=== PATIENT | male | born 1965 | race Caucasian/White ===

== ENCOUNTER 2023-11-10 13:16 | Outpatient (AMB) | payer OTHER, SELFPAY ==
[2023-11-10 13:19] VITALS: BP 160/92; PULSE 76; TEMP 36.3; O2SAT 95; BMI 31.3
--- NOTE | 2023-11-10 13:19 | MHC.OFFWIV ---
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 Pt has h/o Asthma, but currently not on any medications. Pt has a PCP at [facility] Social History Patient Tobacco Use Status: Never used Tobacco Review of Systems Const All systems reviewed & are unremarkable except as noted in HPI and below Physical Exam Vital Signs: Last Vital Signs Temp 97.3 F 11/10/23 13:19 Pulse 76 11/10/23 13:19 BP 160/92 H 11/10/23 13:19 Pulse Ox 95 11/10/23 13:19 Oxygen Delivery Method Room Air 11/10/23 13:19 BMI result Body Mass Index 31.3 Const General: comfortable and no acute distress Nutritional Appearance: overweight Orientation/consciousness: patient oriented x3 HEENT Head: Yes normocephalic Ears: external ears normal and TM's normal bilaterally General nose exam: Abnormal mucous membranes and turbinates present boggy and erythematous Face and sinus: Yes sinuses nontender Mouth: moist mucous membranes Throat: Yes posterior oropharynx normal Resp Effort & Inspection: normal respiratory effort, able to speak in complete sentences and Actively coughing Auscultation: no crackles, no rales, rhonchi lower bilaterally and wheezes scattered wheezes Cardio Rate: regular rate Rhythm: regular rhythm Neuro General: patient oriented x3, gait normal and moves all extremities Psych Speech and movement: Normal speech and movement present Office Procedures Nebulizer Treatment Nebulizer Treatment [id number] RX initial, or Nebulizer Subsequent Treatment Office Meds ipratropium 0.5 mg-albuterol 3 mg (2.5 mg base)/3 mL nebulization soln Performing Provider: Penny Bowie NP Performing Location: [facility] [place] Administered by: Penny Bowie NP on 11/10/23 16:46 Dose Route Admin Location Dispensed Lot Number Expiration Date NDC Scaffolding Helper 3 mL inhalation 3 mL [id number] [facility] Assessment & Plan Assessment & Plan (1) Asthma with acute exacerbation in adult: Code(s): J45.901 - Unspecified asthma with (acute) exacerbation Qualifiers: Asthma persistence: persistent Asthma severity: moderate Qualified Code(s): J45.41 - Moderate persistent asthma with (acute) exacerbation Plan: - Xray of chest ordered - Take medications as prescribed - Rest. - F/U with PCP. Orders: Orders XR chest 2V Today J45.41 - Moderate persistent asthma with (acute) exacerbation CT chest wo con - High Res Today J45.41 - Moderate persistent asthma with (acute) exacerbation AMB Nebulizer Treatment Today J45.41 - Moderate persistent asthma with (acute) exacerbation Medications: New fluticasone propion-salmeterol 115-21 mcg/actuation (Advair HFA) 2 puffs inhalation BID 12 grams 1RF Asthma J45.41 - Moderate persistent asthma with (acute) exacerbation prednisone 50 mg PO DAILY 5 days 5 tabs 0RF J45.41 - Moderate persistent asthma with (acute) exacerbation doxycycline hyclate 100 mg PO BID 10 days 20 caps 0RF J45.41 - Moderate persistent asthma with (acute) exacerbation azithromycin 500 mg PO DAILY 3 days 3 tabs 0RF J45.41 - Moderate persistent asthma with (acute) exacerbation albuterol sulfate 90 mcg/actuation 2 puffs inhalation Q4-6H PRN 8.5 grams 0RF shortness of breath or wheezing J45.41 - Moderate persistent asthma with (acute) exacerbation Coding Level of Care Code New Pt Level 4 (30702) Diagnoses Moderate persistent asthma with acute exacerbation in adult J45.41 Asthma persistence: persistent Asthma severity: moderate CPT Codes Nebulizer Treatment - Nebulizer Treatment, initial or subsequent: [id number]/MDI RX initial, or Nebulizer Subsequent Treatment ([id number]) Time Spent (min) 20
== END 2023-11-10 14:55 | disposition home or self-care (01) ==
PROVIDERS: PCP Internal Medicine; Visit Provider Nurse Practitioner Family
DX: J45.41 Moderate persistent asthma with (acute) exacerbation (principal)
CPT/HCPCS: 94640; 99204; J7620

== ENCOUNTER 2023-11-10 13:44 | Outpatient (REF) | payer OTHER, SELFPAY ==
--- NOTE | ~2023-11-10 | XR_ITS ---
EXAMINATION: XR CHEST CLINICAL INFORMATION: Persistent asthma with acute exacerbation COMPARISON: None available. TECHNIQUE: 2 views of the chest were obtained. FINDINGS: Abnormal. There is diffuse patchy alveolar opacity noted throughout the lungs chronicity uncertain. Although underlying fibrotic change could've such an appearance that cannot exclude a superimposed acute inflammatory process. High-resolution chest CT would be advised. No pleural effusions. Heart and pulmonary vessels are normal. There is mild spondylitic change in the spine. XR/XR chest 2V IMPRESSION: Diffuse alveolar airspace disease.
== END 2023-11-10 13:45 | disposition home or self-care (01) ==
LOC: HO.HMGCX 13:44
PROVIDERS: PCP Internal Medicine; Visit Provider Nurse Practitioner Family
DX: J45.41 Moderate persistent asthma with (acute) exacerbation (principal)
CPT/HCPCS: 71046

== ENCOUNTER 2023-12-02 15:20 | Outpatient (REF) | payer OTHER, SELFPAY ==
--- NOTE | ~2023-12-02 | CT_ITS ---
EXAMINATION: CT CHEST WITHOUT CONTRAST CLINICAL INFORMATION: Moderate persistent asthma with exacerbation COMPARISON: Chest radiograph 11/10/2023 TECHNIQUE: Multidetector volumetric CT imaging of the chest was obtained after without intravenous contrast. Axial MIP volume rendering provided. Sagittal and coronal reformatted images were obtained. This CT examination was performed using dose optimization techniques as appropriate, variously including the following: *Automated exposure control *Adjustment of mA and/or kV according to patient size (this includes techniques or standardized protocols for targeted exams where dose is matched to indication/reason for exam; i.e. extremities or head) *Use of iterative reconstruction technique DLP: 316 mGy-cm FINDINGS: LUNGS: Innumerable pulmonary masses/nodules are seen scattered throughout the lungs ranging in size from a a few millimeters up to approximately 2 cm (for example 7:117, left lower lobe). Marked bronchial wall thickening is present. MEDIASTINUM: The mediastinum is normal. VASCULAR: Unremarkable. No coronary calcium is seen. PLEURA: There is no pleural effusion. No pleural mass or thickening. AXILLA: No lymphadenopathy. UPPER ABDOMEN: There is cholelithiasis with small layering gallstones without evidence of cholecystitis. OSSEOUS STRUCTURES: Unremarkable. CT/CT chest wo con - High Res IMPRESSION: Innumerable pulmonary masses/nodules. Differential diagnosis would include metastatic disease, septic emboli, granulomatous disease, sarcoidosis, silicosis among others. Pulmonary consultation is recommended. PET/CT or tissue sampling may be indicated. Fleischner guidelines were followed.
== END 2023-12-02 15:21 | disposition home or self-care (01) ==
LOC: HO.CT 15:20
PROVIDERS: PCP Internal Medicine; Visit Provider Nurse Practitioner Family
DX: J45.41 Moderate persistent asthma with (acute) exacerbation (principal)
CPT/HCPCS: 71250

== ENCOUNTER 2023-12-15 08:21 | Outpatient (AMB) | payer OTHER, SELFPAY ==
[2023-12-15 08:39] VITALS: BP 150/100; PULSE 81; TEMP 36.4; O2SAT 96; BMI 29.2
--- NOTE | 2023-12-15 08:39 | AM.OFFWIN_ITS ---
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 Patient states he has had a persistent cough with mild shortness of breath and intermittent chest pain. Patient states he has been prescribed antibiotic therapy as well as prednisone but his cough persists. The patient's states that he has had a 30 lb weight loss since September 06, 2023. Patient denies having any history of IVDU, fevers, chills, hemoptysis or orthopnea. Patient had CT imaging on December 01 which revealed multiple pulmonary masses and nodules and the differential diagnosis includes both metastatic disease and/or septic emboli. Patient denies any recent travel however plans to travel to [place] in two weeks to visit his son. [facility] Medical History (Updated 12/15/23 @ 17:26 by Lesa Alaniz MD) Pulmonary nodules/lesions, multiple Asthma Social History Patient Tobacco Use Status: Never used Tobacco Review of Systems Const Denies chills, Denies fever(s) and Reports weight loss (30lbs since August 2023) Eyes Reports no additional complaints ENT Reports no additional complaints Card Reports no additional complaints, Reports chest pain (intermittent) and Reports dyspnea Resp Reports cough, Denies hemoptysis and Reports dyspnea GI Reports no additional complaints Reports no additional complaints Musc Reports no additional complaints Physical Exam Vital Signs: Last Vital Signs Temp 97.6 F 12/15/23 08:39 Pulse 81 12/15/23 08:39 BP 150/100 H 12/15/23 08:39 Pulse Ox 96 12/15/23 08:39 Oxygen Delivery Method Room Air 12/15/23 08:39 BMI result Body Mass Index 29.2 Patient is afebrile and hypertensive. Const General: cooperative, healthy appearing, comfortable, no acute distress, well developed, alert and awake Nutritional Appearance: average body habitus Orientation/consciousness: patient oriented x3 Limitations: no limitations Resp Effort & Inspection: normal respiratory effort, able to speak in complete sentences, normal respiratory pattern, no audible wheezes, Actively coughing Quality: actively coughing and no respiratory distress Auscultation: rales on the left at the base and wheezes expiratory wheezes Cardio Rate: regular rate Rhythm: regular rhythm Neuro General: patient oriented x3 Psych Appearance: grossly normal Mental Status: mental status grossly normal Insight: Good insight present (Psych) Judgement: Good judgement present (Psych) Results Reviewed Results Reviewed: Reviewed CT imaging from December 01 with patient. Assessment & Plan Assessment & Plan (1) Pulmonary nodules/lesions, multiple: Comment: CT imaging is reviewed. Given the possibility of septic emboli versus metastatic disease, patient is transferred to the emergency department for CTA evaluation and laboratories. Code(s): R91.8 - Other nonspecific abnormal finding of lung field Plan: Patient will go directly to the emergency department for further evaluation and care. fitter placer Joseph notified 9:29am. Coding Level of Care Code Est Pt Level 3 (36102) Diagnoses Pulmonary nodules/lesions, multiple R91.8 Time Spent (min) 25
== END 2023-12-15 09:42 | disposition home or self-care (01) ==
PROVIDERS: PCP Internal Medicine; Visit Provider Physician Assistant
DX: R91.8 Other nonspecific abnormal finding of lung field (principal)
CPT/HCPCS: 99213

== ENCOUNTER 2023-12-15 09:48 | Emergency (ER) | payer OTHER, SELFPAY ==
--- NOTE | ~2023-12-15 | CT_ITS ---
EXAMINATION: CTA CHEST CT ABDOMEN AND PELVIS WITH CONTRAST CLINICAL INFORMATION: Lung mass. Metastatic disease COMPARISON: CT of chest December 02, 2023 TECHNIQUE: A noncontrast localizer was performed, followed by the administration of 85 mL Omnipaque [address] of the chest was then performed. Coronal and sagittal reformatted and 3-D technique MIP images of the chest were completed at the CT scanner and reviewed on the PACS workstation. No adverse effects were reported. Images were then performed through the abdomen and pelvis. Coronal and sagittal reformatted images performed at CT scanner by technologist. [This CT examination was performed using dose optimization techniques as appropriate, variously including the following: *Automated exposure control *Adjustment of mA and/or kV according to patient size (this includes techniques or standardized protocols for targeted exams where dose is matched to indication/reason for exam; i.e. extremities or head) *Use of iterative reconstruction technique] DLP: 892 mGy-cm. FINDINGS: CTA CHEST Vascular: The main pulmonary artery, secondary and tertiary branches of the pulmonary artery are normally opacified with no evidence of pulmonary embolism. The aorta and great vessels are unremarkable. Mediastinum: No significant mediastinal lymphadenopathy. Heart size is normal. No pericardial effusion. No aneurysm or dissection of aorta. CORONARY ARTERIES: Volume of coronary calcification:None Lungs: Redemonstration of innumerable lung nodules. These measure a few millimeters to largest measuring about 2 cm. There is bronchial wall thickening most pronounced at the lung bases. Fluid: There is no pericardial effusion. There is no pleural effusion. Axilla: No significant lymphadenopathy. CT SCAN ABDOMEN/PELVIS: Liver, Gallbladder and Biliary Tree: The liver is normal in size, shape, and attenuation. No focal hepatic lesion or biliary ductal dilatation is present. The gallbladder is unremarkable with no evidence of radiopaque gallstones, gallbladder wall thickening, or obvious pericholecystic inflammatory changes. Pancreas: Unremarkable. Spleen: Unremarkable. Adrenal Glands: Unremarkable. Kidneys and Ureters: The kidneys are normal in size, shape, and attenuation. No hydronephrosis, hydroureter, or calculi seen. No perinephric stranding. Bladder: Unremarkable. Gastrointestinal Tract: The small and large bowel are unremarkable. The appendix is unremarkable. Abdominal Wall: No significant hernia is appreciated. Lymph Nodes: No significant lymphadenopathy. There are a few subcentimeter lymph nodes in the retroperitoneum and in the groin. Vascular: Scattered vascular wall calcifications of aorta and iliac arteries. There is no aneurysm. Pelvic Viscera: Prostate enlarged measuring 6.3 cm transverse. Osseous Structures: Multilevel degenerative spondylosis spine. CT/CT abdomen pelvis w IV con IMPRESSION: CT CHEST: 1. No evidence of pulmonary embolism. 2. Redemonstration of innumerable lung nodules . CT ABDOMEN PELVIS: 1. No evidence of metastatic change of the abdomen or pelvis. 2. Enlarged prostate.
--- NOTE | ~2023-12-15 | XR_ITS ---
EXAMINATION: XR CHEST CLINICAL INFORMATION: Chest pain COMPARISON: 11/10/2023 CT scan and radiograph from 11/10/2023 TECHNIQUE: Frontal view of the chest was obtained. FINDINGS: There are innumerable ill-defined lung nodules against reticulonodular pattern unchanged since previous examinations. Cardiomediastinal silhouette is normal. XR/XR chest 1V IMPRESSION: Reticulonodular pattern with a numerable lung nodules. Stable
[2023-12-15 09:56] VITALS: BP 165/104; PULSE 84; RESP 18; TEMP 36.8; O2SAT 95; BMI 29.1
--- NOTE | 2023-12-15 10:01 | ECG_ITS ---
Test Reason : cp Blood Pressure : / mmHG Vent. Rate : 072 BPM Atrial Rate : 072 BPM P-R Int : 158 ms QRS Dur : 092 ms QT Int : 384 ms P-R-T Axes : 044 -16 022 degrees QTc Int : 420 ms Normal sinus rhythm Minimal voltage criteria for LVH, may be normal variant ( R in aVL ) Borderline ECG No previous ECGs available Referred By: Generic ED Physician Electronically Signed By:LIA COTTER
[2023-12-15 10:22] LABS: MANUAL DIFF FLAG NO
[2023-12-15 10:24] LABS: Basophils Percent Auto 0.6 % (0-2); Eosinophils Absolute Auto 0.5 X10*3/uL (0.0-0.4); Eosinophils Percent Auto 7.8 % (0-4); Hematocrit 46.9 % (42.0-52.0); Hemoglobin 15.7 g/dl (14.0-18.0); Imm Gran Abs Auto 0.02 X10*3/uL (0.00-0.03); Imm Gran Pct Auto 0.3 % (0.0-0.4); Mean Corpuscular HGB Conc 33.5 g/dl (31.0-36.0); Mean Corpuscular Hemoglobin 27.9 pg (27.0-33.0); Mean Corpuscular Volume 83.5 fL (80.0-98.0); Mean Platelet Volume 11.6 fL (9.4-12.4); Monocytes Absolute Auto 0.7 X10*3/uL (0.1-1.2); Monocytes Percent Auto 10.5 % (2-11); Neutrophils Absolute Auto 4.1 x10*3/uL (2.0-8.3); Neutrophils Percent Auto 64.8 % (45-73); Platelet Count 164 X10*3/uL (160-400); Red Blood Count 5.62 X10*6/uL (4.60-5.80); Red Cell Distribution Width 12.8 % (11.0-16.0); White Blood Count 6.3 X10*3/uL (4.8-10.8)
[2023-12-15 10:36] LABS: Alanine Aminotransferase 28 U/L (0-40); Albumin Level 3.9 g/dL (3.5-5.0); Alkaline Phosphatase 78 U/L (39-117); Anion Gap 13 (12-20); Aspartate Amino Transferase 25 U/L (5-37); Bilirubin Total 0.6 mg/dL (0.0-1.0); Blood Urea Nitrogen 9 mg/dL (9-16); Calcium 9.3 mg/dL (8.4-10.2); Carbon Dioxide 26 mmol/L (22-29); Chloride 105 mmol/L (96-108); Creatinine Clr Calc Pharmacy 103.9; Estimated Glomerular Filt Rate > 60; Glucose Random 107 mg/dL (60-115); Potassium 4.1 mmol/L (3.3-5.1); Sodium 140 mmol/L (135-145)
[2023-12-15 10:50] LABS: Troponin-I High Sensitivity < 2.7 ng/L (<3.5-35.0)
[2023-12-15 10:59] LABS: Influenza A PCR NEGATIVE (Negative); Influenza B PCR NEGATIVE (Negative); Resp Syncy Virus RNA Qual PCR NEGATIVE (Negative); SARS COV2 PCR INHOUSE NEGATIVE (Negative)
--- NOTE | 2023-12-15 17:12 | ED_ITS ---
HPI - General Adult General Chief complaint: General Medical Stated complaint: cough Time Seen by Provider: 12/15/23 16:51 Source: patient and family Mode of arrival: ambulatory Limitations: no limitations History of Present Illness ED Provider: Dr. Lesa Alaniz HPI narrative: Patient comes to the emergency room complaining of cough for 5 months and a 30 lb weight loss in the same time. Patient states that he has been having a dry cough, no fever or chills, no hemoptysis. Patient had a dry chest CT scan done on December 01, 2 weeks ago, which showed innumerable masses versus nodules versus septic emboli. Patient denies shortness of breath, denies chest pain. Patient denies history of smoking Related Data Previous Rx's ?Medication ?Instructions ?Recorded albuterol sulfate 90 mcg/actuation 2 puff inhalation Q4-6H PRN 11/10/23 aerosol inhaler shortness of breath or wheezing #8.5 grams fluticasone propionate 115 2 puff inhalation BID Asthma #12 11/10/23 mcg-salmeterol 21 mcg/actuation grams HFA inhaler (Advair HFA) Allergies Allergy/AdvReac Type Severity Reaction Status Date / Time shellfish derived Allergy Unknown Verified 12/15/23 09:59 Review of Systems 2 Review of Systems: Constitutional : Complaining of therapy and weight loss and half months No Fever, No Chills, No Night Sweats, No Fatigue, No Malaise ENT/Mouth : No Hearing loss, No Ear Pain, No Nasal Congestion, No Sinus Pain, No Hoarseness, No sore throat, No Rhinorrhea, No Swallowing Difficulty Eyes: No Eye Pain, No Swelling, No Redness, No Foreign Body, No Discharge, No Vision Changes Cardiovascular : No Chest Pain, No SOB, No Dyspnea on Exertion, No Orthopnea, No Edema, No Palpitations Respiratory : Complaining of dry cough for 5 months, No Sputum, No Wheezing, No Smoke Exposure, No Dyspnea Gastrointestinal : No Nausea, No Vomiting, No Diarrhea, No Constipation, No abdominal Pain, No Hematochezia, No Melena Genitourinary : no irregular bleeding, No Dysuria, No Urinary Frequency, No Hematuria, No Urinary Incontinence, No Urgency, No Flank Pain, No Urinary Flow Changes, No Hesitancy Musculoskeletal : No joint pain, No Myalgias, No Joint Swelling Skin : No Skin Lesions, No rash Neuro : No Weakness, No Numbness, No Paresthesias, No Loss of Consciousness, No Dizziness, No Headache Psych : No Anxiety/Panic, No Depression, No SI/HI/AH/VH, No Social Issues, Heme/Lymph: No Bruising, No Bleeding,No Lymphadenopathy Endocrine : No Polyuria, No Polydipsia, No Temperature Intolerance [facility] Past Medical History Medical History (Updated 12/16/23 @ 00:57 by Lesa Alaniz MD) Pulmonary nodules/lesions, multiple Asthma Social History Social History Patient Tobacco Use Status: Never used Tobacco Smoked in Last 30 Days: No Use of substances other than those prescribed or required for medical reasons: No Advance Directives: No Advance Directives Information Provided: No Do you have a plan to hurt others: No Plan Physical Exam ED Vital Signs: Vital Signs - 24 hr 12/15/23 09:56 12/15/23 20:15 12/15/23 23:25 Temperature 98.3 F 97.6 F 98.4 F Pulse Rate 84 97 96 Respiratory Rate 18 16 16 Blood Pressure 165/104 H 160/103 H 158/103 H Pulse Oximetry 95 95 95 Oxygen Delivery Method Room Air Room Air Room Air BMI result Body Mass Index 29.1 Const Other: Appearance: Alert. Oriented X3. No acute distress. Eyes: Pupils equal, round and reactive to light. ENT: Pharynx normal. Neck: Normal inspection. Neck supple. No lymph nodes noted. No crepitus CVS: Normal heart rate and rhythm. Pulses normal. Normal S1 and S2 Respiratory: No respiratory distress. Breath sounds normal. No Wheezing. No rales Abdomen: Soft and nontender. No rigidity. No distention. Skin: Skin warm and dry. Normal skin color. Normal skin turgor. Extremities: No lower extremity edema. No Lacerations. No Rash Neuro: Oriented X 3. No motor deficit. No sensory deficit. Moving all extremities. No slurred speech. CN 2 through 12 grossly intact Psych: calm, cooperative, normal affect Medications Administered Discontinued Medications Generic Name Dose Route Start Last Admin Trade Name Freq PRN Reason Stop Dose Admin Iohexol 100 ml 12/15/23 18:31 12/15/23 18:32 Iohexol 350 Mg/Ml 100 Ml Infus..Btl IV 12/15/23 18:32 85 ml ONCE ONE Administration Medical Decision Making Medical Decision Making MDM Narrative: -I reviewed the CT scan which was done on December 01. Patient has innumerable low nodules. The differential is quite vast including miliary tuberculosis, metastatic cancer, septic emboli, granulomatous disease, sarcoidosis, silicosis, pulmonary fibrosis post COVID -patient will be moved to a negative pressure room -I discussed the patient with Dr. oMeller from Infectious Disease, all the CT scans and labs are pending. It is unlikely that patient may have miliary TB, on as he has been in the high risk area which she has not. -Patient used to be in the , but never abroad, only worked in several states within the [place] -patient will also need a pulmonary consult -to rule out any pathologic process of may be inhibiting patient's immune system, we will test the patient for HIV, hepatitis. Patient gave us verbal consent to do this tests -patient's CT scan for PE rule out was negative. -I discussed the patient and CT findings with Dr. Valderrama from pulmonology, patient's labs normal, not hypoxic, patient will follow-up I patient Differential Diagnosis Differential Diagnoses: The differential diagnosis associated with the presentation includes Admission/Observation Consideration of admission/observation: Escalation of care including admission/observation considered Consult Healthcare Provider Management of the patient was discussed with: Billboard Erector Helper Lab Data [facility] Lab Attestation statement: I reviewed the patient's lab results. 12/15/23 10:17 12/15/23 10:17 Labs: Lab Results 12/15/23 12/15/23 Range/Units 10:17 18:18 WBC 6.3 (4.8-10.8) X10*3/uL RBC 5.62 (4.60-5.80) X10*6/uL Hgb 15.7 (14.0-18.0) g/dl Hct 46.9 (42.0-52.0) % MCV 83.5 (80.0-98.0) fL MCH 27.9 (27.0-33.0) pg MCHC 33.5 (31.0-36.0) g/dl RDW 12.8 (11.0-16.0) % Plt Count 164 (160-400) X10*3/uL MPV 11.6 (9.4-12.4) fL Immature Gran % (Auto) 0.3 (0.0-0.4) % Neut % (Auto) 64.8 (45-73) % Lymph % (Auto) 16.0 L (20-40) % Garland % (Auto) 10.5 (2-11) % Eos % (Auto) 7.8 H (0-4) % Baso % (Auto) 0.6 (0-2) % Lymph # (Auto) 1.0 L (1.2-4.9) X10*3/uL Garland # (Auto) 0.7 (0.1-1.2) X10*3/uL Eos # (Auto) 0.5 H (0.0-0.4) X10*3/uL Baso # (Auto) 0.0 (0.0-0.2) X10*3/uL Abs Immat Gran (auto) 0.02 (0.00-0.03) X10*3/uL Absolute Neuts (auto) 4.1 (2.0-8.3) x10*3/uL Absolute Nucleated RBC 0.000 (0.0-0.012) X10*3/uL Nucleated RBC % (auto) 0.0 (0.0-0.2) /100WBC Sodium 140 (135-145) mmol/L Potassium 4.1 (3.3-5.1) mmol/L Chloride 105 (96-108) mmol/L Carbon Dioxide 26 (22-29) mmol/L Anion Gap 13 (12-20) BUN 9 (9-16) mg/dL Creatinine 0.81 (0.5-1.4) mg/dL Estim Creat Clear Calc 103.9 Estimated GFR > 60 Random Glucose 107 (60-115) mg/dL Calcium 9.3 (8.4-10.2) mg/dL Total Bilirubin 0.6 (0.0-1.0) mg/dL AST 25 (5-37) U/L ALT 28 (0-40) U/L Alkaline Phosphatase 78 (39-117) U/L Troponin I High Sens < 2.7 (<3.5-35.0) ng/L Total Protein 7.0 (6.5-8.0) g/dL Albumin 3.9 (3.5-5.0) g/dL COVID-19 (ELIJAH) Negative (Negative) COVID-19 Clin Com See Note Influenza Type A (RAYMUNDO) Negative (Negative) Influenza Type A (PCR) NEGATIVE (Negative) Influenza Type B (RAYMUNDO) Negative (Negative) Influenza Type B (PCR) NEGATIVE (Negative) Influenza A & B Note See Note RSV RNA Qual (PCR) NEGATIVE (Negative) SARS-CoV-2 RNA (RT-PCR) NEGATIVE (Negative) Independent Interpretation I performed an independent interpretation of an: CT Scan Radiology Impression Discussion of test interpretation with radiology: I have reviewed the radiologist's reading. Radiologist Impression: CTA CHEST Vascular: The main pulmonary artery, secondary and tertiary branches of the pulmonary artery are normally opacified with no evidence of pulmonary embolism. The aorta and great vessels are unremarkable. Mediastinum: No significant mediastinal lymphadenopathy. Heart size is normal. No pericardial effusion. No aneurysm or dissection of aorta. CORONARY ARTERIES: Volume of coronary calcification:None Lungs: Redemonstration of innumerable lung nodules. These measure a few millimeters to largest measuring about 2 cm. There is bronchial wall thickening most pronounced at the lung bases. Fluid: There is no pericardial effusion. There is no pleural effusion. Axilla: No significant lymphadenopathy. CT SCAN ABDOMEN/PELVIS: Liver, Gallbladder and Biliary Tree: The liver is normal in size, shape, and attenuation. No focal hepatic lesion or biliary ductal dilatation is present. The gallbladder is unremarkable with no evidence of radiopaque gallstones, gallbladder wall thickening, or obvious pericholecystic inflammatory changes. Pancreas: Unremarkable. Spleen: Unremarkable. Adrenal Glands: Unremarkable. Kidneys and Ureters: The kidneys are normal in size, shape, and attenuation. No hydronephrosis, hydroureter, or calculi seen. No perinephric stranding. Bladder: Unremarkable. Gastrointestinal Tract: The small and large bowel are unremarkable. The appendix is unremarkable. Abdominal Wall: No significant hernia is appreciated. Lymph Nodes: No significant lymphadenopathy. There are a few subcentimeter lymph nodes in the retroperitoneum and in the groin. Vascular: Scattered vascular wall calcifications of aorta and iliac arteries. There is no aneurysm. Pelvic Viscera: Prostate enlarged measuring 6.3 cm transverse. Osseous Structures: Multilevel degenerative spondylosis spine. CT/CT angio chest PE protocol IMPRESSION: CT CHEST: 1. No evidence of pulmonary embolism. 2. Redemonstration of innumerable lung nodules . CT ABDOMEN PELVIS: 1. No evidence of metastatic change of the abdomen or pelvis. 2. Enlarged prostate. Independent Historian Clinical information obtained from an independent historian. History obtained from or confirmed by: Spouse Critical Care Time Critical Care Time Critical Care Time: Yes Total Critical Care Time: 60 Attestation: I have personally provided critical care time. Time includes review of lab data, radiology results, discussion with consultants, and monitoring for potential decompensation. Intervention performed as documented. Discharge Plan Discharge Clinical Impression: Pulmonary nodules/lesions, multiple Patient Disposition: Home, Self-Care Instructions: Pulmonary Nodules (ED) Additional Instructions: Please follow-up with your primary care physician tomorrow. If you have any worsening or new symptoms, please return to the emergency room or call 911 Prescriptions: No Action albuterol sulfate 90 mcg/actuation HFA aerosol inhaler 2 puff inhalation Q4-6H PRN (Reason: shortness of breath or wheezing) Qty: 8.5 0RF fluticasone propion-salmeterol [Advair HFA] 115-21 mcg/actuation HFA aerosol inhaler 2 puff inhalation BID Qty: 12 1RF Referrals: Ehsan Valderrama MD [Physician] - 12/16/23 Print Language: Polish
[2023-12-15] MEDS: iohexoL 350 MG/ML 100 ML INFUS..BTL IV (18:32)
[2023-12-15 18:36] LABS: COVID-19 Test Negative (Negative); IDNOW Serial# 08D9AD1C
[2023-12-15 18:39] LABS: IDNOW Serial# 152EDE1D; Influenza A Negative (Negative); Influenza B2 Negative (Negative)
[2023-12-15 20:15] VITALS: BP 160/103; PULSE 97; RESP 16; TEMP 36.4; O2SAT 95
[2023-12-15 23:25] VITALS: BP 158/103; PULSE 96; RESP 16; TEMP 36.9; O2SAT 95
--- NOTE | 2023-12-15 23:46 | PC.NURSE ---
pt aware of plan of care, in room, aware of need to wear mask if leaving room. TB results pending
[2023-12-16 01:47] VITALS: BP 149/106; PULSE 90; RESP 20; TEMP 36.9; O2SAT 96
[2023-12-16 01:52] VITALS: BP 149/106; PULSE 90; RESP 20; TEMP 36.9; O2SAT 96
[2023-12-16 08:28] LABS: HBS Num1 0.63 mIU/mL (0-7.99); HBc Num1 0.12 S/CO (0.00-0.79); HBsAGNum1 0.46 S/CO (0.00-0.99); HIV AB/AG Nonreactive (Nonreactive); HIV Num 1 0.07 S/CO (0.00-0.99); Hepatitis A Antibody IgM 0.11 Index (0-0.79); Hepatitis B Core Antibody Nonreactive (Nonreactive); Hepatitis B Surface Antigen Negative (Negative); ~HepC Num1 0.06 S/CO (0.00-0.79); ~Hepatitis A Antibody IgM Nonreactive (Nonreactive); ~Hepatitis B Surface Antibody NONREACTIVE (Nonreactive); ~Hepatitis C Antibody Nonreactive (Nonreactive)
[2023-12-18 16:54] LABS: TS Negative Control Passed; TS Panel A 0; TS Panel B 0; TS Positive Control Passed; TSpotTB Negative (Negative)
== END 2023-12-16 01:53 | disposition home or self-care (01) ==
PROVIDERS: Emergency Provider Emergency Medicine; PCP Internal Medicine
DX: R91.8 Other nonspecific abnormal finding of lung field (principal); R63.4 Abnormal weight loss; J45.909 Unspecified asthma, uncomplicated; Z11.52 Encounter for screening for COVID-19; Z03.818 Encounter for observation for suspected exposure to other biological agents ruled out
CPT/HCPCS: 0241U; 36415; 71045; 71275; 74177; 80053; 84484; 85025; 86481; 86704; 86706; 86709; 86803; 87070; 87205; 87340; 87389; 87502; 87635; 93005; 99284; Q9967

== ENCOUNTER → 2023-12-15 10:01 | Outpatient (BNV) | payer OTHER, SELFPAY | PROVIDERS: Emergency Provider Emergency Medicine; PCP Internal Medicine; Visit Provider Internal Medicine | DX: R07.9 Chest pain, unspecified (principal) | CPT/HCPCS: 93010 ==

== ENCOUNTER 2023-12-23 12:43 | Outpatient (AMB) | payer OTHER, SELFPAY ==
[2023-12-23 12:48] VITALS: BP 144/88; PULSE 74; O2SAT 94; BMI 28.3
--- NOTE | 2023-12-23 12:48 | MHC.OFFVIS ---
Vital Signs 12/23/23 12:48 Height 5 ft 8 in Weight 186 lb 4.65 oz BMI 28.3 BP 144/88 H Blood Pressure Location Rt brachial Position Sitting Pulse 74 Pulse Source Doppler Pulse Oximetry (%) 94 Oxygen Delivery Method Room Air Intake Visit Reasons: [place] [facility] [place] Allergies shellfish derived Allergy (Verified 12/23/23 12:51) Unknown HPI HPI [place] [facility] [place]: Details: 58-year-old gentleman, nonsmoker family history of lung cancer in maternal uncle, no prior personal history of lung disease referred for evaluation of abnormal CT scan obtained for evaluation of chronic cough in the emergency room that showed multiple bilateral pulmonary nodules up to 2.5 cm. Patient is also complain of unintentional weight loss of approximately 30 lb over the last 3-4 months. He does have nonproductive cough. Patient has been employed without exposure to industrial dusts. [facility] Medical History (Updated 12/23/23 @ 13:54 by Ehsan Valderrama MD) Pulmonary nodules/lesions, multiple Asthma Social History Patient Tobacco Use Status: Never used Tobacco Review of Systems Const Denies daytime sleepiness, Denies excessive sweating, Denies fatigue, Denies fever(s), Denies lethargy, Denies malaise, Denies night sweats, Denies snoring and Reports weight loss Eyes Denies blurry vision and Denies itchy eyes ENT Denies nasal congestion, Denies post nasal drip, Denies sinus pain, Denies sinus pressure and Denies other ( Thrush) Card Denies chest pain, Denies pedal edema, Denies dyspnea, Denies orthopnea and Denies paroxysmal nocturnal dyspnea Resp Reports cough, Denies hemoptysis, Denies excessive phlegm production, Denies dyspnea, Denies snoring and Denies wheezing GI Denies abdominal pain and Denies heartburn Musc Denies myalgias, Denies arthralgias and Denies joint swelling Skin/Breast Denies rash Neuro Denies memory loss and Denies seizure-like activity Psych Denies abnormal sleep pattern, Denies anxiety and Denies memory loss Endo Denies excessive sweating, Denies fatigue and Denies heat intolerance Sonu/Lymph Denies easy bruising Aller/Immun Denies itchy eyes, Denies seasonal rhinorrhea and Denies wheezing Physical Exam Vital Signs: Last Vital Signs Pulse 74 12/23/23 12:48 BP 144/88 H 12/23/23 12:48 Pulse Ox 94 12/23/23 12:48 Oxygen Delivery Method Room Air 12/23/23 12:48 BMI result Body Mass Index 28.3 Const General: no acute distress and alert Nutritional Appearance: not obese Orientation/consciousness: Other orientation findings ( oriented) HEENT Head: Yes atraumatic Eyes General: appearance normal, both eyes and all related structures Sclerae: sclerae normal EOM: EOMs intact bilaterally Neck Neck: Yes supple Lymphatic: no lymphadenopathy noted Resp Effort & Inspection: normal respiratory effort and no use of accessory muscles Auscultation: clear to auscultation bilaterally Cardio Rate: regular rate Rhythm: regular rhythm Heart sounds: no gallops, no murmurs and no rubs Skin General skin exam: other ( warm) Extrem General: No clubbing, No cyanosis and No edema Assessment & Plan Assessment & Plan (1) Abnormal CT scan, chest: Code(s): R93.89 - Abnormal findings on diagnostic imaging of other specified body structures Category: Medical (2) Unintended weight loss: Code(s): R63.4 - Abnormal weight loss Category: Medical (3) Lung mass: Code(s): R91.8 - Other nonspecific abnormal finding of lung field Category: Medical Plan unclear etiology of pulmonary findings, may have malignant or inflammatory origin. Will obtain transthoracic biopsy of dominant left lower lobe 2.5 cm nodule. Will start on empiric Breo. Orders: Orders CT biopsy lung LT Today R91.8 - Other nonspecific abnormal finding of lung field Medications: New fluticasone furoate-vilanterol 200-25 mcg/dose (Breo Ellipta) 1 inh inhalation DAILY 1 inhaler 6RF Discontinued fluticasone propion-salmeterol 115-21 mcg/actuation (Advair HFA) Discontinued Reason: Doctor's Order 2 puffs inhalation BID 12 grams 1RF Asthma J45.41 - Moderate persistent asthma with (acute) exacerbation Coding Level of Care Code New Pt Level 4 (87230) Diagnoses Abnormal CT scan, chest R93.89 Unintended weight loss R63.4 Lung mass R91.8
== END 2023-12-23 13:12 | disposition home or self-care (01) ==
PROVIDERS: PCP Internal Medicine; Referring Provider Emergency Medicine; Visit Provider Internal Medicine Pulmonary Disease
DX: R93.89 Abnormal findings on diagnostic imaging of other specified body structures (principal); R63.4 Abnormal weight loss; R91.8 Other nonspecific abnormal finding of lung field
CPT/HCPCS: 99204

== ENCOUNTER → 2023-12-23 12:43 | Outpatient (BNVA) | payer OTHER, SELFPAY | PROVIDERS: PCP Internal Medicine; Referring Provider Emergency Medicine; Visit Provider Internal Medicine Pulmonary Disease ==

== ENCOUNTER 2024-01-03 08:58 | Day surgery (SDC) | payer OTHER, SELFPAY ==
[2024-01-03] VITALS (11 sets, daily range): BP systolic 132–163; BP diastolic 83–97; PULSE 58–79; RESP 14–18; TEMP 36.6–36.8; O2SAT 92–98; BMI 27.9
--- NOTE | ~2024-01-03 | XR_ITS ---
EXAMINATION: XR CHEST CLINICAL INFORMATION: Status post left lung biopsy 2 hours post biopsy. COMPARISON: 01/03/2024, 12/15/2023, CT chest 12/15/2023. TECHNIQUE: Frontal view of the chest was obtained. FINDINGS: Lung volumes are low. There is no gross pneumothorax. Stable cardiomediastinal silhouette. Redemonstration of diffuse, innumerable ill-defined pulmonary nodules. Wire device redemonstrated overlying the lower lateral left thorax. XR/XR chest 1V IMPRESSION: 1. No gross pneumothorax. 2. Redemonstration of diffuse, innumerable ill-defined pulmonary nodules.
--- NOTE | ~2024-01-03 | XR_ITS ---
EXAMINATION: XR CHEST CLINICAL INFORMATION: Status post left lung biopsy. COMPARISON: CT chest 12/15/2023. X-ray chest 11/18/2023 and 11/10/2023. TECHNIQUE: Frontal view of the chest was obtained. FINDINGS: Redemonstration of innumerable ill-defined pulmonary nodules. There is no gross pneumothorax. Lung volumes are low. Heart size is normal. Degenerative changes in the thoracic spine. Wire device overlies the lower lateral left hemithorax. Bibasilar subsegmental atelectasis. XR/XR chest 1V IMPRESSION: 1. Redemonstration of innumerable ill-defined pulmonary nodules. 2. There is no gross pneumothorax.
--- NOTE | ~2024-01-03 | CT_ITS ---
Innumerable lung nodules. The largest nodule is located in the left lower lobe. Pulmonology requests a lung biopsy. PROCEDURES: 1. Limited preprocedure CT of the chest. Permanent images saved in PACS. 2. CT-guided biopsy of the left lung mass. 3. Limited postprocedure CT of the chest. Permanent images saved in PACS. CLINICIANS: Marc Aguirre PA-C MEDICATIONS: -Versed 1 mg, Fentanyl 50 mcg, and lidocaine 1% 10 mL SQ -Antibiotics: None -For additional details, please see nursing flowsheet. COMPLICATIONS: None ESTIMATED BLOOD LOSS: < 5 ml CONTRAST: None SPECIMENS: 5 x 20 g cores were sent for pathology and microbiology MODERATE SEDATION TIME: 19 min PROCEDURE NOTE: The procedure, risks, benefits, and alternatives were carefully explained to the patient and written informed consent was obtained. The patient was placed in the right lateral decubitus position on the CT table. A timeout was performed. A limited CT of the chest was performed to localize the left lung nodule and choose appropriate needle entry and trajectory. The patient was prepped and draped in usual sterile fashion. The skin and deeper soft tissues were anesthetized with lidocaine. Under CT guidance, a19 gague trocar needle was advanced to the left lung nodule. A 20 gauge biopsy device was inserted through the trocar needle and advanced into the mass. A total of 5 cores were performed. The specimens were sent to pathology and microbiology. A total of 10 mL of nonclotted blood was obtained from the patient's IV by the nursing staff. A blood patch was then administered through the trocar needle. The needle was removed. A dry dressing was applied and secured with Tegaderm. A limited postprocedure CT of the chest was performed, which did not demonstrate any pneumothorax or hemothorax. There were no immediate complications. The patient was stable after the procedure and was transferred to the post anesthesia care unit. The procedure was done under moderate sedation with a dedicated nurse for monitoring of vital signs. CT/CT biopsy lung LT Impression: CT-guided left lung nodule biopsy This procedure was performed by Marc Aguirre PA-C and supervised by Dr. Begum.
[2024-01-03 09:19] LABS: INTERNATIONAL NORM RATIO 1.1 (0.9-1.1); Prothrombin Time 13.1 SEC (11.1-13.3)
[2024-01-03 09:21] LABS: Partial Thromboplastin Time 32.4 SEC (26.0-36.8)
--- NOTE | 2024-01-03 10:26 | MHC.SHP ---
Pre-Procedural Eval Section A - 24 Hr Update-Section A only Date of Service: 01/03/24 Section B - Complete if H&P > 30 days Chief Complaint: left lung, lll nodule Details of Present Illness: 58 y/o man with innumerable lung nodules, L>R. Pulmonology requests a biopsy Relevant Family History (Specify if Yes): No Relevant Social History: None Present Medications: see Short Stay Collaborative assessment Medical History: No relevant PMH History of Previous Operations: No relevant previous surgery Allergies: Allergies Allergy/AdvReac Type Severity Reaction Status Date / Time shellfish derived Allergy Unknown Verified 01/03/24 09:08 Review of Systems Sugical H&P ROS: Negative: Cardiovascular, Neurological and Integumentary and Yes, Specify: Constitution (weight loss) and Respiratory (cough) Exam Surgical H&P Exam: Normal: Heart, Normal: Lungs, Normal: Skin and Normal: Neurological and Not Evaluated: HEENT Plan CT left lung biopsy, possible right lung biopsy Time Spent With Patient Time: Total time managing care of this patient today ____ minutes.
== END 2024-01-03 14:13 | disposition home or self-care (01) ==
PROVIDERS: Physician Assistant Surgical; Radiology Vascular & Interventional Radiology; PCP Internal Medicine; Visit Provider Internal Medicine Pulmonary Disease
DX: C78.02 Secondary malignant neoplasm of left lung (principal); R91.8 Other nonspecific abnormal finding of lung field; R93.89 Abnormal findings on diagnostic imaging of other specified body structures; J45.41 Moderate persistent asthma with (acute) exacerbation; R05.3 Chronic cough; R63.4 Abnormal weight loss; Z68.28 Body mass index [BMI] 28.0-28.9, adult; Z79.51 Long term (current) use of inhaled steroids
CPT/HCPCS: 32408; 36415; 71045; 85610; 85730; 87070; 87073; 87205; 88305; 88341; 88342; 88360; 99152; J2250; J2310; J3010

== ENCOUNTER → 2024-01-03 10:17 | Outpatient (BNV) | payer OTHER, SELFPAY | PROVIDERS: PCP Internal Medicine; Visit Provider Physician Assistant Surgical | DX: R91.8 Other nonspecific abnormal finding of lung field (principal) | CPT/HCPCS: 32408 ==

== ENCOUNTER 2024-01-16 10:27 | Outpatient (REF) | payer OTHER, SELFPAY ==
--- NOTE | ~2024-01-16 | XR_ITS ---
EXAMINATION: XR FEMUR, RIGHT CLINICAL INFORMATION: Assess right femur for treatment COMPARISON: None available. TECHNIQUE: AP and lateral views of the right femur were obtained, 5 views in total FINDINGS: Mild degenerative changes right hip. Degenerative type changes right knee with quadriceps enthesopathy and irregularity about the medial femoral condyle. Prominent tibial tubercle. No suprapatellar effusion. 2.4 cm permeative lucency is identified involving the mid posterior femoral shaft. There is diffuse long segment sclerotic appearing periosteal reaction/cortical thickening and remodeling at this level and within the proximal femur extending to the subtrochanteric region. On lateral view only, then longitudinal lucency extends from the permeative lesion inferiorly and posteriorly but no definite cortical disruption identified. XR/XR femur RT 2V IMPRESSION: Abnormal right femur as described.
== END 2024-01-16 10:28 | disposition home or self-care (01) ==
LOC: HO.XRAY 10:27
PROVIDERS: PCP Internal Medicine; Visit Provider Internal Medicine
DX: C79.51 Secondary malignant neoplasm of bone (principal)
CPT/HCPCS: 73552

== ENCOUNTER → 2024-01-16 15:00 | Outpatient (BNV) | payer OTHER, SELFPAY | PROVIDERS: PCP Internal Medicine; Referring Provider Internal Medicine Pulmonary Disease; Visit Provider Internal Medicine | DX: C18.7 Malignant neoplasm of sigmoid colon (principal); C78.00 Secondary malignant neoplasm of unspecified lung; C79.51 Secondary malignant neoplasm of bone; Z92.21 Personal history of antineoplastic chemotherapy | CPT/HCPCS: 99214; 99215 ==

== ENCOUNTER 2024-01-18 11:28 | Day surgery (SDC) | payer OTHER, SELFPAY ==
--- NOTE | ~2024-01-18 | IR_ITS ---
CLINICAL HISTORY: Metastatic colon cancer. The patient presents to interventional radiology for placement of a port for chemotherapy. PROCEDURES: 1. Real-time ultrasound-guided access into the right internal jugular vein after documentation of selected vessel patency, and permanent image storing in the patient records. 2. Placement of a 6.6 Yemeni single-lumen power port. CLINICIAN: Marc Aguirre PA-C MEDICATIONS: - Versed 1 mg, Fentanyl 50 mcg, Lidocaine 1% 10 mL SQ -Antibiotics: Ancef 2g -For additional details, please see nursing flowsheet. Complications: None. Estimated blood loss: <5 ml Specimens: None. Contrast: None. Fluoroscopy time: 0.9 min MODERATE SEDATION TIME: 24 min PROCEDURE NOTE: The procedure, risks, benefits, and alternatives were carefully explained to the patient and written informed consent was obtained. The patient was placed supine on the fluoroscopy table. A timeout was performed. The right neck and chest was prepped and draped in usual sterile fashion. Maximum barrier technique was utilized. Local anesthesia was administered to the access site with 1% lidocaine. Under ultrasound guidance, the right internal jugular vein was accessed with a 5 fr micropuncture set. A 0.035 in wire was advanced into the IVC. A peel-away sheath was advanced over the wire and into the SVC, and the wire was removed. Next, subcutaneous lidocaine was administered to the chest. The port pocket was created after the skin incision, utilizing blunt dissection. Using blunt dissection, a subcutaneous tunnel was created that connects from the port pocket to the venotomy site. Through the peel-away sheath, the 6.6 Yemeni port catheter was placed. The catheter position was verified with fluoroscopy to be at the superior vena cava/right atrial junction. The port was connected to the catheter and was placed in the pocket. The venotomy site was closed with a 3-0 Vicryl subcutaneous suture. The port incision site was closed with interrupted 3-0 Vicryl subcutaneous sutures and surgical glue. Prior to closing the skin, 1 g of Ancef solution was placed in the pocket. The port was tested, flushed, and packed with heparin per routine protocol. The patient tolerated the procedure well. The patient was stable after the procedure and was transferred to the PACU. The procedure was performed under moderate sedation and with a dedicated nurse with continuous monitoring of vital signs. A permanent image of the ultrasound the neck and fluoroscopic image of the chest was saved and sent to PACS. FINDINGS: 1. Patent right internal jugular vein 2. Placement of a 6.6 Yemeni single lumen power port. 3. Port flushes and aspirates very well with a 10 mL syringe. No pneumothorax. IR/IR cvc insert tunnel w prt/dyer assistant IMPRESSION: Placement of a 6.6 Yemeni single-lumen power port. PLAN: - The patient will be discharged home when stable by sedation protocol. - Port may be used immediately. This procedure was performed by Marc Aguirre PA-C, and directly supervised by Dr. Begum
[2024-01-18 11:55] VITALS: BMI 27.1
--- NOTE | 2024-01-18 13:54 | MHC.SHP ---
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 Relevant Family History (Specify if Yes): No Relevant Social History: None Present Medications: see Short Stay Collaborative assessment Medical History: Significant History History of Previous Operations: Relevant previous surgery/procedure and date(s) (lung biopsy- colon metastases) Allergies: Allergies Allergy/AdvReac Type Severity Reaction Status Date / Time shellfish derived Allergy Unknown Verified 01/16/24 13:52 Review of Systems Sugical H&P ROS: Negative: Cardiovascular, Neurological and Integumentary and Yes, Specify: Respiratory (cough) Exam Surgical H&P Exam: Normal: Heart, Normal: Lungs, Normal: Skin and Normal: Neurological Plan Port Time Spent With Patient Time: Total time managing care of this patient today ____ minutes.
[2024-01-18 14:14] VITALS: BP 141/87; PULSE 79; RESP 16; TEMP 36.4; O2SAT 94
[2024-01-18 14:29] VITALS: BP 145/90; PULSE 77; RESP 16; TEMP 36.4; O2SAT 95
== END 2024-01-18 14:40 | disposition home or self-care (01) ==
PROVIDERS: Radiology Vascular & Interventional Radiology; PCP Internal Medicine; Visit Provider Internal Medicine
DX: Z45.2 Encounter for adjustment and management of vascular access device (principal); C18.9 Malignant neoplasm of colon, unspecified; C78.00 Secondary malignant neoplasm of unspecified lung; J45.909 Unspecified asthma, uncomplicated
CPT/HCPCS: 36561; 99152; 99153; A4364; C1769; C1788; J0690; J1642; J1644; J2250; J2310; J3010

== ENCOUNTER → 2024-01-18 12:44 | Outpatient (BNV) | payer OTHER, SELFPAY | PROVIDERS: PCP Internal Medicine; Visit Provider Physician Assistant Surgical | DX: C18.9 Malignant neoplasm of colon, unspecified (principal); C78.00 Secondary malignant neoplasm of unspecified lung | CPT/HCPCS: 36561; 76937; 77001 ==

== ENCOUNTER 2024-03-31 08:16 | Outpatient (REF) | payer OTHER, SELFPAY ==
[2024-03-31 08:50] LABS: MANUAL DIFF FLAG NO
[2024-03-31 09:26] LABS: Appearance Urine Clear; Color Urine Yellow; Glucose Urine UA Negative (Negative); Leukocyte Esterase Urine Negative (Negative); Nitrite Urine Negative (Negative); Specific Gravity - Urine 1.015 (1.005-1.025); Urine Blood Negative (Negative); Urine Ketones Negative (Negative); Urine Protein Negative (Neg-Trace)
[2024-03-31 09:29] LABS: Basophils Percent Auto 0.6 % (0-2); Eosinophils Absolute Auto 0.1 X10*3/uL (0.0-0.4); Eosinophils Percent Auto 2.9 % (0-4); Imm Gran Abs Auto 0.04 X10*3/uL (0.00-0.03); Imm Gran Pct Auto 0.8 % (0.0-0.4); Lymphocytes Absolute Auto 1.3 X10*3/uL (1.2-4.9); Lymphocytes Percent Auto 28.2 % (20-40); Mean Corpuscular HGB Conc 34.2 g/dl (31.0-36.0); Mean Corpuscular Hemoglobin 28.2 pg (27.0-33.0); Mean Corpuscular Volume 82.4 fL (80.0-98.0); Mean Platelet Volume 10.6 fL (9.4-12.4); Monocytes Absolute Auto 0.6 X10*3/uL (0.1-1.2); Monocytes Percent Auto 12.4 % (2-11); Neutrophils Absolute Auto 2.6 x10*3/uL (2.0-8.3); Neutrophils Percent Auto 55.1 % (45-73); Platelet Count 141 X10*3/uL (160-400); Red Blood Count 4.61 X10*6/uL (4.60-5.80); Red Cell Distribution Width 15.9 % (11.0-16.0); White Blood Count 4.8 X10*3/uL (4.8-10.8)
[2024-03-31 10:04] LABS: Alanine Aminotransferase 26 U/L (0-40); Albumin Level 3.6 g/dL (3.5-5.0); Alkaline Phosphatase 71 U/L (39-117); Anion Gap 9 (12-20); Aspartate Amino Transferase 22 U/L (5-37); Bilirubin Total 0.3 mg/dL (0.0-1.0); Blood Urea Nitrogen 12 mg/dL (9-16); Calcium 9.1 mg/dL (8.4-10.2); Carbon Dioxide 27 mmol/L (22-29); Chloride 103 mmol/L (96-108); Estimated Glomerular Filt Rate > 60; Glucose Random 137 mg/dL (60-115); Potassium 4.2 mmol/L (3.3-5.1); Sodium 135 mmol/L (135-145); Total Protein 6.1 g/dL (6.5-8.0)
== END 2024-03-31 08:17 | disposition home or self-care (01) ==
LOC: HO.LAB 08:16
PROVIDERS: PCP Internal Medicine; Visit Provider Internal Medicine
DX: C78.00 Secondary malignant neoplasm of unspecified lung (principal); C18.9 Malignant neoplasm of colon, unspecified
CPT/HCPCS: 36415; 80053; 81003; 85025

== ENCOUNTER 2024-04-28 07:54 | Outpatient (REF) | payer OTHER, SELFPAY ==
[2024-04-28 08:21] LABS: MANUAL DIFF FLAG NO
[2024-04-28 08:38] LABS: Alanine Aminotransferase 21 U/L (0-40); Albumin Level 3.9 g/dL (3.5-5.0); Alkaline Phosphatase 77 U/L (39-117); Anion Gap 11 (12-20); Aspartate Amino Transferase 22 U/L (5-37); Basophils Percent Auto 0.4 % (0-2); Bilirubin Total 0.3 mg/dL (0.0-1.0); Blood Urea Nitrogen 10 mg/dL (9-16); Calcium 9.1 mg/dL (8.4-10.2); Carbon Dioxide 25 mmol/L (22-29); Chloride 106 mmol/L (96-108); Eosinophils Absolute Auto 0.1 X10*3/uL (0.0-0.4); Eosinophils Percent Auto 0.9 % (0-4); Estimated Glomerular Filt Rate > 60; Glucose Random 154 mg/dL (60-115); Hematocrit 40.6 % (42.0-52.0); Hemoglobin 13.9 g/dl (14.0-18.0); Imm Gran Abs Auto 0.02 X10*3/uL (0.00-0.03); Imm Gran Pct Auto 0.4 % (0.0-0.4); Lymphocytes Absolute Auto 1.2 X10*3/uL (1.2-4.9); Lymphocytes Percent Auto 21.9 % (20-40); Mean Corpuscular HGB Conc 34.2 g/dl (31.0-36.0); Mean Corpuscular Hemoglobin 29.9 pg (27.0-33.0); Mean Corpuscular Volume 87.3 fL (80.0-98.0); Mean Platelet Volume 9.9 fL (9.4-12.4); Monocytes Absolute Auto 0.8 X10*3/uL (0.1-1.2); Neutrophils Absolute Auto 3.4 x10*3/uL (2.0-8.3); Neutrophils Percent Auto 61.4 % (45-73); Platelet Count 135 X10*3/uL (160-400); Potassium 5.2 mmol/L (3.3-5.1); Red Blood Count 4.65 X10*6/uL (4.60-5.80); Red Cell Distribution Width 18.8 % (11.0-16.0); Sodium 137 mmol/L (135-145); Total Protein 6.6 g/dL (6.5-8.0); White Blood Count 5.5 X10*3/uL (4.8-10.8)
[2024-04-28 08:40] LABS: Appearance Urine Clear; Color Urine Yellow; Glucose Urine UA Negative (Negative); Leukocyte Esterase Urine Negative (Negative); Nitrite Urine Negative (Negative); Urine Blood Negative (Negative); Urine Ketones Negative (Negative); Urine Protein Trace mg/dL (Neg-Trace)
== END 2024-04-28 07:55 | disposition home or self-care (01) ==
LOC: HO.LAB 07:54
PROVIDERS: PCP Internal Medicine; Visit Provider Internal Medicine
DX: C18.9 Malignant neoplasm of colon, unspecified (principal); C78.00 Secondary malignant neoplasm of unspecified lung
CPT/HCPCS: 36415; 80053; 81003; 85025

== ENCOUNTER 2024-06-01 09:24 | Outpatient (REF) | payer OTHER, SELFPAY ==
--- NOTE | ~2024-06-01 | NM_ITS ---
EXAMINATION: NM BONE SCAN OF THE WHOLE BODY CLINICAL INFORMATION: Bone metastases, assess response to therapy. COMPARISON: No previous bone scan or recent radiographs are available for comparison. The diagnostic CT scan of the chest, abdomen, and pelvis, dated 06/01/2024, the same date as this bone scan, is available for comparison. TECHNIQUE: Multiple gamma scintillation camera images of the whole body were performed 2.75 hours following the intravenous administration of 26 mCi Tc-99m MDP. FINDINGS: In the head, there is a small subtle focus of minimally increased activity in the left occipital skull. There is a small focus of mildly increased activity present in the right side of the mandible, probably due to dental disease. In the thoracic cage and upper extremities, there is a focus of moderately increased activity present in the mid left scapula. In the spine, there is a focus of mildly increased activity in the right side of the T8 vertebral body. No other abnormalities are present in the spine other than a minimal thoracolumbar scoliosis with lumbar convexity to the left. In the pelvis, there is intense abnormally increased activity in a focus in the posterior left iliac bone that measures approximately 3.2 cm in largest dimension. In the lower extremities, there is moderately intense abnormally increased activity in a focus approximately 2 cm in greatest length in the mid shaft of the right femur. No other definite bony abnormalities are noted. The urinary bladder and faint visualization of both kidneys are noted. The contemporaneous CT scan shows abnormalities in the left scapula, T8 vertebral body, right femur and posterior left iliac bone that correspond well to the bone scan abnormalities on this scan described above. NM/NM bone scan whole body IMPRESSION: Metastatic lesions are visualized as described above in the left scapula, T8 vertebral body, posterior left iliac bone and right femoral midshaft. No prior bone scan is available for comparison. Electronically signed by: Eitan Ortiz MD 06/05/2024 09:56 AM [facility]
--- NOTE | ~2024-06-01 | CT_ITS ---
EXAMINATION: CT ABDOMEN AND PELVIS WITH CONTRAST CLINICAL INFORMATION: Metastatic colon CA to chest, evaluate abdomen and pelvis for response to therapy. Known bone metastases. COMPARISON: Left lung biopsy CT-guided, 01/03/2024. CTPA 12/15/2023. PET/CT dated 01/17/2024 from outside institution is not available for direct comparison. Abdomen and pelvis CT 12/15/2023. TECHNIQUE: Multidetector volumetric images were obtained from the superior aspect of the liver through the pubic symphysis following administration 85 mL of Omnipaque 350 intravenous contrast. Sagittal and coronal reformatted images were obtained on the technologist's workstation. Oral contrast: No This CT examination was performed using dose optimization techniques as appropriate, variously including the following: *Automated exposure control *Adjustment of mA and/or kV according to patient size (this includes techniques or standardized protocols for targeted exams where dose is matched to indication/reason for exam; i.e. extremities or head) *Use of iterative reconstruction technique DLP: 355.3 mGy-cm FINDINGS: LUNG BASES: Innumerable metastatic lesions throughout both lung bases. Refer to the dedicated chest CT performed concurrently. No effusions. LIVER, GALLBLADDER, AND BILIARY TREE: The liver is normal in size, shape, and attenuation. No focal hepatic lesion or biliary ductal dilatation is present. The gallbladder has a normal appearance aside from small radiopaque layering gallstones. PANCREAS: -There is notable atrophy of the pancreas at the mid body level and more distally involving the tail, with associated dilatation of the main pancreatic duct up to approximately 5 mm in diameter. No definite parenchymal lesion is evident although given the appearance, a subtle lesion in the pancreatic body is suspected and not excluded. (Series 4, image 179). There has been no change in this finding. SPLEEN: Unremarkable. ADRENAL GLANDS: Unremarkable. KIDNEYS AND URETERS: The kidneys are normal in size, shape, and attenuation. No hydronephrosis, hydroureter, or calculi seen. No perinephric stranding. BLADDER: -Mild wall thickening, most likely on the basis of chronic outlet obstruction. -Otherwise normal. GASTROINTESTINAL TRACT: -No acute findings evident. Colonic primary is not well seen by CT. ABDOMINAL WALL: No significant hernia is appreciated. LYMPH NODES: -There are borderline enlarged lymph nodes in the gastrohepatic ligament region measuring up to 9 mm short axis (series 3, image 20). Previously these measured up to 1.2 cm. -Marine central mesentery, with nonpathologically enlarged shotty lymph nodes in the central and left lower quadrant mesentery, nonspecific. -Stable para-aortic partially calcified lymph nodes measuring up to 8 mm short axis (series 3, image 39).. VASCULAR: -No aortic aneurysm. Mild to moderate calcific and soft atheromatous changes. No venous thrombosis evident. PELVIC VISCERA: -Marked prostatic enlargement, the prostate measuring 6.2 cm in transverse diameter. There is a small amount of enhancement noted in the right peripheral zone, nonspecific. The median lobe protrudes mildly into the bladder base. OSSEOUS STRUCTURES: -Mixed lytic and sclerotic lesion in the left medial posterior ileum, crossing the inferior left SI joint, measuring 5.2 x 3.1 cm in axial plane. (Series 3, image 70). -Tiny sclerotic focus right aspect L4 as well as the left pedicle, suspicious. -Probable bone islands in the femoral heads bilaterally. -There is a grade 1 spondylolisthesis L5-S1. -There is bony fusion of both SI joints, uncertain significance or etiology. CT/CT abdomen pelvis w IV con IMPRESSION: 1. Mild improvement in gastrohepatic borderline enlarged lymphadenopathy. Stable calcified lymph nodes measuring up to 8 mm in the para-aortic region. 2. Atrophy of the distal pancreas at the level of the body with associated dilatation of the main pancreatic duct with abrupt transition. Cannot exclude underlying lesion in the body, although none seen. Correlation with enhanced abdominal pancreatic protocol MRI recommended in the nonacute setting. 3. Osseous metastasis left posterior ilium measuring up to 5.2 cm, and questionably small foci within the L4 vertebral body. 4. Similar marine mesentery with subcentimeter lymph nodes in the central small bowel mesentery. 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 5. Marked prostatic enlargement. Enhancement in the right peripheral zone, nonspecific. Median lobe protrudes into the bladder base. Consider workup in the nonacute setting. 6. No definite colonic lesions seen on this examination. 7. Additional ancillary findings as discussed. Findings communicated to Dr. Cox via phone call at 10:41 AM, 06/25/2024. Electronically signed by: Varun Gunter MD 06/25/2024 10:54 AM EST
--- NOTE | ~2024-06-01 | CT_ITS ---
EXAMINATION: CT CHEST WITH CONTRAST CLINICAL INFORMATION: Metastatic lung disease. Colon CA. COMPARISON: Left lung biopsy CT-guided, 01/03/2024. CTPA 12/15/2023. PET/CT dated 01/17/2024 from outside institution is not available for direct comparison. TECHNIQUE: Multidetector volumetric CT imaging of the chest was obtained after the administration of 50 mL of Omnipaque 350 intravenous contrast without immediate adverse reactions. Axial MIP volume rendering provided. Sagittal and coronal reformatted images were obtained. This CT examination was performed using dose optimization techniques as appropriate, variously including the following: *Automated exposure control *Adjustment of mA and/or kV according to patient size (this includes techniques or standardized protocols for targeted exams where dose is matched to indication/reason for exam; i.e. extremities or head) *Use of iterative reconstruction technique DLP: 153.8 mGy-cm FINDINGS: BENCH TECHNICIAN: -Innumerable pulmonary nodules. -Right chest port in place, tip terminating in the cavoatrial junction. LUNGS: -Innumerable random distribution pulmonary nodules throughout both lungs, worsening significantly from the prior exam. Largest confluent mass in the left lower lobe measuring 3.4 x 2.5 cm axial plane (series 4, image 35), previously measuring a similar 3.4 x 2.4 cm. -Foci of associated interlobular septal thickening suggesting appendix present in both lungs, consistent with lymphangitic spread. -No pneumothorax or pleural effusion. VASCULAR: -There are right lower lobe segmental and subsegmental pulmonary emboli identified. No definite left lung emboli is seen although exam limited by respiratory motion and is not tailored for PE. These were not present on 12/15/2023. -Aorta is normal. -Main pulmonary size is normal. No central emboli. MEDIASTINUM: -Normal thyroid. -There are several nonpathologically enlarged enhancing lymph nodes in the mediastinum, subcarinal region, and bilateral hilar regions. Largest measures 0.9 cm in the station 4R level. This is unchanged. -Chest port tip at the cavoatrial junction. -Heart size is normal. No definite right heart strain are reflux of contrast into the IVC. No pericardial effusion. -Mild thickening of the esophagus is present, suggesting underlying esophagitis. AXILLA/CHEST WALL: -No lymphadenopathy or mass. UPPER ABDOMEN: Refer to the dedicated abdomen and pelvis CT report, which was performed concurrently. OSSEOUS STRUCTURES: -Subtle osseous metastatic disease in T5, T7, the right glenoid, and left scapula. CT/CT chest w IV con IMPRESSION: 1. Worsening innumerable pulmonary nodules consistent with diffuse metastatic disease. Some areas of interlobular septal thickening also present bilaterally, suggesting lymphangitic spread. No effusions. 2. Osseous metastatic disease left scapula, T5 and T7 vertebral bodies, and right glenoid. 3. Right lower lobe segmental and subsegmental pulmonary emboli, not previously seen. Consider correlating with repeat CTPA to assess for the extent. No definite right heart strain or criteria met for submassive PE. 4. Additional ancillary findings as discussed. -Findings discussed with Dr. Vo via secure text, 10:15 AM, 06/25/2024. Electronically signed by: Varun Gunter MD 06/25/2024 10:19 AM [facility]
[2024-06-01] MEDS: iohexoL 350 MG/ML 100 ML INFUS..BTL IV (11:09)
== END 2024-06-01 09:25 | disposition home or self-care (01) ==
LOC: HO.CT 09:24
PROVIDERS: PCP Internal Medicine; Visit Provider Internal Medicine
DX: C79.51 Secondary malignant neoplasm of bone (principal)
CPT/HCPCS: 71260; 74177; 78306; A9503; Q9967

== ENCOUNTER → 2024-06-01 09:26 | Outpatient (BNV) | payer OTHER, SELFPAY | PROVIDERS: PCP Internal Medicine; Visit Provider Radiology Diagnostic Radiology | DX: C18.9 Malignant neoplasm of colon, unspecified (principal); C79.51 Secondary malignant neoplasm of bone | CPT/HCPCS: 71260; 74177 ==

== ENCOUNTER 2024-06-09 07:45 | Outpatient (REF) | payer OTHER, SELFPAY ==
[2024-06-09 08:05] LABS: Basophils Percent Auto 0.4 % (0-2); Eosinophils Absolute Auto 0.1 X10*3/uL (0.0-0.4); Eosinophils Percent Auto 1.7 % (0-4); Hematocrit 40.6 % (42.0-52.0); Hemoglobin 13.7 g/dl (14.0-18.0); Imm Gran Abs Auto 0.01 X10*3/uL (0.00-0.03); Imm Gran Pct Auto 0.2 % (0.0-0.4); Lymphocytes Percent Auto 20.1 % (20-40); MANUAL DIFF FLAG NO; Mean Corpuscular HGB Conc 33.7 g/dl (31.0-36.0); Mean Corpuscular Hemoglobin 31.1 pg (27.0-33.0); Mean Corpuscular Volume 92.3 fL (80.0-98.0); Mean Platelet Volume 10.2 fL (9.4-12.4); Monocytes Absolute Auto 0.7 X10*3/uL (0.1-1.2); Monocytes Percent Auto 13.9 % (2-11); Neutrophils Absolute Auto 3.3 x10*3/uL (2.0-8.3); Neutrophils Percent Auto 63.7 % (45-73); Platelet Count 150 X10*3/uL (160-400); Red Cell Distribution Width 15.4 % (11.0-16.0); White Blood Count 5.2 X10*3/uL (4.8-10.8)
[2024-06-09 08:06] LABS: Appearance Urine Clear; Color Urine Yellow; Glucose Urine UA Negative (Negative); Leukocyte Esterase Urine Negative (Negative); Nitrite Urine Negative (Negative); Urine Blood Negative (Negative); Urine Ketones Negative (Negative); Urine Protein Negative (Neg-Trace)
[2024-06-09 08:54] LABS: Alanine Aminotransferase 18 U/L (0-40); Albumin Level 3.8 g/dL (3.5-5.0); Alkaline Phosphatase 72 U/L (39-117); Anion Gap 12 (12-20); Aspartate Amino Transferase 26 U/L (5-37); Bilirubin Total 0.5 mg/dL (0.0-1.0); Blood Urea Nitrogen 12 mg/dL (9-16); Calcium 9.2 mg/dL (8.4-10.2); Carbon Dioxide 27 mmol/L (22-29); Chloride 101 mmol/L (96-108); Estimated Glomerular Filt Rate > 60; Glucose Random 128 mg/dL (60-115); Potassium 4.2 mmol/L (3.3-5.1); Sodium 136 mmol/L (135-145); Total Protein 6.4 g/dL (6.5-8.0)
== END 2024-06-09 07:46 | disposition home or self-care (01) ==
LOC: HO.LAB 07:45
PROVIDERS: PCP Internal Medicine; Visit Provider Internal Medicine
DX: C79.51 Secondary malignant neoplasm of bone (principal)
CPT/HCPCS: 36415; 80053; 81003; 85025

== ENCOUNTER 2024-06-23 07:38 | Outpatient (REF) | payer OTHER, SELFPAY ==
[2024-06-23 08:30] LABS: MANUAL DIFF FLAG NO
[2024-06-23 09:07] LABS: Basophils Percent Auto 0.4 % (0-2); Eosinophils Absolute Auto 0.1 X10*3/uL (0.0-0.4); Eosinophils Percent Auto 1.8 % (0-4); Hematocrit 39.8 % (42.0-52.0); Hemoglobin 13.5 g/dl (14.0-18.0); Imm Gran Abs Auto 0.02 X10*3/uL (0.00-0.03); Imm Gran Pct Auto 0.4 % (0.0-0.4); Lymphocytes Absolute Auto 1.1 X10*3/uL (1.2-4.9); Lymphocytes Percent Auto 19.5 % (20-40); Mean Corpuscular HGB Conc 33.9 g/dl (31.0-36.0); Mean Corpuscular Hemoglobin 30.8 pg (27.0-33.0); Mean Corpuscular Volume 90.9 fL (80.0-98.0); Mean Platelet Volume 11.1 fL (9.4-12.4); Monocytes Absolute Auto 0.8 X10*3/uL (0.1-1.2); Monocytes Percent Auto 14.5 % (2-11); Neutrophils Absolute Auto 3.5 x10*3/uL (2.0-8.3); Neutrophils Percent Auto 63.4 % (45-73); Platelet Count 130 X10*3/uL (160-400); Red Blood Count 4.38 X10*6/uL (4.60-5.80); Red Cell Distribution Width 14.8 % (11.0-16.0); White Blood Count 5.4 X10*3/uL (4.8-10.8)
[2024-06-23 09:35] LABS: Alanine Aminotransferase 21 U/L (0-40); Albumin Level 3.7 g/dL (3.5-5.0); Alkaline Phosphatase 76 U/L (39-117); Anion Gap 14 (12-20); Aspartate Amino Transferase 22 U/L (5-37); Bilirubin Total 0.3 mg/dL (0.0-1.0); Blood Urea Nitrogen 10 mg/dL (9-16); Calcium 9.1 mg/dL (8.4-10.2); Carbon Dioxide 25 mmol/L (22-29); Chloride 102 mmol/L (96-108); Estimated Glomerular Filt Rate > 60; Glucose Random 151 mg/dL (60-115); Potassium 3.9 mmol/L (3.3-5.1); Sodium 137 mmol/L (135-145); Total Protein 6.5 g/dL (6.5-8.0)
[2024-06-23 10:51] LABS: Appearance Urine Clear; Color Urine Yellow; Glucose Urine UA Negative (Negative); Leukocyte Esterase Urine Negative (Negative); Nitrite Urine Negative (Negative); PH 6.5 (5.0-9.0); Specific Gravity - Urine 1.015 (1.005-1.025); Urine Blood Negative (Negative); Urine Ketones Negative (Negative); Urine Protein Negative (Neg-Trace)
== END 2024-06-23 07:39 | disposition home or self-care (01) ==
LOC: HO.LAB 07:38
PROVIDERS: PCP Internal Medicine; Visit Provider Internal Medicine
DX: C18.9 Malignant neoplasm of colon, unspecified (principal); C78.00 Secondary malignant neoplasm of unspecified lung
CPT/HCPCS: 36415; 80053; 81003; 85025

== ENCOUNTER 2024-06-25 09:41 | Outpatient (REF) | payer OTHER, SELFPAY ==
--- NOTE | ~2024-06-25 | XR_ITS ---
EXAMINATION: XR HIP, LEFT CLINICAL INFORMATION: left hip pain, ?fracture COMPARISON: None available. TECHNIQUE: Two views of the left hip. 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 FINDINGS: No definite fracture, dislocation, or malalignment. Subtle sclerotic focus in the central femoral head region, most likely a bone island. Mild degenerative changes of the joint. Normal femoral head contour without evidence of AVN. There is an oval mixed lytic and sclerotic lesion abutting the inferior left SI joint, medial left ilium, highly suspicious for metastatic lesion. This measures approximately 3.5 x 2.6 cm in coronal plane. No additional suspicious bone lesions. Partial fusion of both SI joints is present suggesting ankylosing spondylitis. No soft tissue abnormalities. XR/XR hip LT w PEL1V IMPRESSION: 1. Mixed lytic and sclerotic metastatic lesion suspected in the left medial ilium, abutting the inferior SI joint, measuring approximately 2.5 x 2.6 cm in coronal plane. 2. No additional acute bony findings. 3. Mild degenerative arthritis left hip joint. Electronically signed by: Varun Gunter MD 06/25/2024 10:26 AM [facility]
== END 2024-06-25 09:42 | disposition home or self-care (01) ==
LOC: HO.XRAY 09:41
PROVIDERS: PCP Internal Medicine; Visit Provider Internal Medicine
DX: C79.51 Secondary malignant neoplasm of bone (principal); M25.552 Pain in left hip
CPT/HCPCS: 73502

== ENCOUNTER → 2024-06-25 09:50 | Outpatient (BNV) | payer OTHER, SELFPAY | PROVIDERS: PCP Internal Medicine; Visit Provider Radiology Diagnostic Radiology | DX: M25.552 Pain in left hip (principal) | CPT/HCPCS: 73502 ==

== ENCOUNTER 2024-07-15 19:58 | Inpatient (IN) | payer OTHER, SELFPAY ==
[2024-07-15] VITALS (7 sets, daily range): BP systolic 107–120; BP diastolic 64–69; PULSE 90–112; RESP 16–34; TEMP 37.2–39.2; O2SAT 68–94; BMI 24.3
--- NOTE | ~2024-07-15 | CT_ITS ---
CLINICAL HISTORY: fever, diarrhea CT abdomen and pelvis with contrast Comparison: CT of the abdomen and pelvis from 06/01/2024 Findings: Mild increase in fluid about the stomach, and duodenal pancreas may reflect pancreatitis. Gastroenteritis also considered. No small bowel obstruction. Fluid in the large intestine can be seen with diarrhea type illnesses and mild colitis. Imaged appendix is nondilated. Filtered contrast could obscure small stones in the renal collecting systems. No hydronephrosis. No definite change of the solid abdominal organs with likely steatotic change of the liver. Cholelithiasis are redemonstrated. Mild free fluid in the abdomen pelvis nonspecific with redemonstration of the marine mesentery. No significant change in mesenteric lymph nodes. No free intraperitoneal air. Prostate again indents upon the urinary bladder with mild worsening of the moderate wall thickening of the urinary bladder. Expansile sclerosis about left SI joint is not significantly changed in concerning for osseous metastatic disease. Likely combination of the small metastasis and hemangiomas of the imaged lumbar vertebrae without significant change from comparison. No sequela such as compression fracture. Again there is grade 2 anterolisthesis at L5-S1 with bilateral spondylolysis and mild spinal stenosis by CT. IMPRESSION: 1. Mild new fluid in the upper abdomen is nonspecific. Differential considerations include findings of gastroenteritis and findings of pancreatitis. Also mild fluid in the large intestine is nonspecific. Differential considerations include mild colitis. No small bowel obstruction. 2. No significant solid organ change or mraine mesentery change compared to 06/01/2024. 3. Redemonstration of multifocal osseous metastasis. 4. Cholelithiasis. 5. Moderate wall thickening of the distended urinary bladder. This document has been electronically signed by: Frank Gracia MD on 07/16/2024 01:23:29
--- NOTE | ~2024-07-15 | XR_ITS ---
CLINICAL HISTORY: fever, sob 1 view chest x-ray Comparison: Chest CT from 06/01/2025. Findings: Right-sided chest port is accessed. Mild worsening of the severe bilateral airspace disease. Differential considerations include potential combination of infectious/inflammatory etiologies, pulmonary edema, and carcinomatosis with CT findings of lymphangitic spread including multiple centrilobular nodules and septal thickening. Likely small pleural effusions. No pneumothorax. Mediastinum is essentially obscured. Degenerative changes include imaged shoulders with likely old avulsion of the proximal right humerus. No x-ray correlate for known left scapula metastasis. IMPRESSION: 1. Worsening bilateral airspace disease. Differential considerations include pneumonitis and edema superimposed on pulmonary carcinomatosis. 2. Right-sided chest port is in place. This document has been electronically signed by: Frank Gracia MD on 07/15/2024 22:04:02
--- NOTE | ~2024-07-15 | CT_ITS ---
CLINICAL HISTORY: SOB, hypoxia Exam: CT of the chest with contrast. Comparison: Chest x-ray from 04/15/2024 Findings: Redemonstration of the severe bilateral airspace disease concerning for pulmonary edema superimposed on diffuse carcinomatosis. Infectious inflammatory etiologies may be superimposed. Progression of pulmonary carcinomatosis is also considered. CT findings of poor cardiac output with the majority of the contrast pooling in the right heart. Small pericardial effusion present. Index right hilar lymph node measures 0.9 cm short axis. Mild vascular calcifications noted. Small pleural effusions, right greater than left. No pneumothorax. Please refer to separate report for included imaged abdomen. Expansion of the left inferior scapula osseous metastasis measures 1.1 cm thickness. Other bone lesion not excluded by imaging. Degenerative changes include the imaged shoulders and imaged spine. Mild vertebral height losses appear old chronic. IMPRESSION: 1. Severe airspace disease with known pulmonary carcinomatosis. Differential considerations include progression of the disease. Superimposed edema and pneumonitis are also considered. 2. Left scapula osseous metastasis. This document has been electronically signed by: Frank Gracia MD on 07/16/2024 01:17:49
--- NOTE | 2024-07-15 20:10 | ECG_ITS ---
Test Reason : DYSPNEA Blood Pressure : / mmHG Vent. Rate : 105 BPM Atrial Rate : 105 BPM P-R Int : 168 ms QRS Dur : 082 ms QT Int : 346 ms P-R-T Axes : 021 -13 010 degrees QTc Int : 457 ms Sinus tachycardia Otherwise normal ECG When compared with ECG of 15-DEC-2023 10:07, Nonspecific T wave abnormality, worse in Inferior leads Referred By: Nia Muñiz Electronically Signed By:BOWEN HAWKINS MD
[2024-07-15 20:54] LABS: Basophils Absolute Auto 0.1 X10*3/uL (0.0-0.2); Basophils Percent Auto 0.3 % (0-2); Eosinophils Percent Auto 0.1 % (0-4); Hematocrit 34.1 % (42.0-52.0); Imm Gran Abs Auto 0.11 X10*3/uL (0.00-0.03); Imm Gran Pct Auto 0.7 % (0.0-0.4); Lymphocytes Absolute Auto 0.4 X10*3/uL (1.2-4.9); Lymphocytes Percent Auto 2.3 % (20-40); MANUAL DIFF FLAG SCAN; Mean Corpuscular HGB Conc 35.2 g/dl (31.0-36.0); Mean Corpuscular Hemoglobin 30.2 pg (27.0-33.0); Mean Corpuscular Volume 85.9 fL (80.0-98.0); Mean Platelet Volume 10.9 fL (9.4-12.4); Monocytes Percent Auto 5.9 % (2-11); Neutrophils Absolute Auto 15.3 x10*3/uL (2.0-8.3); Neutrophils Percent Auto 90.7 % (45-73); Platelet Count 214 X10*3/uL (160-400); Red Blood Count 3.97 X10*6/uL (4.60-5.80); Red Cell Distribution Width 13.6 % (11.0-16.0); SCAN SMEAR FLAG 1; White Blood Count 16.9 X10*3/uL (4.8-10.8)
[2024-07-15 20:57] LABS: VBG Base Excess 2.5 mmol/L; VBG HCO3 24 mmol/L (22-26); VBG pCO2 31 mmHg; VBG pO2 87 mmHg
[2024-07-15 20:58] LABS: Venous Blood Gas Refer to POC result
[2024-07-15 21:00] LABS: INTERNATIONAL NORM RATIO 1.4 (0.9-1.1); Prothrombin Time 16.5 SEC (10.9-12.4)
[2024-07-15 21:12] LABS: Alanine Aminotransferase 25 U/L (0-40); Albumin Level 3.1 g/dL (3.5-5.0); Alkaline Phosphatase 145 U/L (39-117); Anion Gap 13 (12-20); Aspartate Amino Transferase 39 U/L (5-37); Bilirubin Total 0.5 mg/dL (0.0-1.0); Blood Urea Nitrogen 17 mg/dL (9-16); Carbon Dioxide 21 mmol/L (22-29); Chloride 98 mmol/L (96-108); Creatinine Clr Calc Pharmacy 101.4; Estimated Glomerular Filt Rate > 60; Glucose Random 198 mg/dL (60-115); Lipase 16 U/L (8-78); Magnesium 2.1 mg/dL (1.6-2.6); Potassium 4.1 mmol/L (3.3-5.1); Sodium 128 mmol/L (135-145); Total Protein 6.3 g/dL (6.5-8.0)
[2024-07-15 21:13] LABS: SLIDE REVIEW VERIFIED
[2024-07-15 21:17] LABS: B Type Natriuretic Peptide 33 pg/mL (<100)
[2024-07-15 21:23] LABS: Lactic Acid 1.7 mmol/L (0.5-2.0)
--- NOTE | 2024-07-15 21:26 | ED.GENADULT ---
HPI - General Adult General Chief complaint: General Medical Stated complaint: diff breathing, lung CA patient Time Seen by Provider: 07/15/24 21:06 Source: patient and family Mode of arrival: ambulatory Limitations: no limitations History of Present Illness ED Provider: Dr. Lesa Alaniz HPI narrative: Patient comes to the emergency room complaining of diarrhea, body aches, fever and shortness of breath. Patient states that last week he was started on a new chemotherapy for colon cancer with metastases to the lungs. Which he did not respond well. Previously, patient was on chemo with FOLFOX/Avastin. Last week, patient received his 1st round with a new chemotherapy, combination of Adagrasib with cetuximab. Patient states that since he started this new chemo, the diarrhea started and has gradually been getting worse. Also, patient noted that he is more short of breath than usual. Patient denies any recent coughing. Patient's reports that at home patient had a fever of 101.6. Related Data Home Medications ?Medication ?Instructions ?Recorded ?Confirmed loratadine 10 mg tablet 10 mg PO DAILY 12/23/23 05/28/24 dextromethorphan polistirex 30 10 ml PO Q12H PRN Cough 01/24/24 05/28/24 mg/5 mL oral susp ext.release 12hr (Delsym 12 hour) Previous Rx's ?Medication ?Instructions ?Recorded albuterol sulfate 90 mcg/actuation 2 puff inhalation Q4-6H PRN 11/10/23 aerosol inhaler shortness of breath or wheezing #8.5 grams fluticasone furoate 200 1 inh inhalation DAILY #1 inhaler 12/23/23 mcg-vilanterol 25 mcg/dose inhalation powder (Breo Ellipta) ondansetron 8 mg disintegrating 8 mg PO Q8H PRN Nausea And 01/16/24 tablet Vomiting #30 tabs amlodipine 10 mg tablet 10 mg PO DAILY #90 tabs 03/20/24 adagrasib 200 mg tablet 600 mg (3 x 200 mg) PO BID #180 06/25/24 tabs apixaban 5 mg (74 tabs) tablets in 5 mg PO BID #120 ea 06/25/24 a dose pack (Eliquis DVT-PE Treat 30D Start) loratadine 10 mg capsule 10 mg PO DAILY #30 caps 07/12/24 triamcinolone acetonide 0.1 % 1 appl topical DAILY #45 grams 07/12/24 topical cream Allergies Allergy/AdvReac Type Severity Reaction Status Date / Time shellfish derived Allergy Unknown Verified 07/15/24 20:07 Review of Systems Review of Systems: Constitutional : Ongoing weight loss, fatigue, generalized malaise, complaining of fever and chills ENT/Mouth : No Hearing loss, No Ear Pain, No Nasal Congestion, No Sinus Pain, No Hoarseness, No sore throat, No Rhinorrhea, No Swallowing Difficulty Eyes: No Eye Pain, No Swelling, No Redness, No Foreign Body, No Discharge, No Vision Changes Cardiovascular : No Chest Pain, complaining of shortness of breath Respiratory : No Cough, No Sputum, No Wheezing, No Smoke Exposure, complaining of shortness of breath Gastrointestinal : No Nausea, No Vomiting, complaining of diarrhea and abdominal cramping No Constipation, No abdominal Pain, No Hematochezia, No Melena Genitourinary : no irregular bleeding, No Dysuria, No Urinary Frequency, No Hematuria, No Urinary Incontinence, No Urgency, No Flank Pain, No Urinary Flow Changes, No Hesitancy Musculoskeletal : No joint pain, No Myalgias, No Joint Swelling Skin : No Skin Lesions, No rash Neuro : No Weakness, No Numbness, No Paresthesias, No Loss of Consciousness, No Dizziness, No Headache Psych : No Anxiety/Panic, No Depression, No SI/HI/AH/VH, No Social Issues, Heme/Lymph: No Bruising, No Bleeding,No Lymphadenopathy Endocrine : No Polyuria, No Polydipsia, No Temperature Intolerance [facility] Past Medical History Medical History Asthma Pulmonary nodules/lesions, multiple Surgical History History of lung biopsy (~12/2023) Social History Social History Household Members: Spouse Patient Tobacco Use Status: Never used Tobacco Smoked in Last 30 Days: No Use of substances other than those prescribed or required for medical reasons: No Advance Directives: Yes Advance Directives on File: Yes Advance Directives Date on File: 01/06/24 Do you have a plan to hurt others: No Plan service: No Gender identity: Male Physical Exam ED Vital Signs: Vital Signs - 24 hr 07/15/24 20:00 07/15/24 20:04 07/15/24 20:17 Temperature 102.5 F H 100.8 F H Pulse Rate 112 H 107 H Respiratory Rate 16 34 H Blood Pressure 113/65 120/69 Pulse Oximetry 93 71 L 68 L Oxygen Delivery Method Nasal Cannula Room Air Room Air Oxygen Flow Rate 6 07/15/24 21:40 07/15/24 22:15 Temperature 99.0 F Pulse Rate 90 Respiratory Rate 20 25 H Blood Pressure 107/64 Pulse Oximetry 92 Oxygen Delivery Method High Flow Nasal Cannula Oxygen Flow Rate BMI result Body Mass Index 24.3 Const Other: Appearance: Alert. Oriented X3. No acute distress. Eyes: Pupils equal, round and reactive to light. ENT: Pharynx normal. Neck: Normal inspection. Neck supple. No lymph nodes noted. No crepitus CVS: Normal heart rate and rhythm. Pulses normal. Normal S1 and S2 Respiratory: No respiratory distress. Breath sounds normal. No Wheezing. No rales Abdomen: Decreased breath sounds bilaterally, rales, no crackles, minimal wheezing, currently saturating 86% on 6 L nasal cannula Skin: Skin warm and dry. Normal skin color. Normal skin turgor. Extremities: No lower extremity edema. No Lacerations. No Rash Neuro: Oriented X 3. No motor deficit. No sensory deficit. Moving all extremities. No slurred speech. CN 2 through 12 grossly intact Psych: calm, cooperative, normal affect Course Course Course Narrative: Patient's oxygen saturations 86% on 6 L of nasal cannula. Patient states that he does not feel short of breath. On arrival, patient was saturating in the high 60s/low 70s on room air. Patient is not O2 dependent. Patient was switched to high-flow, current oxygen saturation in the low 90s. Patient was empirically giving IV fluids and cefepime. Patient has a fever of 102.5 Medications Administered Discontinued Medications Generic Name Dose Route Start Last Admin Trade Name Freq PRN Reason Stop Dose Admin Cefepime HCl 2 gm in 50 mls @ 100 mls/hr 07/15/24 21:19 07/15/24 22:01 Maxipime IV 07/15/24 21:48 Infused ONCE ONE Infusion Sodium Chloride 2,177.25 mls @ 2,177.25 mls/hr 07/15/24 21:19 07/15/24 21:29 Ns 30 ml/kg infuse over 1 hr (2177.25 ml) 07/15/24 22:18 2,177.25 mls/hr IV Administration .Q1H STA Loperamide HCl 4 mg 07/15/24 21:58 07/15/24 22:16 Loperamide Hcl 2 Mg Capsule PO 07/15/24 21:59 4 mg ONCE ONE Administration Medical Decision Making Medical Decision Making [facility] Narrative: My interpretation of labs: Patient's white blood cell count is 16.9. Lactic acid 1.7. Sodium 128 which is new for the patient. Likely the cause it patient is feeling very fatigued along with all his other comorbidities. Patient has been having a large amount of diarrhea. Magnesium normal. Serology negative for flu RSV and COVID. BNP 33 Chest x-ray difficult to interpret due to a very large burden of pulmonary tumors. Likely pneumonia, pulmonary edema unlikely I discussed the patient with Dr. Cid, we will repeat patient's chest CT and abdominal CT, patient being admitted Patient has not had any episodes of hypotension, no longer febrile or tachycardic. Differential Diagnosis Differential Diagnoses: The differential diagnosis associated with the presentation includes (Febrile neutropenia, pneumonia, UTI, gastroenteritis, hyponatremia) Admission/Observation Consideration of admission/observation: Escalation of care including admission/observation considered Consult Healthcare Provider Management of the patient was discussed with: Hospitalist Lab Data [facility] Lab Attestation statement: I reviewed the patient's lab results. 07/15/24 20:45 07/15/24 20:45 Labs: Lab Results 07/15/24 07/15/24 07/15/24 Range/Units 20:44 20:45 20:46 WBC 16.9 H (4.8-10.8) X10*3/uL RBC 3.97 L (4.60-5.80) X10*6/uL Hgb 12.0 L (14.0-18.0) g/dl Hct 34.1 L D (42.0-52.0) % MCV 85.9 (80.0-98.0) fL MCH 30.2 (27.0-33.0) pg MCHC 35.2 (31.0-36.0) g/dl RDW 13.6 (11.0-16.0) % Plt Count 214 (160-400) X10*3/uL MPV 10.9 (9.4-12.4) fL Immature Gran % (Auto) 0.7 H (0.0-0.4) % Neut % (Auto) 90.7 H (45-73) % Lymph % (Auto) 2.3 L (20-40) % Tillman % (Auto) 5.9 (2-11) % Eos % (Auto) 0.1 (0-4) % Baso % (Auto) 0.3 (0-2) % Lymph # (Auto) 0.4 L (1.2-4.9) X10*3/uL Tillman # (Auto) 1.0 (0.1-1.2) X10*3/uL Eos # (Auto) 0.0 (0.0-0.4) X10*3/uL Baso # (Auto) 0.1 (0.0-0.2) X10*3/uL Abs Immat Gran (auto) 0.11 H (0.00-0.03) X10*3/uL Absolute Neuts (auto) 15.3 H (2.0-8.3) x10*3/uL Absolute Nucleated RBC 0.000 (0.0-0.012) X10*3/uL Nucleated RBC % (auto) 0.0 (0.0-0.2) /100WBC Smear Tech's Comments VERIFIED PT 16.5 H (10.9-12.4) SEC INR 1.4 H (0.9-1.1) VBG pH (7.32-7.43) VBG pCO2 mmHg VBG pO2 mmHg VBG HCO3 (22-26) mmol/L VBG O2 Saturation % VBG Base Excess mmol/L Sodium 128 L (135-145) mmol/L Potassium 4.1 (3.3-5.1) mmol/L Chloride 98 (96-108) mmol/L Carbon Dioxide 21 L (22-29) mmol/L Anion Gap 13 (12-20) BUN 17 H (9-16) mg/dL Creatinine 0.74 (0.5-1.4) mg/dL Estim Creat Clear Calc 101.4 Estimated GFR > 60 Random Glucose 198 H (60-115) mg/dL Lactic Acid 1.7 (0.5-2.0) mmol/L Calcium 9.0 (8.4-10.2) mg/dL Magnesium 2.1 (1.6-2.6) mg/dL Total Bilirubin 0.5 (0.0-1.0) mg/dL AST 39 H (5-37) U/L ALT 25 (0-40) U/L Alkaline Phosphatase 145 H (39-117) U/L Total Creatine Kinase 36 L (38-174) U/L B-Natriuretic Peptide 33 (<100) pg/mL Total Protein 6.3 L (6.5-8.0) g/dL Albumin 3.1 L (3.5-5.0) g/dL Lipase 16 (8-78) U/L Influenza Type A (PCR) NEGATIVE (Negative) Influenza Type B (PCR) NEGATIVE (Negative) RSV RNA Qual (PCR) NEGATIVE (Negative) SARS-CoV-2 RNA (RT-PCR) NEGATIVE (Negative) 07/15/24 Range/Units 20:51 WBC (4.8-10.8) X10*3/uL RBC (4.60-5.80) X10*6/uL Hgb (14.0-18.0) g/dl Hct (42.0-52.0) % MCV (80.0-98.0) fL MCH (27.0-33.0) pg MCHC (31.0-36.0) g/dl RDW (11.0-16.0) % Plt Count (160-400) X10*3/uL MPV (9.4-12.4) fL Immature Gran % (Auto) (0.0-0.4) % Neut % (Auto) (45-73) % Lymph % (Auto) (20-40) % Tillman % (Auto) (2-11) % Eos % (Auto) (0-4) % Baso % (Auto) (0-2) % Lymph # (Auto) (1.2-4.9) X10*3/uL Tillman # (Auto) (0.1-1.2) X10*3/uL Eos # (Auto) (0.0-0.4) X10*3/uL Baso # (Auto) (0.0-0.2) X10*3/uL Abs Immat Gran (auto) (0.00-0.03) X10*3/uL Absolute Neuts (auto) (2.0-8.3) x10*3/uL Absolute Nucleated RBC (0.0-0.012) X10*3/uL Nucleated RBC % (auto) (0.0-0.2) /100WBC Smear Tech's Comments PT (10.9-12.4) SEC INR (0.9-1.1) VBG pH 7.50 H (7.32-7.43) VBG pCO2 31 mmHg VBG pO2 87 mmHg VBG HCO3 24 (22-26) mmol/L VBG O2 Saturation 98.0 % VBG Base Excess 2.5 mmol/L Sodium (135-145) mmol/L Potassium (3.3-5.1) mmol/L Chloride (96-108) mmol/L Carbon Dioxide (22-29) mmol/L Anion Gap (12-20) BUN (9-16) mg/dL Creatinine (0.5-1.4) mg/dL Estim Creat Clear Calc Estimated GFR Random Glucose (60-115) mg/dL Lactic Acid (0.5-2.0) mmol/L Calcium (8.4-10.2) mg/dL Magnesium (1.6-2.6) mg/dL Total Bilirubin (0.0-1.0) mg/dL AST (5-37) U/L ALT (0-40) U/L Alkaline Phosphatase (39-117) U/L Total Creatine Kinase (38-174) U/L B-Natriuretic Peptide (<100) pg/mL Total Protein (6.5-8.0) g/dL Albumin (3.5-5.0) g/dL Lipase (8-78) U/L Influenza Type A (PCR) (Negative) Influenza Type B (PCR) (Negative) RSV RNA Qual (PCR) (Negative) SARS-CoV-2 RNA (RT-PCR) (Negative) Independent Interpretation I performed an independent interpretation of an: Plain X-Ray Radiology Impression Discussion of test interpretation with radiology: I have reviewed the radiologist's reading. Radiologist Impression: Right-sided chest port is accessed. Mild worsening of the severe bilateral airspace disease. Differential considerations include potential combination of infectious/inflammatory etiologies, pulmonary edema, and carcinomatosis with CT findings of lymphangitic spread including multiple centrilobular nodules and septal thickening. Likely small pleural effusions. No pneumothorax. Mediastinum is essentially obscured. Degenerative changes include imaged shoulders with likely old avulsion of the proximal right humerus. No x-ray correlate for known left scapula metastasis. IMPRESSION: 1. Worsening bilateral airspace disease. Differential considerations include pneumonitis and edema superimposed on pulmonary carcinomatosis. 2. Right-sided chest port is in place. Independent Historian Clinical information obtained from an independent historian. History obtained from or confirmed by: Spouse Critical Care Time Critical Care Time Critical Care Time: Yes Total Critical Care Time: 60 Attestation: I have personally provided critical care time. Time includes review of lab data, radiology results, discussion with consultants, and monitoring for potential decompensation. Intervention performed as documented. Discharge Plan Discharge Clinical Impression: Pneumonia, Hyponatremia Patient Disposition: Admitted As Inpatient Prescriptions: No Action ondansetron 8 mg Tablet,Disintegrating 8 mg PO Q8H PRN (Reason: Nausea And Vomiting) Qty: 30 3RF dextromethorphan polistirex [Delsym 12 hour] 30 mg/5 mL Suspension,Extended Rel 12 Hr 10 ml PO Q12H PRN (Reason: Cough) amlodipine 10 mg Tablet 10 mg PO DAILY Qty: 90 3RF Eliquis DVT-PE Treat 30D Start 5 mg (74 tabs) Tablets,Dose Pack 5 mg PO BID Qty: 120 3RF Rx Instructions: take 10 mg bid for 7 days followed by 5 mg bid adagrasib 200 mg Tablet 600 mg PO BID Qty: 180 3RF loratadine 10 mg Capsule 10 mg PO DAILY Qty: 30 0RF triamcinolone acetonide 0.1 % Cream 1 appl TOPICAL DAILY Qty: 45 0RF albuterol sulfate 90 mcg/actuation HFA aerosol inhaler 2 puff inhalation Q4-6H PRN (Reason: shortness of breath or wheezing) Qty: 8.5 0RF loratadine 10 mg tablet 10 mg PO DAILY fluticasone furoate-vilanterol [Breo Ellipta] 200-25 mcg/dose blister with device 1 inh inhalation DAILY Qty: 1 6RF Print Language: Citizen Of [place]
[2024-07-15] MEDS: 0.9 % Sodium Chloride 2,177.25 ML 2177.25 ML IV (21:29)
[2024-07-15 21:30] LABS: Influenza A PCR NEGATIVE (Negative); Influenza B PCR NEGATIVE (Negative); Resp Syncy Virus RNA Qual PCR NEGATIVE (Negative); SARS COV2 PCR INHOUSE NEGATIVE (Negative)
[2024-07-15] MEDS: cefEPime HCl/D5W 2 GM/50 ML PIGGYBACK IV (21:30)
--- NOTE | 2024-07-15 21:46 | PC.NURSE ---
Patient placed on high flow O2 by RT, patient saturating 93-95%.
[2024-07-15] MEDS: Loperamide HCl 2 MG CAPSULE 4 MG PO (22:16)
[2024-07-15 23:26] LABS: Appearance Urine Clear; Color Urine Yellow; Glucose Urine UA Negative (Negative); Leukocyte Esterase Urine Negative (Negative); Nitrite Urine Negative (Negative); Specific Gravity - Urine 1.015 (1.005-1.025); UMIC TRIGGER UACC YES; Urine Blood Negative (Negative); Urine Ketones Negative (Negative); Urine Protein 30 (1+) mg/dL (Neg-Trace)
--- NOTE | 2024-07-15 23:27 | PC.RT ---
Pt taken off HF and placed on NRB for CT scan. SATs 94%.
[2024-07-15 23:28] LABS: Bacteria Urine None Seen (None Seen); Hyaline Casts Urine 0-2 /LPF (0-2); RBC Urine 0-2 /HPF (0-2); WBC Urine 0-5 /HPF (0-5)
[2024-07-16] VITALS (21 sets, daily range): BP systolic 104–124; BP diastolic 64–80; PULSE 81–97; RESP 15–31; TEMP 36.6–37.7; O2SAT 89–100
--- NOTE | 2024-07-16 00:16 | PC.NURSE ---
Patient id back to his room from CT, patient placed back on high flow NC, sat 90-94%.
[2024-07-16] MEDS: iohexoL 350 MG/ML 100 ML INFUS..BTL 85 ML IV (00:48)
--- NOTE | 2024-07-16 01:16 | PC.NURSE ---
Patient had episode where O2 dropped with good wave formation to 77% on Hiflow, patient instructed to try to breathe in through nose to help. Resp and Dr Alaniz consulted d/t pt O2 coming back up plan is episode continues to place simple face mask over hiflow to ensure oxygenation
--- NOTE | 2024-07-16 01:31 | PC.NURSE ---
O2 85 % simple oxy mask placed on patient a this time O2 94%
--- NOTE | 2024-07-16 02:25 | PM.IMHP ---
History of Present Illness Date of Service: 07/16/24 Attending physician on admission: Clair Cid Chief Complaint: weakness, fever, SOB Patient is a 59-year-old male with a past medical history significant for metastatic colon cancer who presented to the ED with diarrhea, body aches, fever and shortness of breath. He reports that he was started on a new chemotherapy agent (Adagrasib with cetuximab) for his metastatic colon cancer to the lungs and has been progressively feeling worse. Was told that diarrhea is a very common side effect with this new agent and has been taking Imodium as needed. He has diarrhea about 2 times a day without any blood stool. He also has associated nausea but no vomiting. His most bothersome symptom is the shortness of breath and weakness. He does have a chronic cough and reports that this is nonproductive and has not changed from his baseline, however he is requiring oxygen which she does not usually use. He reports any recent sick contacts. His highest temperature measured at home was 101.6. His oncologist is Dr Cox. Review of Systems Constitutional: Constitutional: Denies body ache(s), Denies chills, Reports fatigue, Reports fever(s) and Denies headache(s) Eyes: Eyes: Denies change in vision ENT: Denies headache(s), Denies nasal congestion, Denies nasal discharge and Denies sore throat Cardiovascular: Cardiovascular: Denies chest pain, Denies rapid heart rate, Denies lightheadedness and Reports dyspnea Respiratory: Respiratory: Denies chest congestion, Reports cough (chronic), Reports dyspnea and Denies wheezing Gastrointestinal: Gastrointestinal: Denies melena, Denies hematochezia, Denies coffee ground emesis, Denies constipation, Reports diarrhea, Reports nausea and Denies vomiting Genitourinary: Genitourinary: Denies dysuria, Denies urinary frequency and Denies urinary incontinence Musculoskeletal: Musculoskeletal: Denies myalgias Integumentary/Breasts: Skin/Breast: Reports rash (on chest since starting new chemo regimen, evaluated by Dr Cox already) Neurologic: Denies confusion and Denies headache(s) Psychiatric: Psychiatric: Denies confusion Endocrine: Endocrine: Reports fatigue Hematologic/Lymphatic: Hematologic/Lymphatic: Denies easy bleeding Allergic/Immunologic: Allergic/Immunologic: Denies wheezing [facility] Medical History (Updated 07/16/24 @ 02:39 by Nette Ruiz PA-C) Colon cancer metastasized to lung Asthma Pulmonary nodules/lesions, multiple Surgical History History of lung biopsy (~12/2023) Social History Household Members: Spouse Patient Tobacco Use Status: Never used Tobacco Smoked in Last 30 Days: No Use of substances other than those prescribed or required for medical reasons: No Advance Directives: Yes Advance Directives on File: Yes Advance Directives Date on File: 01/06/24 Do you have a plan to hurt others: No Plan service: No Gender identity: Male Narrative: no smoking, etoh or drug use. Meds Allergies Allergy/AdvReac Type Severity Reaction Status Date / Time shellfish derived Allergy Unknown Verified 07/15/24 20:07 onion AdvReac Unknown Verified 07/16/24 01:05 Active Medications: Current Medications Acetaminophen (Acetaminophen 325 Mg Tablet) 650 mg PO Q6H PRN PRN Reason: Pain, Mild 1-3,fever,headache Calcium Carbonate (Calcium Carbonate 750 Mg Tab.Chew) 750 mg PO Q4H PRN PRN Reason: Heartburn Levofloxacin (Levaquin) 750 mg in 150 mls @ 100 mls/hr IV Q24H [place] Magnesium Hydroxide (Milk Of Magnesia 30 Ml Oral.Susp) 30 ml PO DAILY PRN PRN Reason: Constipation Melatonin (Melatonin 3 Mg Tablet) 6 mg PO BEDTIME PRN PRN Reason: Insomnia Ondansetron HCl (Ondansetron Hcl 4 Mg/2 Ml Vial) 4 mg IVPUSH Q8H PRN PRN Reason: Nausea and Vomiting Sodium Chloride (0.9 % Sodium Chloride Flush 3 Ml Syringe) 3 ml IVFLUSH QSHIFT [facility] Home Medications ?Medication ?Instructions ?Recorded ?Confirmed ?Last Taken ?Type loratadine 10 mg tablet 10 mg PO DAILY 12/23/23 05/28/24 Unknown History dextromethorphan polistirex 30 10 ml PO Q12H PRN Cough 01/24/24 05/28/24 Unknown History mg/5 mL oral susp ext.release 12hr (Delsym 12 hour) Physical Exam Vital Signs and Narrative: Vital Signs: Last Vital Signs Temp 98.2 F 07/16/24 01:32 Pulse 87 07/16/24 01:32 Resp 28 H 07/16/24 01:32 BP 116/80 07/16/24 01:32 Pulse Ox 95 07/16/24 01:32 O2 Del Method High Flow Nasal C keeley, Simple Mas k 07/16/24 01:32 O2 Flow Rate 6 07/15/24 20:00 BMI result Body Mass Index 24.3 General: AOx3, no acute distress, on high flow O2, no conversational dyspnea Resp: wheezing RUL field, diminished throughout CVS: S1, S2, RRR GI: +BS, NT, no distention Skin: Warm, dry Neuro: Cranial nerves II-XII grossly intact bilaterally. Motor grossly intact bilaterally Extremities: No LE edema Psych: Appropriate affect Const: General: No confusion Orientation/consciousness: No confusion Neuro: General: No confusion Results Labs 07/15/24 20:45 07/15/24 20:45 Labs: Laboratory Results - last 24 hr 07/15/24 07/15/24 07/15/24 20:44 20:45 20:46 MCV 85.9 MCH 30.2 MCHC 35.2 RDW 13.6 Plt Count 214 MPV 10.9 Immature Gran % (Auto) 0.7 H Neut % (Auto) 90.7 H Lymph % (Auto) 2.3 L Clinch % (Auto) 5.9 Eos % (Auto) 0.1 Baso % (Auto) 0.3 Lymph # (Auto) 0.4 L Clinch # (Auto) 1.0 Eos # (Auto) 0.0 Baso # (Auto) 0.1 Abs Immat Gran (auto) 0.11 H Absolute Neuts (auto) 15.3 H Absolute Nucleated RBC 0.000 Nucleated RBC % (auto) 0.0 Smear Tech's Comments VERIFIED PT 16.5 H INR 1.4 H VBG pH VBG pCO2 VBG pO2 VBG HCO3 VBG O2 Saturation VBG Base Excess Anion Gap 13 Estim Creat Clear Calc 101.4 Estimated GFR > 60 Random Glucose 198 H Lactic Acid 1.7 Calcium 9.0 Magnesium 2.1 Total Bilirubin 0.5 AST 39 H ALT 25 Alkaline Phosphatase 145 H Total Creatine Kinase 36 L B-Natriuretic Peptide 33 Total Protein 6.3 L Albumin 3.1 L Lipase 16 Urine Color Urine Appearance Urine pH Ur Specific [place] Urine Protein Urine Glucose (UA) Urine Ketones Urine Blood Urine Nitrite Ur Leukocyte Esterase Urine RBC Urine WBC Ur Squamous Epith Cells Urine Bacteria Hyaline Casts Influenza Type A (PCR) NEGATIVE Influenza Type B (PCR) NEGATIVE RSV RNA Qual (PCR) NEGATIVE SARS-CoV-2 RNA (RT-PCR) NEGATIVE 07/15/24 07/15/24 20:51 23:20 MCV MCH MCHC RDW Plt Count MPV Immature Gran % (Auto) Neut % (Auto) Lymph % (Auto) Clinch % (Auto) Eos % (Auto) Baso % (Auto) Lymph # (Auto) Clinch # (Auto) Eos # (Auto) Baso # (Auto) Abs Immat Gran (auto) Absolute Neuts (auto) Absolute Nucleated RBC Nucleated RBC % (auto) Smear Tech's Comments PT INR VBG pH 7.50 H VBG pCO2 31 VBG pO2 87 VBG HCO3 24 VBG O2 Saturation 98.0 VBG Base Excess 2.5 Anion Gap Estim Creat Clear Calc Estimated GFR Random Glucose Lactic Acid Calcium Magnesium Total Bilirubin AST ALT Alkaline Phosphatase Total Creatine Kinase B-Natriuretic Peptide Total Protein Albumin Lipase Urine Color Yellow Urine Appearance Clear Urine pH 6.0 Ur Specific [place] 1.015 Urine Protein 30 (1+) H Urine Glucose (UA) Negative Urine Ketones Negative Urine Blood Negative Urine Nitrite Negative Ur Leukocyte Esterase Negative Urine RBC 0-2 Urine WBC 0-5 Ur Squamous Epith Cells 6-10 Urine Bacteria None Seen Hyaline Casts 0-2 Influenza Type A (PCR) Influenza Type B (PCR) RSV RNA Qual (PCR) SARS-CoV-2 RNA (RT-PCR) Assessment and Plan (1) Sepsis: Status: Acute (2) Acute respiratory failure with hypoxia: Status: Acute (3) Pneumonia: Status: Acute (4) Colon cancer metastasized to lung: Status: Chronic (5) Diarrhea: Status: Acute (6) Hyponatremia: Status: Acute Plan Patient is a 59-year-old male with a past medical history significant for metastatic colon cancer who presented to the ED with diarrhea, body aches, fever and shortness of breath. Chest CT significant for severe airspace disease with known pulmonary carcinomatosis with progression of the disease and superimposed pneumonitis versus edema considered. Sepsis and acute respiratory failure with hypoxia secondary superimposed infection on pulmonary carcinomatosis - WBC 16.9, lactic 1.7, temperature max of 102.5, tachypneic and tachycardic, blood cultures x2 pending, not severe sepsis - COVID/flu/RSV negative - BNP normal - chest CT with severe airspace disease with known pulmonary carcinomatosis with progression of the disease and superimposed pneumonitis versus edema - abdominopelvic CT with possible mild colitis, likely related to chemotherapy agents - started on cefepime and azithromycin in ED, we will change to Levaquin for Pseudomonas coverage - albuterol as needed - currently on high-flow oxygen, titrate as needed - monitor CBC and BMP Diarrhea, likely secondary to chemotherapy agent - stool studies ordered including C diff and GI panel - continue loperamide as needed Hyponatremia, secondary to diarrhea - given sepsis bolus of NS in ED - monitor BMP Full code VTE prophylaxis: Eliquis Patient with sepsis and acute respiratory failure with hypoxia secondary to superimposed infection on pulmonary carcinomatosis and new O2 requirement, requiring admission for at least 2 midnight stay for IV antibiotics and monitoring. Quality Stroke Does the patient have a stroke diagnosis?: No VTE Prior VTE?: No VTE Risk Level:: Medical - moderate - high VTE Device Contraindication: Treatment Not Indicated VTE Drug Contraindication: N/A - Med Ordered
[2024-07-16] MEDS: levoFLOXacin/D5W 750 MG/150 ML PIGGYBACK 100 MG IV (02:56)
[2024-07-16 04:43] LABS: Basophils Percent Auto 0.3 % (0-2); Eosinophils Percent Auto 0.2 % (0-4); Hematocrit 32.5 % (42.0-52.0); Hemoglobin 11.3 g/dl (14.0-18.0); Imm Gran Abs Auto 0.05 X10*3/uL (0.00-0.03); Imm Gran Pct Auto 0.4 % (0.0-0.4); Lymphocytes Absolute Auto 0.6 X10*3/uL (1.2-4.9); Lymphocytes Percent Auto 4.7 % (20-40); MANUAL DIFF FLAG NO; Mean Corpuscular HGB Conc 34.8 g/dl (31.0-36.0); Mean Corpuscular Hemoglobin 30.1 pg (27.0-33.0); Mean Corpuscular Volume 86.7 fL (80.0-98.0); Mean Platelet Volume 10.5 fL (9.4-12.4); Monocytes Absolute Auto 1.2 X10*3/uL (0.1-1.2); Monocytes Percent Auto 9.3 % (2-11); Neutrophils Absolute Auto 10.6 x10*3/uL (2.0-8.3); Neutrophils Percent Auto 85.1 % (45-73); Platelet Count 166 X10*3/uL (160-400); Red Blood Count 3.75 X10*6/uL (4.60-5.80); Red Cell Distribution Width 13.8 % (11.0-16.0); White Blood Count 12.4 X10*3/uL (4.8-10.8)
[2024-07-16 05:04] LABS: Anion Gap 10 (12-20); Blood Urea Nitrogen 13 mg/dL (9-16); Calcium 7.9 mg/dL (8.4-10.2); Carbon Dioxide 22 mmol/L (22-29); Chloride 105 mmol/L (96-108); Creatinine Clr Calc Pharmacy 129.3; Estimated Glomerular Filt Rate > 60; Glucose Random 136 mg/dL (60-115); Potassium 4.1 mmol/L (3.3-5.1); Sodium 133 mmol/L (135-145)
--- NOTE | 2024-07-16 08:31 | PHA.MEDREC ---
Pharmacy Consult ? Medication Reconciliation Pharmacy has completed the medication reconciliation. Spoke with patient at bedside to confirm medications. Notes from Dr. Cox show patient was switched to Elquis 2.5mg BID due to drug interaction with new chemo medication [Krazati (adagrasib)]. Pt also confirmed he is now cutting his current tablet in half. Breo was also stopped due to new chemo medication. Dr. Cox told pt not take Krazati today, he last took this yesterday.
[2024-07-16] MEDS: cefEPime HCl/D5W 2 GM/50 ML PIGGYBACK IV ×2 (08:46→16:17)
[2024-07-16] MEDS: 0.9 % Sodium Chloride Flush 3 ML SYRINGE IVFLUSH ×3 (08:46→20:30)
--- NOTE | 2024-07-16 09:16 | P.EN_ITS ---
Event Note Date of Service: 07/16/24 Event Note: Day Team Follow Up S seen and examined. reports some improvement, comfortable on high flow O vitals - last documented gen - NAD lungs - comfortable on HFNC 80%/50L neuro - non-focal A/P 59 yo with metastatic colon ca presenting with sob + fevers, found to have p neumonia/sepsis/resp failure change abx to vancomcyin/cefepime continue eliquis (2.5mg bid dose per onc recs) remainder per H&P Time Spent With Patient Time: Total time managing care of this patient today ____ minutes.
[2024-07-16] MEDS: Apixaban 2.5 MG TABLET PO ×2 (09:28→20:30)
[2024-07-16] MEDS: vancomycin HCL 1,500 MG in 0.9 % Sodium Chloride 500 ML 333.33 MG IV ×2 (09:57→22:09)
[2024-07-16] MEDS: methylPREDNISolone Sod Succ 40 MG/ML VIAL IVPUSH ×2 (09:57→18:16)
--- NOTE | 2024-07-16 10:20 | PM.HEMONCCN ---
Subjective - Subjective Chief complaint: Shortness of breath, diarrhea, weakness Patient: known to practice within the last 3 years Consult date: 07/16/24 Primary Care Provider: Jr Quigley DO Medical Summary: Diagnosis: Metastatic colon cancer/sigmoid colon primary 12/2023 He developed symptoms of cough and shortness of breath around September 2023. He also noticed weight loss of over 40 lb secondary to loss of appetite in the last 6 months. Patient states that he has had worsening cough for which he was prescribed multiple rounds of antibiotics when he presented to walk-in centers. A chest x-ray in 11/05/2023 was abnormal, follow-up CT chest performed 12/02/2023 revealed innumerable pulmonary masses scattered throughout the lungs ranging in size from few mm to 2 cm in the left lower lobe. Marked bronchial wall thickening, normal mediastinum and no lymphadenopathy. He had absolutely no GI symptoms CT abdomen/pelvis shows no abnormalities of colon or lymphadenopathy in the abdomen. PET-CT performed at [facility] on 01/13/2024 showed multiple extensive abnormal FDG activity throughout bilateral lungs, a larger nodule in the left lung base measures 3 cm with SUV 4.73. Two areas of focal abnormal activity in the sigmoid colon with SUV 27 and intraluminal mass measuring 2.8 x 3.5 cm, 2nd lesion slightly inferior measuring 1.9 cm with SUV 10.41. Lytic lesion in left iliac bone with SUV 8.7, moderate metabolic activity in the right mid to distal femur corresponding to lytic lesion. Multiple bony metastatic lesions in the left scapula right femur and T8 vertebra. Initially, we discussed performing sigmoidoscopy/colonoscopy for additional tissue biopsy in case we did not have enough for NGS testing. However, all the molecular studies could be performed on lung biopsy specimen, therefore colonoscopy is being deferred. He started palliative chemotherapy with FOLFOX/Avastin in the first-line setting from 01/2024 along with zoledronic acid for bone metastasis. X-ray right femur revealed 2.4 cm lucency in the mid posterior femoral shaft. There is diffuse long segment sclerotic appearing periosteal/cortical thickening extending to subtrochanteric region. No definite cortical disruption identified. HPI - Consult Narrative Reason for consult: Patient on treatment for metastatic colon cancer Narrative: Silverio Dumas is a 59 year old male who was diagnosed in November of this year with metastatic colorectal cancer. He has been receiving palliative chemotherapy, he is currently on second-line treatment with at aggressive with cetuximab. Unfortunately he progressed on first-line chemotherapy with FOLFOX/Avastin after 6 months of treatment. Patient's called yesterday saying that patient has been feeling extremely weak for last 3-4 days. He had developed diarrhea, poor appetite and was feeling lethargic last 2 days. They did not notice any fever or chills. No hematochezia or melena. Patient initially refused to go to the ER but on my insistence, he agreed in he was brought to the emergency room Tuesday night. Review of Systems - Neurologic Denies confusion, Denies headache(s) [facility] Medical History: Medical History (Last Updated 07/16/24 @ 02:31 by Nette Ruiz PA-C) Asthma Colon cancer metastasized to lung Pulmonary nodules/lesions, multiple Surgical History: Surgical History (Last Reviewed 01/16/24 @ 13:52 by Sam Akers) History of lung biopsy Onset Date: ~12/2023 Social History: Social History (Last Reviewed 01/16/24 @ 13:52 by Sam Akers) Living Situation History: Household Members: Spouse Alcohol History Details: 1. How often do you have a drink containing alcohol?: b. Monthly or less 2. How many drinks containing alcohol do you have on a typical day when you are drinking?: a. 1 or 2 3. How often do you have six or more drinks on one occasion?: a. Never AUDIT-C Alcohol total score: 1 Tobacco History: Patient Tobacco Use Status: Never used Tobacco Smoked in Last 30 Days: No Substance Use History: Use of substances other than those prescribed or required for medical reasons: No Advance Directives: Advance Directives: Yes Advance Directives on File: Yes Advance Directives Date on File: 01/06/24 Homicidal Assessment: Do you have a plan to hurt others: No Plan Nutrition Assessment: Nutrition Risks: Acute nausea or vomiting Occupation Assessmet: service: No Sex/Gender Assessment: Gender identity: Male Home Medications and Allergies Current Medications: Current Medications Acetaminophen (Acetaminophen 325 Mg Tablet) 650 mg PO Q6H PRN PRN Reason: Pain, Mild 1-3,fever,headache Albuterol Sulfate (Albuterol Sulfate 90 Mcg 8 Gm Inhaler) 2 puff INHALE RQ4H PRN PRN Reason: Shortness of Breath/Wheezing Albuterol/Ipratropium (Albuterol/Iprat 2.5/0.5mg 3 Ml Ampul.Neb) 3 ml INHALE Q4H PRN PRN Reason: Wheezing Apixaban (Apixaban 2.5 Mg Tablet) 2.5 mg PO BID [facility] Last Admin: 07/16/24 09:28 Dose: 2.5 mg Calcium Carbonate (Calcium Carbonate 750 Mg Tab.Chew) 750 mg PO Q4H PRN PRN Reason: Heartburn Cefepime HCl (Maxipime) 2 gm in 50 mls @ 100 mls/hr IV Q8H [facility] Last Infusion: 07/16/24 09:58 Dose: Infused Magnesium Hydroxide (Milk Of Magnesia 30 Ml Oral.Susp) 30 ml PO DAILY PRN PRN Reason: Constipation Melatonin (Melatonin 3 Mg Tablet) 6 mg PO BEDTIME PRN PRN Reason: Insomnia Methylprednisolone Sodium Succinate (Methylprednisolone Sod Succ 40 Mg/Ml Vial) 40 mg IVPUSH Q8H [facility] Last Admin: 07/16/24 09:57 Dose: 40 mg Ondansetron HCl (Ondansetron Hcl 4 Mg/2 Ml Vial) 4 mg IVPUSH Q8H PRN PRN Reason: Nausea and Vomiting Pharmacy Consult (Consult Rx Vancomycin Dosing) 1 each MISCELLANE DAILY PRN PRN Reason: Consult order Sodium Chloride (0.9 % Sodium Chloride Flush 3 Ml Syringe) 3 ml IVFLUSH QSHIFT [facility] Last Admin: 07/16/24 08:46 Dose: 3 ml Home Medications ?Medication ?Instructions ?Recorded ?Confirmed ?Type loratadine 10 mg tablet 10 mg PO DAILY 12/23/23 07/16/24 History dextromethorphan polistirex 30 10 ml PO Q12H PRN Cough 01/24/24 07/16/24 History mg/5 mL oral susp ext.release 12hr (Delsym 12 hour) acetaminophen 325 mg tablet 650 mg PO QID PRN Pain 07/16/24 07/16/24 History (Tylenol) apixaban 2.5 mg tablet (Eliquis) 2.5 mg PO BID 07/16/24 07/16/24 History loperamide 2 mg capsule 2 mg PO QID PRN Diarrhea 07/16/24 07/16/24 History Allergies Allergy/AdvReac Type Severity Reaction Status Date / Time shellfish derived Allergy Unknown Verified 07/15/24 20:07 onion AdvReac Unknown Verified 07/16/24 01:05 Physical Exam Vital signs: Vital Signs Temp 98.6 F 07/16/24 09:58 Pulse 89 07/16/24 08:50 Resp 24 H 07/16/24 08:50 BP 112/70 07/16/24 08:50 Pulse Ox 94 07/16/24 08:50 O2 Del Method High Flow Nasal Cannula 07/16/24 08:50 O2 Flow Rate 50 07/16/24 08:50 Intake & Output 07/15/24 07/16/24 07/16/24 18:59 06:59 18:59 Intake Total 2377.25 / 2377.25 50 / 50 Balance 2377.25 / 2377.25 50 / 50 Intake: Intake, IV Amount 2377.25 / 2377.25 50 / 50 0.9 % Sodium Chloride 2,177.25 2177.25 / 2177.25 ml @ 2177.25 mls/hr IV .Q1H [facility] Rx#:[id number] cefEPime HCl/D5W 2 gm In 50 ml 50 / 50 50 / 50 @ 100 mls/hr IV Q8H [place] Rx#: [id number] levoFLOXacin/D5W 750 mg In 150 150 / 150 ml @ 100 mls/hr IV Q24H [place] Rx# :[id number] Other: Weight 72.575 kg Weight 72.575 kg Hem/Onc Consult Result - Labs CBC & Chem 7: 07/16/24 04:38 07/16/24 04:38 Labs: Short CBC 07/15/24 07/16/24 Range/Units 20:45 04:38 WBC 16.9 H 12.4 H (4.8-10.8) X10*3/uL Hgb 12.0 L 11.3 L (14.0-18.0) g/dl Hct 34.1 L D 32.5 L (42.0-52.0) % Plt Count 214 166 (160-400) X10*3/uL BMP 07/15/24 07/16/24 20:45 04:38 Sodium 128 L 133 L Potassium 4.1 4.1 Chloride 98 105 Carbon Dioxide 21 L 22 BUN 17 H 13 Creatinine 0.74 0.58 Calcium 9.0 7.9 L D Cardiac Enzymes 07/15/24 Range/Units 20:45 Total Creatine Kinase 36 L (38-174) U/L Liver Function 07/15/24 Range/Units 20:45 Total Bilirubin 0.5 (0.0-1.0) mg/dL AST 39 H (5-37) U/L ALT 25 (0-40) U/L Alkaline Phosphatase 145 H (39-117) U/L Albumin 3.1 L (3.5-5.0) g/dL Urine 07/15/24 Range/Units 23:20 Urine Color Yellow Urine Appearance Clear Urine pH 6.0 (5.0-9.0) Ur Specific [place] 1.015 (1.005-1.025) Urine Protein 30 (1+) H (Neg-Trace) mg/dL Urine Glucose (UA) Negative (Negative) mg/dL Assessment and Plan Patient Active problem list reviewed?: Yes (1) Colon cancer metastasized to lung Status: Chronic Assessment and plan: 1. This is a 59-year-old male who has been diagnosed with metastatic colorectal cancer diagnosed in 12/05/2023 who is now admitted for progressive weakness along with shortness of breath and diarrhea. Workup in the ER, CT chest/abdomen and pelvis with contrast showed severe airspace disease with known pulmonary carcinomatosis, superimposed edema and pneumonitis also considered. Left scapula osseous metastasis. In the abdomen there was evidence of gastroenteritis, fluid enlargement is time, mild colitis, no bowel obstruction. Redemonstration of multifocal osseous metastasis. He initially received chemotherapy with FOLFOX/Avastin in the first-line setting from 01/2024 to 06/10. Zoledronic acid for bone metastasis. Unfortunately he developed progressive disease based on imaging in May. He started Adagrasib 600 p.o. b.i.d. with cetuximab in the second-line setting from 07/03/2024. 2. For his subsegmental pulmonary emboli, he was started on Eliquis. Because of drug interaction with Adagrasib, Eliquis dose reduced to 2.5 mg b.i.d. 3. Probable pneumonitis, underlying pneumonia. He has been started on IV antibiotics. I have recommended steroids as well as imaging shows possibility of pneumonitis and he has developed hypoxemia. This is a rare but serious complication of adagrasib. 4. Diarrhea which is also side effect of treatment. His kidney functions are stable and he does not have any significant electrolyte abnormalities. Hyponatremia has improved. Appreciate hospitalist input, will follow with you. - Time Spent With Patient Time Spent with Patient (in minutes): 25 Additional Coding: - Additional E/M codes Complex E/M visit Add On: CPT G2211
--- NOTE | 2024-07-16 10:28 | PHA.PROG ---
Admission Date/Time: July 16, 2024 01:39 Indication:epsisS Weight in k.575 kg Adjusted body weight in Kg: [place] body weight in Kg: Obesity Dosing Indication % IBW: Serum Creatinine - Last 168 Hours 07/15/24 07/16/24 20:45 04:38 Creatinine 0.74 0.58 Estimated CrCl and GFR - Last 168 Hours 07/15/24 07/16/24 20:45 04:38 Estim Creat Clear Calc 101.4 129.3 Estimated GFR > 60 > 60 Vancomycin Loading Dose: 1500mg Current Vancomycin Dosing Regimen: 1500mg q12h Vancomycin Monitoring using AUC goal of 400 - 600 range with trough as surrogate marker: 593 mg/L Date and Time for next Vancomycin Level to be drawn: 07/17/24 @1999 Pharmacist Comments on Vancomycin Plan: projected trough is 17 mg/L, will get level before 4th dose. Vancomycin dosing will take advantage of [employer] as a clinical decision support tool that uses Bayesian modeling to calculate individual patient's pharmacokinetic parameters and forecast the patient's drug concentration time course with the target goal AUC 24 range of 400 - 600 mg/L/hr.
[2024-07-16] MEDS: Albuterol/Iprat 2.5/0.5MG 3 ML AMPUL.NEB INHALE ×2 (11:04→21:05)
--- NOTE | 2024-07-16 13:51 | PC.NURSE ---
pt with increased WOB, escalating as the day has progressed. pt c/o of being just tired when asked how he is feeling. remains on high flow 80% 50L, Sao2 from 89-92%, pt desat with minimal movement/coughing/eating at times down to the 70s. pt with good recovery. pts at bedside. offering no other complaints at this time. pt awaiting inpatient bed assignment.
[2024-07-17] VITALS (12 sets, daily range): BP systolic 123–133; BP diastolic 72–81; PULSE 87–102; RESP 18–30; TEMP 36.7–37.4; O2SAT 84–99
[2024-07-17] MEDS: cefEPime HCl/D5W 2 GM/50 ML PIGGYBACK IV ×4 (00:11→23:16)
[2024-07-17] MEDS: methylPREDNISolone Sod Succ 40 MG/ML VIAL IVPUSH ×2 (01:18→08:48)
[2024-07-17] MEDS: Albuterol/Iprat 2.5/0.5MG 3 ML AMPUL.NEB INHALE ×4 (01:40→20:17)
[2024-07-17] MEDS: guaiFEN/Codeine SF 200/20/10ML 10 ML LIQUID PO ×4 (02:27→23:14)
[2024-07-17 06:30] LABS: Hematocrit 33.5 % (42.0-52.0); Hemoglobin 11.5 g/dl (14.0-18.0); Mean Corpuscular HGB Conc 34.3 g/dl (31.0-36.0); Mean Corpuscular Hemoglobin 29.6 pg (27.0-33.0); Mean Corpuscular Volume 86.1 fL (80.0-98.0); Mean Platelet Volume 10.9 fL (9.4-12.4); Platelet Count 194 X10*3/uL (160-400); Red Blood Count 3.89 X10*6/uL (4.60-5.80); Red Cell Distribution Width 14.1 % (11.0-16.0); White Blood Count 11.6 X10*3/uL (4.8-10.8)
[2024-07-17 06:47] LABS: Anion Gap 10 (12-20); Blood Urea Nitrogen 12 mg/dL (9-16); Carbon Dioxide 24 mmol/L (22-29); Chloride 104 mmol/L (96-108); Creatinine Clr Calc Pharmacy 131.6; Estimated Glomerular Filt Rate > 60; Glucose Random 219 mg/dL (60-115); Potassium 4.3 mmol/L (3.3-5.1); Sodium 134 mmol/L (135-145)
[2024-07-17] MEDS: Apixaban 2.5 MG TABLET PO (08:48)
[2024-07-17] MEDS: 0.9 % Sodium Chloride Flush 3 ML SYRINGE IVFLUSH ×3 (08:59→21:32)
--- NOTE | 2024-07-17 09:14 | MHC.CM.PN ---
CM met with Patient at bedside. Patient lives in a house with his /HCP/Jayde and an adult Son. [place] [facility] and he is functionally independent (no DME). Home/self care is the goal and CM has initiated and will follow for dc planning. PCP is Dr. Quigley and will transport to home.
[2024-07-17] MEDS: vancomycin HCL 1,500 MG in 0.9 % Sodium Chloride 500 ML 333.33 MG IV (09:27)
--- NOTE | 2024-07-17 10:48 | HO.PM.IMPN ---
Subjective Subjective Date of Service: 07/17/24 Interval History: seen and examined this AM reports he had a rough night becomes hypoxic with min exertion HFNC settings increased to 100%/55L Review of Systems Negative except HPI/interval history. Physical Exam Vital Signs: Vital Signs: Last Vital Signs Temp 98.2 F 07/17/24 07:17 Pulse 87 07/17/24 07:17 Resp 26 H 07/17/24 07:36 BP 133/81 07/17/24 07:17 Pulse Ox 99 07/17/24 07:17 O2 Del Method High Flow Nasal C annula 07/17/24 07:17 O2 Flow Rate 55 07/17/24 07:17 FiO2 99.4 07/17/24 07:17 BMI result Body Mass Index 24.3 Const: Other: General - no acute distress, appears comfortable Cardiovascular - regular rate and rhythm, S1-S2 Lungs - increased wob with conversation; sats dropping to mid 80s at time; lung sounds coarse Abdomen - soft, nontender, no rebound or guarding Extremities - no edema bilaterally Neuro - awake and alert, no focal deficits Objective Data Active Medications Acetaminophen (Acetaminophen 325 Mg Tablet) 650 mg PO Q6H PRN PRN Reason: Pain, Mild 1-3,fever,headache Albuterol Sulfate (Albuterol Sulfate 90 Mcg 8 Gm Inhaler) 2 puff INHALE RQ4H PRN PRN Reason: Shortness of Breath/Wheezing Albuterol/Ipratropium (Albuterol/Iprat 2.5/0.5mg 3 Ml Ampul.Neb) 3 ml INHALE Q4H PRN PRN Reason: Wheezing Last Admin: 07/17/24 01:40 Dose: 3 ml Documented By: ANGELO Apixaban (Apixaban 2.5 Mg Tablet) 2.5 mg PO BID [place] Last Admin: 07/17/24 08:48 Dose: 2.5 mg Documented By: JOSLYN Calcium Carbonate (Calcium Carbonate 750 Mg Tab.Chew) 750 mg PO Q4H PRN PRN Reason: Heartburn Guaifenesin/Codeine Phosphate (Guaifen/Codeine Sf 200/20/10ml 10 Ml Liquid) 10 ml PO Q4H PRN PRN Reason: Cough Last Admin: 07/17/24 02:27 Dose: 10 ml Documented By: HOSSEIN Cefepime HCl (Maxipime) 2 gm in 50 mls @ 100 mls/hr IV Q8H [facility] Last Infusion: 07/17/24 09:32 Dose: Infused Documented By: JOSLYN Vancomycin HCl 1,500 mg/ (Sodium Chloride) 500 mls @ 333.333 mls/hr IV Q12H [facility] Last Admin: 07/17/24 09:27 Dose: 333.33 mls/hr Documented By: JOSLYN Magnesium Hydroxide (Milk Of Magnesia 30 Ml Oral.Susp) 30 ml PO DAILY PRN PRN Reason: Constipation Melatonin (Melatonin 3 Mg Tablet) 6 mg PO BEDTIME PRN PRN Reason: Insomnia Methylprednisolone Sodium Succinate (Methylprednisolone Sod Succ 40 Mg/Ml Vial) 40 mg IVPUSH Q8H [facility] Last Admin: 07/17/24 08:48 Dose: 40 mg Documented By: JOSLYN Ondansetron HCl (Ondansetron Hcl 4 Mg/2 Ml Vial) 4 mg IVPUSH Q8H PRN PRN Reason: Nausea and Vomiting Pharmacy Consult (Consult Rx Vancomycin Dosing) 1 each MISCELLANE DAILY PRN PRN Reason: Consult order Sodium Chloride (0.9 % Sodium Chloride Flush 3 Ml Syringe) 3 ml IVFLUSH QSHIFT [facility] [place] Last Admin: 07/17/24 08:59 Dose: 3 ml Documented By: JOSLYN Labs 07/17/24 06:17 07/17/24 06:17 Labs: Laboratory Results - last 24 hr 07/17/24 06:17 MCV 86.1 MCH 29.6 MCHC 34.3 RDW 14.1 Plt Count 194 MPV 10.9 Absolute Nucleated RBC 0.000 Nucleated RBC % (auto) 0.0 Anion Gap 10 L Estim Creat Clear Calc 131.6 Estimated GFR > 60 Random Glucose 219 H Calcium 8.0 L Microbiology Microbiology Results: Microbiology 07/15/24 20:46 Blood Culture - Preliminary Blood - Venous No growth after 24 hours. 07/15/24 20:44 Blood Culture - Preliminary Blood - Venous No growth after 24 hours. Assessment and Plan (1) Acute respiratory failure with hypoxia: Status: Acute (2) Sepsis: Status: Acute Plan The patient is a 59-year-old male with a past medical history significant for metastatic colon cancer to the lung who presented to the emergency room with diarrhea, body aches, fevers and shortness of breath which began after he started a new chemotherapeutic regimen. His workup in the emergency room including CT scan and blood work was consistent with sepsis and acute respiratory failure with hypoxia likely due to superimposed infection and underlying cancer. 1. Acute respiratory failure with hypoxia and sepsis Due to pneumonia and underlying known metastatic cancer, question pneumonitis On high-flow nasal cannula at 100% FiO2/55 L Continue cefepime and vancomycin Continue IV steroids We will ask Pulmonary input to see if high-dose steroids indicated Oncology appreciated 2. Diarrhea Likely due to new chemotherapeutic agent Now resolved If recurrent we will check stool studies 3. Hyponatremia Improving with fluids 4. History of pulmonary embolism On Eliquis, 2.5 b.i.d. to drug interaction We will discuss with Hematology regarding dose Discussed with the patient, briefly, regarding goals of care. At this time he remains full code DVT prophylaxis, Eliquis Quality Stroke Does the patient have a stroke diagnosis?: No VTE Prior VTE?: No VTE Risk Level:: Medical - moderate - high VTE Device Contraindication: Treatment Not Indicated VTE Drug Contraindication: N/A - Med Ordered
[2024-07-17] MEDS: Acetaminophen 325 MG TABLET 650 MG PO (11:46)
[2024-07-17] MEDS: Sulfamethox/Trimeth 800/160 TABLET 2 TAB PO ×2 (13:42→20:20)
[2024-07-17] MEDS: methylPREDNISolone Sod Succ 125 MG/2 ML VIAL IVPUSH ×2 (13:52→21:29)
[2024-07-17 15:18] LABS: Adenovirus PCR Not Detected (Not Detect.); Bordetella parapertussis PCR Not Detected (Not Detect.); Bordetella pertussis PCR Not Detected (Not Detect.); Chlamydia pneumoniae PCR Not Detected (Not Detect.); Coronavirus 229E PCR Not Detected (Not Detect.); Coronavirus HKU1 PCR Not Detected (Not Detect.); Coronavirus NL63 PCR Not Detected (Not Detect.); Coronavirus OC43 PCR Not Detected (Not Detect.); Human metapneumovirus PCR Not Detected (Not Detect.); Influenza A PCR Not Detected (Not Detect.); Influenza B PCR Not Detected (Not Detect.); Mycoplasma pneumoniae PCR Not Detected (Not Detect.); Parainfluenza 1 PCR Not Detected (Not Detect.); Parainfluenza 2 PCR Not Detected (Not Detect.); Parainfluenza 3 PCR Not Detected (Not Detect.); Parainfluenza 4 PCR Not Detected (Not Detect.); RSV PCR Not Detected (Not Detect.); Rhino/Enterovirus PCR Not Detected (Not Detect.)
[2024-07-17 15:24] LABS: SARS-CoV-2 PCR Not Detected (Not Detect.)
--- NOTE | 2024-07-17 15:51 | P.CONPL_ITS ---
History of Present Illness History of Present Illness Consult date: 07/17/24 Chief complaint: Dyspnea Narrative: This is an in patient pulmonary consultation. The patient is a 59-year-old male with a past medical history significant for metastatic colon cancer who presented to the ED with diarrhea, body aches, fever and shortness of breath. He reports that he was started on a new chemotherapy agent (Adagrasib with cetuximab) for his metastatic colon cancer to the lungs and has been progressively feeling worse. Was told that diarrhea is a very common side effect with this new agent and has been taking Imodium as needed. He has diarrhea about 2 times a day without any blood stool. He also has associated nausea but no vomiting. His most bothersome symptom is the shortness of breath and weakness. He does have a chronic cough and reports that this is nonproductive and has not changed from his baseline, however he is requiring oxygen which she does not usually use. He reports any recent sick contacts. His highest temperature measured at home was 101.6. His oncologist is Dr Cox. Review of Systems 2 Constitutional: Constitutional: Denies body ache(s), Denies chills, Reports fatigue, Reports fever(s) and Denies headache(s) Eyes: Eyes: Denies change in vision ENT: Denies headache(s), Denies nasal congestion, Denies nasal discharge and Denies sore throat Cardiovascular: Cardiovascular: Denies chest pain, Denies rapid heart rate, Denies lightheadedness and Reports dyspnea Respiratory: Respiratory: Denies chest congestion, Reports cough (chronic), Reports dyspnea and Denies wheezing Gastrointestinal: Gastrointestinal: Denies melena, Denies hematochezia, Denies coffee ground emesis, Denies constipation, Reports diarrhea, Reports nausea and Denies vomiting Genitourinary: Genitourinary: Denies dysuria, Denies urinary frequency and Denies urinary incontinence Musculoskeletal: Musculoskeletal: Denies myalgias Integumentary/Breasts: Skin/Breast: Reports rash (on chest since starting new chemo regimen, evaluated by Dr Cox already) Neurologic: Denies confusion and Denies headache(s) Psychiatric: Psychiatric: Denies confusion Endocrine: Endocrine: Reports fatigue Hematologic/Lymphatic: Hematologic/Lymphatic: Denies easy bleeding Allergic/Immunologic: Allergic/Immunologic: Denies wheezing PMFSH Past Medical History Medical History (Updated 12/31/24 @ 15:53 by Andi Johns MD) Colon cancer metastasized to lung Asthma Pulmonary nodules/lesions, multiple Surgical History Surgical History History of lung biopsy (~12/2023) Social History Social History Household Members: Spouse Housing: House Do you presently have visiting nurse or other home services: No Patient Tobacco Use Status: Never used Tobacco Advance Directives Date on File: 01/06/24 service: Yes Gender identity: Male Meds Allergies Allergy/AdvReac Type Severity Reaction Status Date / Time shellfish derived Allergy Unknown Verified 07/15/24 20:07 onion AdvReac Unknown Verified 07/16/24 01:05 Active Medications: Current Medications Acetaminophen (Acetaminophen 325 Mg Tablet) 650 mg PO Q6H PRN PRN Reason: Pain, Mild 1-3,fever,headache Last Admin: 07/17/24 11:46 Dose: 650 mg Albuterol/Ipratropium (Albuterol/Iprat 2.5/0.5mg 3 Ml Ampul.Neb) 3 ml INHALE Q4H PRN PRN Reason: Wheezing Last Admin: 07/17/24 01:40 Dose: 3 ml Albuterol/Ipratropium (Albuterol/Iprat 2.5/0.5mg 3 Ml Ampul.Neb) 3 ml INHALE RQ4H WHILE AWAKE [place] Last Admin: 07/17/24 14:57 Dose: 3 ml Apixaban (Apixaban 5 Mg Tablet) 5 mg PO BID [place] Calcium Carbonate (Calcium Carbonate 750 Mg Tab.Chew) 750 mg PO Q4H PRN PRN Reason: Heartburn Guaifenesin/Codeine Phosphate (Guaifen/Codeine Sf 200/20/10ml 10 Ml Liquid) 10 ml PO Q4H PRN PRN Reason: Cough Last Admin: 07/17/24 11:47 Dose: 10 ml Cefepime HCl (Maxipime) 2 gm in 50 mls @ 100 mls/hr IV Q8H [place] Last Admin: 07/17/24 15:18 Dose: 100 mls/hr Vancomycin HCl 1,500 mg/ (Sodium Chloride) 500 mls @ 333.333 mls/hr IV Q12H [place] Last Infusion: 07/17/24 11:20 Dose: Infused Magnesium Hydroxide (Milk Of Magnesia 30 Ml Oral.Susp) 30 ml PO DAILY PRN PRN Reason: Constipation Melatonin (Melatonin 3 Mg Tablet) 6 mg PO BEDTIME PRN PRN Reason: Insomnia Methylprednisolone Sodium Succinate (Methylprednisolone Sod Succ 125 Mg/2 Ml Vial) 125 mg IVPUSH Q8H [facility] Last Admin: 07/17/24 13:52 Dose: 125 mg Ondansetron HCl (Ondansetron Hcl 4 Mg/2 Ml Vial) 4 mg IVPUSH Q8H PRN PRN Reason: Nausea and Vomiting Pharmacy Consult (Consult Rx Vancomycin Dosing) 1 each MISCELLANE DAILY PRN PRN Reason: Consult order Sodium Chloride (0.9 % Sodium Chloride Flush 3 Ml Syringe) 3 ml IVFLUSH QSHIFT [facility] Last Admin: 07/17/24 08:59 Dose: 3 ml Trimethoprim/Sulfamethoxazole (Sulfamethox/Trimeth 800/160 Tablet) 2 tab PO TID [facility] Last Admin: 07/17/24 13:42 Dose: 2 tab Home Medications ?Medication ?Instructions ?Recorded ?Confirmed ?Last Taken ?Type loratadine 10 mg tablet 10 mg PO DAILY 12/23/23 07/16/24 07/15/24 History dextromethorphan polistirex 30 10 ml PO Q12H PRN Cough 01/24/24 07/16/24 Unknown History mg/5 mL oral susp ext.release 12hr (Delsym 12 hour) acetaminophen 325 mg tablet 650 mg PO QID PRN Pain 07/16/24 07/16/24 Unknown History (Tylenol) apixaban 2.5 mg tablet (Eliquis) 2.5 mg PO BID 07/16/24 07/16/24 07/15/24 History loperamide 2 mg capsule 2 mg PO QID PRN Diarrhea 07/16/24 07/16/24 Unknown History Physical Exam 2 Vital Signs: Vital Signs: Last Vital Signs Temp 98.1 F 07/17/24 11:51 Pulse 93 07/17/24 15:00 Resp 24 H 07/17/24 15:00 BP 127/72 07/17/24 11:51 Pulse Ox 91 L 07/17/24 11:51 O2 Del Method High Flow Nasal C annula 07/17/24 11:51 O2 Flow Rate 45 07/17/24 11:51 FiO2 92.0 07/17/24 11:51 BMI result Body Mass Index 24.3 Const: General: tired appearing; No confusion Nutritional Appearance: not obese Orientation/consciousness: No confusion HEENT: Head: Yes atraumatic Eyes: General: appearance normal, both eyes and all related structures S clerae: sclerae normal EOM: EOMs intact bilaterally Neck: Neck: Yes supple Lymphatic: no lymphadenopathy noted Chest: Chest palpation & inspection: normal inspection of the chest Resp: Effort & Inspection: normal respiratory effort, labored and tachypneic Auscultation: rales, wheezes and diminished lung sounds Cardio: Rate: regular rate Rhythm: regular rhythm Heart sounds: no gallops, no murmurs and no rubs Skin: General skin exam: other ( warm) Neuro: General: No confusion Extrem: General: No clubbing, No cyanosis and No edema Results Laboratory Findings 07/17/24 06:17 07/17/24 06:17 ABG, PT/INR, D-dimer: PT/INR, D-dimer PT 16.5 SEC (10.9-12.4) H 07/15/24 20:45 INR 1.4 (0.9-1.1) H 07/15/24 20:45 Abnormal lab findings: Abnormal Labs 07/15/24 07/15/24 07/15/24 20:45 20:51 23:20 WBC 16.9 H RBC 3.97 L Hgb 12.0 L Hct 34.1 L D Immature Gran % (Auto) 0.7 H Neut % (Auto) 90.7 H Lymph % (Auto) 2.3 L Lymph # (Auto) 0.4 L Abs Immat Gran (auto) 0.11 H Absolute Neuts (auto) 15.3 H PT 16.5 H INR 1.4 H VBG pH 7.50 H Sodium 128 L Carbon Dioxide 21 L Anion Gap BUN 17 H Random Glucose 198 H Calcium AST 39 H Alkaline Phosphatase 145 H Total Creatine Kinase 36 L Total Protein 6.3 L Albumin 3.1 L Urine Protein 30 (1+) H 07/16/24 07/17/24 04:38 06:17 WBC 12.4 H 11.6 H RBC 3.75 L 3.89 L Hgb 11.3 L 11.5 L Hct 32.5 L 33.5 L Immature Gran % (Auto) Neut % (Auto) 85.1 H Lymph % (Auto) 4.7 L Lymph # (Auto) 0.6 L Abs Immat Gran (auto) 0.05 H Absolute Neuts (auto) 10.6 H PT INR VBG pH Sodium 133 L 134 L Carbon Dioxide Anion Gap 10 L 10 L BUN Random Glucose 136 H 219 H Calcium 7.9 L D 8.0 L AST Alkaline Phosphatase Total Creatine Kinase Total Protein Albumin Urine Protein Microbiology: Microbiology 07/15/24 20:46 Blood - Venous Blood Culture - Preliminary No growth after 24 hours. 07/15/24 20:44 Blood - Venous Blood Culture - Preliminary No growth after 24 hours. Assessment and Plan (1) Acute respiratory failure with hypoxia: Status: Acute (2) Pneumonia: Qualifiers: Pneumonia type: due to unspecified organism Laterality: bilateral Lung location: unspecified part of lung Qualified Code(s): J18.9 - Pneumonia, unspecified organism Status: Acute (3) Colon cancer metastasized to lung: Status: Chronic (4) Pulmonary nodules/lesions, multiple: Status: Acute Plan Increase solumedrol 125mg IV Q8 start bactrim for PCP and atypical coverage continue broad spectrum abx resp viral panel procalcitonin Not helpful to checK BDglucan, but will check LDH Poor prognosis, guarded condition Procedures Date of Service Date of Service: 07/17/24
[2024-07-17 17:20] LABS: Erythrocyte Sedimentation Rate 84 MM/HR (0-15)
[2024-07-17 17:53] LABS: Procalcitonin 0.19 ng/mL
[2024-07-17 18:30] LABS: Lactate Dehydrogenase 298 U/L (118-273)
[2024-07-17 20:17] LABS: Vancomycin Random 10.3 mcg/mL (15-20)
[2024-07-17] MEDS: Apixaban 5 MG TABLET PO (20:20)
[2024-07-17] MEDS: vancomycin HCL 1,250 MG in 0.9 % Sodium Chloride 250 ML 166.67 MG IV (21:29)
[2024-07-18] VITALS (15 sets, daily range): BP systolic 115–123; BP diastolic 62–77; PULSE 85–108; RESP 18–26; TEMP 36.3–37.3; O2SAT 91–99
[2024-07-18] MEDS: vancomycin HCL 1,250 MG in 0.9 % Sodium Chloride 250 ML 166.67 MG IV ×3 (05:06→21:49)
[2024-07-18] MEDS: methylPREDNISolone Sod Succ 125 MG/2 ML VIAL IVPUSH ×3 (05:06→20:42)
[2024-07-18] MEDS: Albuterol/Iprat 2.5/0.5MG 3 ML AMPUL.NEB INHALE ×4 (07:52→19:39)
[2024-07-18] MEDS: Docusate Sodium 100 MG CAPSULE PO (08:28)
[2024-07-18] MEDS: guaiFEN/Codeine SF 200/20/10ML 10 ML LIQUID PO ×3 (08:28→20:42)
[2024-07-18] MEDS: Apixaban 5 MG TABLET PO ×2 (08:28→20:42)
[2024-07-18] MEDS: Sulfamethox/Trimeth 800/160 TABLET 2 TAB PO ×3 (08:28→20:42)
[2024-07-18] MEDS: 0.9 % Sodium Chloride Flush 3 ML SYRINGE IVFLUSH ×2 (08:29→15:01)
[2024-07-18] MEDS: cefEPime HCl/D5W 2 GM/50 ML PIGGYBACK IV ×3 (08:29→23:53)
[2024-07-18 10:36] LABS: Estimated Glomerular Filt Rate > 60
--- NOTE | 2024-07-18 12:47 | P.PNPL_ITS ---
Subjective Subjective Date of Service: 07/18/24 Interval history: The patient was seen and examined. The patient continues to use HF. Tolerating the high dose steroids. Objective Data Labs 07/17/24 06:17 07/18/24 09:50 Labs: Laboratory Results - last 24 hr 07/17/24 07/17/24 07/17/24 14:12 16:24 19:41 ESR 84 H Creatinine Estim Creat Clear Calc Estimated GFR Lactate Dehydrogenase 298 H Procalcitonin 0.19 Random Vancomycin 10.3 L Respiratory Panel Jason See Note Adenovirus (Rapid PCR) Not Detected B.pert (TEM-PCR) Not Detected B.parapertussis DNA PCR Not Detected C. pneumoniae DNA (PCR) Not Detected Coronavirus OC43 (PCR) Not Detected Coronavirus HKU1 (PCR) Not Detected Coronavirus 229E (PCR) Not Detected Coronavirus NL63 (PCR) Not Detected Human Metapneumovir PCR Not Detected Influenza A (RT-PCR) Not Detected Influenza B (RT-PCR) Not Detected M. pneumoniae (PCR) Not Detected Parainfluenza 1 (PCR) Not Detected Parainfluenza 2 (PCR) Not Detected Parainfluenza 3 (PCR) Not Detected Parainfluenza 4 (PCR) Not Detected RSV (PCR) Not Detected Entero/Rhino (PCR) Not Detected SARS-CoV-2 RNA (RT-PCR) Not Detected 07/18/24 09:50 ESR Creatinine 0.60 Estim Creat Clear Calc 125.0 Estimated GFR > 60 Lactate Dehydrogenase Procalcitonin Random Vancomycin Respiratory Panel Jason Adenovirus (Rapid PCR) B.pert (TEM-PCR) B.parapertussis DNA PCR C. pneumoniae DNA (PCR) Coronavirus OC43 (PCR) Coronavirus HKU1 (PCR) Coronavirus 229E (PCR) Coronavirus NL63 (PCR) Human Metapneumovir PCR Influenza A (RT-PCR) Influenza B (RT-PCR) M. pneumoniae (PCR) Parainfluenza 1 (PCR) Parainfluenza 2 (PCR) Parainfluenza 3 (PCR) Parainfluenza 4 (PCR) RSV (PCR) Entero/Rhino (PCR) SARS-CoV-2 RNA (RT-PCR) Microbiology Microbiology Results: Microbiology 07/15/24 20:46 Blood - Venous Blood Culture - Preliminary No growth after 48 hours. 07/15/24 20:44 Blood - Venous Blood Culture - Preliminary No growth after 48 hours. Review of Systems Constitutional: Denies body ache(s), Denies chills, Reports fatigue, Reports fever(s) and Denies headache(s) Eyes: Denies change in vision Denies headache(s), Denies nasal congestion, Denies nasal discharge and Denies sore throat Cardiovascular: Denies chest pain, Denies rapid heart rate, Denies lightheadedness and Reports dyspnea Respiratory: Denies chest congestion, Reports cough (chronic), Reports dyspnea and Denies wheezing Gastrointestinal: Denies melena, Denies hematochezia, Denies coffee ground emesis, Denies constipation, Reports diarrhea, Reports nausea and Denies vomiting Genitourinary: Denies dysuria, Denies urinary frequency and Denies urinary incontinence Musculoskeletal: Denies myalgias Skin/Breast: Reports rash (on chest since starting new chemo regimen, evaluated by Dr Cox already) Denies confusion and Denies headache(s) Psychiatric: Denies confusion Endocrine: Reports fatigue Hematologic/Lymphatic: Denies easy bleeding Allergic/Immunologic: Denies wheezing Physical Exam 2 Vital Signs: Vital Signs: Last Vital Signs Temp 98.2 F 07/18/24 11:35 Pulse 94 07/18/24 11:46 Resp 20 07/18/24 11:46 BP 116/67 07/18/24 11:35 Pulse Ox 96 07/18/24 11:35 O2 Del Method High Flow Nasal C annula 07/18/24 11:35 O2 Flow Rate 50 07/18/24 11:35 FiO2 76.7 07/18/24 11:35 BMI result Body Mass Index 24.3 Const: General: No confusion Nutritional Appearance: not obese O rientation/consciousness: No confusion HEENT: Head: Yes atraumatic Eyes: General: appearance normal, both eyes and all related structures S clerae: sclerae normal EOM: EOMs intact bilaterally Neck: Neck: Yes supple Lymphatic: no lymphadenopathy noted Chest: Chest palpation & inspection: normal inspection of the chest Resp: Effort & Inspection: normal respiratory effort, not labored and not tachypneic Auscultation: no rales, no wheezes and diminished lung sounds Cardio: Rate: regular rate Rhythm: regular rhythm Heart sounds: no gallops, no murmurs and no rubs Skin: General skin exam: other ( warm) Neuro: General: No confusion Extrem: General: No clubbing, No cyanosis and No edema Procedures Date of Service Date of Service: 07/18/24 Assessment and Plan Assessment and plan (1) Acute respiratory failure with hypoxia: Status: Acute (2) Pneumonia: Status: Acute (3) Pneumonitis: Status: Acute (4) Pulmonary nodules/lesions, multiple: Problem details: CT imaging is reviewed. Given the possibility of septic emboli versus metastatic disease, patient is transferred to the emergency department for CTA evaluation and laboratories. Status: Acute Plan continue HF and wean to FIO2 to keep pox >88% Continue broad spectrum abx continue high dose solumedrol OOB ISS Guarded, poor prognosis Time Spent With Patient Time: Total time managing care of this patient today ____ minutes. Progress Note: Quality Stroke Does the patient have a stroke diagnosis?: No
--- NOTE | 2024-07-18 13:46 | P.PNIM_ITS ---
Subjective Subjective Date of Service: 07/18/24 Interval History: seen and examined this AM becomes hypoxic with min exertion Review of Systems Negative except HPI/interval history. Physical Exam 2 Vital Signs: Vital Signs: Last Vital Signs Temp 98.2 F 07/18/24 11:35 Pulse 94 07/18/24 11:46 Resp 20 07/18/24 11:46 BP 116/67 07/18/24 11:35 Pulse Ox 96 07/18/24 11:35 O2 Del Method High Flow Nasal C annula 07/18/24 11:35 O2 Flow Rate 50 07/18/24 11:35 FiO2 76.7 07/18/24 11:35 BMI result Body Mass Index 24.3 Appearing in no acute distress lung sounds diminshed heart regular rate rhythm, clear S1, S2 positive bowel sounds, abdomen is soft, nontender neuro patient is alert x3, no focal deficits Objective Data Active Medications Acetaminophen (Acetaminophen 325 Mg Tablet) 650 mg PO Q6H PRN PRN Reason: Pain, Mild 1-3,fever,headache Last Admin: 07/17/24 11:46 Dose: 650 mg Documented By: JOSLYN Albuterol/Ipratropium (Albuterol/Iprat 2.5/0.5mg 3 Ml Ampul.Neb) 3 ml INHALE Q4H PRN PRN Reason: Wheezing Last Admin: 07/17/24 01:40 Dose: 3 ml Documented By: ANGELO Albuterol/Ipratropium (Albuterol/Iprat 2.5/0.5mg 3 Ml Ampul.Neb) 3 ml INHALE RQ4H WHILE AWAKE [facility] Last Admin: 07/18/24 11:45 Dose: 3 ml Documented By: KACY Apixaban (Apixaban 5 Mg Tablet) 5 mg PO BID [facility] Last Admin: 07/18/24 08:28 Dose: 5 mg Documented By: WILLIAM Calcium Carbonate (Calcium Carbonate 750 Mg Tab.Chew) 750 mg PO Q4H PRN PRN Reason: Heartburn Docusate Sodium (Docusate Sodium 100 Mg Capsule) 100 mg PO BEDTIME PRN PRN Reason: Constipation Last Admin: 07/18/24 08:28 Dose: 100 mg Documented By: WILLIAM Guaifenesin/Codeine Phosphate (Guaifen/Codeine Sf 200/20/10ml 10 Ml Liquid) 10 ml PO Q4H PRN PRN Reason: Cough Last Admin: 07/18/24 08:28 Dose: 10 ml Documented By: WILLIAM Cefepime HCl (Maxipime) 2 gm in 50 mls @ 100 mls/hr IV Q8H [facility] Last Infusion: 07/18/24 10:08 Dose: Infused Documented By: WILLIAM Vancomycin HCl 1,250 mg/ (Sodium Chloride) 250 mls @ 166.667 mls/hr IV Q8H [facility] Last Infusion: 07/18/24 07:46 Dose: Infused Documented By: WILLIAM Magnesium Hydroxide (Milk Of Magnesia 30 Ml Oral.Susp) 30 ml PO DAILY PRN PRN Reason: Constipation Melatonin (Melatonin 3 Mg Tablet) 6 mg PO BEDTIME PRN PRN Reason: Insomnia Methylprednisolone Sodium Succinate (Methylprednisolone Sod Succ 125 Mg/2 Ml Vial) 125 mg IVPUSH Q8H [facility] Last Admin: 07/18/24 05:06 Dose: 125 mg Documented By: HOSSEIN Ondansetron HCl (Ondansetron Hcl 4 Mg/2 Ml Vial) 4 mg IVPUSH Q8H PRN PRN Reason: Nausea and Vomiting Pharmacy Consult (Consult Rx Vancomycin Dosing) 1 each MISCELLANE DAILY PRN PRN Reason: Consult order Sodium Chloride (0.9 % Sodium Chloride Flush 3 Ml Syringe) 3 ml IVFLUSH QSHIFT [facility] Last Admin: 07/18/24 08:29 Dose: 3 ml Documented By: WILLIAM Trimethoprim/Sulfamethoxazole (Sulfamethox/Trimeth 800/160 Tablet) 2 tab PO TID [facility] Last Admin: 07/18/24 08:28 Dose: 2 tab Documented By: WILLIAM Labs 07/17/24 06:17 07/18/24 09:50 Labs: Laboratory Results - last 24 hr 07/17/24 07/17/24 07/17/24 14:12 16:24 19:41 ESR 84 H Estim Creat Clear Calc Estimated GFR Lactate Dehydrogenase 298 H Procalcitonin 0.19 Random Vancomycin 10.3 L Respiratory Panel Jason See Note Adenovirus (Rapid PCR) Not Detected B.pert (TEM-PCR) Not Detected B.parapertussis DNA PCR Not Detected C. pneumoniae DNA (PCR) Not Detected Coronavirus OC43 (PCR) Not Detected Coronavirus HKU1 (PCR) Not Detected Coronavirus 229E (PCR) Not Detected Coronavirus NL63 (PCR) Not Detected Human Metapneumovir PCR Not Detected Influenza A (RT-PCR) Not Detected Influenza B (RT-PCR) Not Detected M. pneumoniae (PCR) Not Detected Parainfluenza 1 (PCR) Not Detected Parainfluenza 2 (PCR) Not Detected Parainfluenza 3 (PCR) Not Detected Parainfluenza 4 (PCR) Not Detected RSV (PCR) Not Detected Entero/Rhino (PCR) Not Detected SARS-CoV-2 RNA (RT-PCR) Not Detected 07/18/24 09:50 ESR Estim Creat Clear Calc 125.0 Estimated GFR > 60 Lactate Dehydrogenase Procalcitonin Random Vancomycin Respiratory Panel Jason Adenovirus (Rapid PCR) B.pert (TEM-PCR) B.parapertussis DNA PCR C. pneumoniae DNA (PCR) Coronavirus OC43 (PCR) Coronavirus HKU1 (PCR) Coronavirus 229E (PCR) Coronavirus NL63 (PCR) Human Metapneumovir PCR Influenza A (RT-PCR) Influenza B (RT-PCR) M. pneumoniae (PCR) Parainfluenza 1 (PCR) Parainfluenza 2 (PCR) Parainfluenza 3 (PCR) Parainfluenza 4 (PCR) RSV (PCR) Entero/Rhino (PCR) SARS-CoV-2 RNA (RT-PCR) Microbiology Microbiology Results: Microbiology 07/15/24 20:46 Blood Culture - Preliminary Blood - Venous No growth after 48 hours. 07/15/24 20:44 Blood Culture - Preliminary Blood - Venous No growth after 48 hours. Assessment and Plan (1) Acute respiratory failure with hypoxia: Status: Acute (2) Sepsis: Status: Acute Plan 59-year-old male with a past medical history significant for metastatic colon cancer to the lung who presented to the emergency room with diarrhea, body aches, fevers and shortness of breath which began after he started a new chemotherapeutic regimen. His workup in the emergency room including CT scan and blood work was consistent with sepsis and acute respiratory failure with hypoxia likely due to superimposed infection and underlying cancer. Acute respiratory failure with hypoxia and sepsis Due to pneumonia and underlying known metastatic cancer, question pneumonitis On high-flow nasal cannula at 76% FiO2/50 L Continue cefepime and vancomycin Continue IV steroids Pulmonary rec high-dose steroids indicated Oncology following Diarrhea Likely due to new chemotherapeutic agent Now resolved If recurrent we will check stool studies Hyponatremia Improving with fluids History of pulmonary embolism On Eliquis 5 b.i.d. Discussed with the patient, briefly, regarding goals of care. At this time he remains full code DVT prophylaxis, Eliquis Quality Stroke Does the patient have a stroke diagnosis?: No VTE Prior VTE?: No VTE Risk Level:: Medical - moderate - high VTE Device Contraindication: Treatment Not Indicated VTE Drug Contraindication: N/A - Med Ordered
[2024-07-18] MEDS: Milk of Magnesia 30 ML ORAL.SUSP PO (16:54)
[2024-07-18 20:18] LABS: Vancomycin Random 17.2 mcg/mL (15-20)
[2024-07-19] VITALS (13 sets, daily range): BP systolic 115–148; BP diastolic 67–79; PULSE 80–101; RESP 20; TEMP 36.1–37.6; O2SAT 90–100
[2024-07-19] MEDS: vancomycin HCL 1,250 MG in 0.9 % Sodium Chloride 250 ML 166.67 MG IV (06:20)
[2024-07-19] MEDS: methylPREDNISolone Sod Succ 125 MG/2 ML VIAL IVPUSH ×3 (06:20→22:01)
[2024-07-19] MEDS: Albuterol/Iprat 2.5/0.5MG 3 ML AMPUL.NEB INHALE ×4 (07:24→19:34)
[2024-07-19 07:29] LABS: Creatinine Clr Calc Pharmacy 127.2; Estimated Glomerular Filt Rate > 60
[2024-07-19] MEDS: Apixaban 5 MG TABLET PO ×2 (09:15→22:00)
[2024-07-19] MEDS: Sulfamethox/Trimeth 800/160 TABLET 2 TAB PO ×3 (09:15→22:00)
[2024-07-19] MEDS: cefEPime HCl/D5W 2 GM/50 ML PIGGYBACK IV ×2 (09:15→16:23)
[2024-07-19] MEDS: 0.9 % Sodium Chloride Flush 3 ML SYRINGE IVFLUSH ×3 (09:23→22:01)
--- NOTE | 2024-07-19 10:20 | HO.PM.IMPN ---
Subjective Subjective Date of Service: 07/19/24 Interval History: seen and examined this AM slowly better but still hypoxic with min exertion denies hemoptysis, frothy sputum denies pain reports no BM since hospitalization Review of Systems Negative except HPI/interval history. Physical Exam Vital Signs: Vital Signs: Last Vital Signs Temp 97.9 F 07/19/24 07:26 Pulse 95 07/19/24 07:26 Resp 20 07/19/24 07:26 BP 135/78 07/19/24 07:26 Pulse Ox 95 07/19/24 07:26 O2 Del Method High Flow Nasal C annula 07/19/24 07:26 O2 Flow Rate 35 07/19/24 07:26 FiO2 50 07/19/24 07:26 BMI result Body Mass Index 24.3 Const: Other: General - no acute distress, appears comfortable Cardiovascular - regular rate and rhythm, S1-S2 Lungs - comfortable at rest on HFNC (50%/35L); trace wheezing and scattered rales ; improving lung sounds overall Abdomen - soft, nontender, no rebound or guarding Extremities - no edema bilaterally Neuro - awake and alert, no focal deficits Objective Data Active Medications Acetaminophen (Acetaminophen 325 Mg Tablet) 650 mg PO Q6H PRN PRN Reason: Pain, Mild 1-3,fever,headache Last Admin: 07/17/24 11:46 Dose: 650 mg Documented By: JOSLYN Albuterol/Ipratropium (Albuterol/Iprat 2.5/0.5mg 3 Ml Ampul.Neb) 3 ml INHALE Q4H PRN PRN Reason: Wheezing Last Admin: 07/17/24 01:40 Dose: 3 ml Documented By: ANGELO Albuterol/Ipratropium (Albuterol/Iprat 2.5/0.5mg 3 Ml Ampul.Neb) 3 ml INHALE RQ4H WHILE AWAKE [facility] Last Admin: 07/19/24 07:24 Dose: 3 ml Documented By: REID Apixaban (Apixaban 5 Mg Tablet) 5 mg PO BID [facility] Last Admin: 07/19/24 09:15 Dose: 5 mg Documented By: LIUTEKJohn Calcium Carbonate (Calcium Carbonate 750 Mg Tab.Chew) 750 mg PO Q4H PRN PRN Reason: Heartburn Docusate Sodium (Docusate Sodium 100 Mg Capsule) 100 mg PO BEDTIME PRN PRN Reason: Constipation Last Admin: 07/18/24 08:28 Dose: 100 mg Documented By: WILLIAM Guaifenesin/Codeine Phosphate (Guaifen/Codeine Sf 200/20/10ml 10 Ml Liquid) 10 ml PO Q4H PRN PRN Reason: Cough Last Admin: 07/18/24 20:42 Dose: 10 ml Documented By: GIGI Cefepime HCl (Maxipime) 2 gm in 50 mls @ 100 mls/hr IV Q8H [facility] Last Infusion: 07/19/24 09:50 Dose: Infused Documented By: YAMINI Vancomycin HCl 1,250 mg/ (Sodium Chloride) 250 mls @ 166.667 mls/hr IV Q8H [facility] Last Infusion: 07/19/24 08:00 Dose: Infused Documented By: YAMINI Magnesium Hydroxide (Milk Of Magnesia 30 Ml Oral.Susp) 30 ml PO DAILY PRN PRN Reason: Constipation Last Admin: 07/18/24 16:54 Dose: 30 ml Documented By: WILLIAM Melatonin (Melatonin 3 Mg Tablet) 6 mg PO BEDTIME PRN PRN Reason: Insomnia Methylprednisolone Sodium Succinate (Methylprednisolone Sod Succ 125 Mg/2 Ml Vial) 125 mg IVPUSH Q8H [facility] Last Admin: 07/19/24 06:20 Dose: 125 mg Documented By: JUDI Ondansetron HCl (Ondansetron Hcl 4 Mg/2 Ml Vial) 4 mg IVPUSH Q8H PRN PRN Reason: Nausea and Vomiting Pharmacy Consult (Consult Rx Vancomycin Dosing) 1 each MISCELLANE DAILY PRN PRN Reason: Consult order Sodium Chloride (0.9 % Sodium Chloride Flush 3 Ml Syringe) 3 ml IVFLUSH QSHIFT [facility] Last Admin: 07/19/24 09:23 Dose: 3 ml Documented By: YAMINI Trimethoprim/Sulfamethoxazole (Sulfamethox/Trimeth 800/160 Tablet) 2 tab PO TID [facility] Last Admin: 07/19/24 09:15 Dose: 2 tab Documented By: YAMINI Labs 07/17/24 06:17 07/19/24 06:15 Labs: Laboratory Results - last 24 hr 01/01/25 01/01/25 01/02/25 09:50 19:50 06:15 Estim Creat Clear Calc 125.0 127.2 Estimated GFR > 60 > 60 Random Vancomycin 17.2 Assessment and Plan (1) Acute respiratory failure with hypoxia: Status: Acute (2) Sepsis: Status: Acute Plan 59-year-old male with a past medical history significant for metastatic colon cancer to the lung who presented to the emergency room with diarrhea, body aches, fevers and shortness of breath which began after he started a new chemotherapeutic regimen. His workup in the emergency room including CT scan and blood work was consistent with sepsis and acute respiratory failure with hypoxia likely due to superimposed infection and underlying cancer. Acute respiratory failure with hypoxia and sepsis Due to pneumonia and underlying known metastatic cancer, question pneumonitis On high-flow nasal cannula at 50%/35L today Continue cefepime and vancomycin + bactrim for pcp and atypical coverage Continue IV steroids - 125 q6h; possible taper once off HFNC Diarrhea followed by constipation Likely due to new chemotherapeutic agent Now resolved and more constipated If recurrent we will check stool studies Hyponatremia Improving with fluids repeat labs tomorrow History of pulmonary embolism On Eliquis 5 b.i.d. (initialy on 2.5mg BID due to interaction with cancer meds -- d/w Dr. Cox on 07/17 and changed to 5mg bid) Discussed with the patient, briefly, regarding goals of care. At this time he remains full code DVT prophylaxis, Eliquis Quality Stroke Does the patient have a stroke diagnosis?: No VTE Prior VTE?: No VTE Risk Level:: Medical - moderate - high VTE Device Contraindication: Treatment Not Indicated VTE Drug Contraindication: N/A - Med Ordered
[2024-07-19 12:17] LABS: Vancomycin Random 19.1 mcg/mL (15-20)
[2024-07-19] MEDS: Lactulose 20 GM/30 ML SOLUTION PO (12:18)
--- NOTE | 2024-07-19 12:56 | HE.PHANOTE ---
Vancomycin Trough 19.1. Adjusting dose to 1500 mg q12h to start 12 hours after his previous dose. next level on 07/20/23 @0600. creatinine stable
--- NOTE | 2024-07-19 14:43 | P.PNPL_ITS ---
Subjective Subjective Date of Service: 07/19/24 Interval history: The patient was seen and examined this morning. He is resting comfortably. High-flow was able to be decreased down to 50%. He primarily does mouth breathing therefore is not getting the full effects of the high-flow. Tolerating the high-dose steroids. Objective Data Labs 07/17/24 06:17 07/19/24 06:15 Labs: Laboratory Results - last 24 hr 07/18/24 07/19/24 07/19/24 19:50 06:15 11:51 Creatinine 0.59 Estim Creat Clear Calc 127.2 Estimated GFR > 60 Random Vancomycin 17.2 19.1 Microbiology Microbiology Results: Microbiology 07/15/24 20:46 Blood - Venous Blood Culture - Preliminary No growth after 48 hours. 07/15/24 20:44 Blood - Venous Blood Culture - Preliminary No growth after 48 hours. Review of Systems Constitutional: Denies body ache(s), Denies chills, Reports fatigue, Reports fever(s) and Denies headache(s) Eyes: Denies change in vision Denies headache(s), Denies nasal congestion, Denies nasal discharge and Denies sore throat Cardiovascular: Denies chest pain, Denies rapid heart rate, Denies lightheadedness and Reports dyspnea Respiratory: Denies chest congestion, Reports cough (chronic), Reports dyspnea and Denies wheezing Gastrointestinal: Denies melena, Denies hematochezia, Denies coffee ground emesis, Denies constipation, Reports diarrhea, Reports nausea and Denies vomiting Genitourinary: Denies dysuria, Denies urinary frequency and Denies urinary incontinence Musculoskeletal: Denies myalgias Skin/Breast: Reports rash (on chest since starting new chemo regimen, evaluated by Dr Cox already) Denies confusion and Denies headache(s) Psychiatric: Denies confusion Endocrine: Reports fatigue Hematologic/Lymphatic: Denies easy bleeding Allergic/Immunologic: Denies wheezing Physical Exam 2 Vital Signs: Vital Signs: Last Vital Signs Temp 97.0 F 07/19/24 11:07 Pulse 96 07/19/24 11:19 Resp 20 07/19/24 11:19 BP 120/75 07/19/24 11:07 Pulse Ox 90 L 07/19/24 11:07 O2 Del Method High Flow Nasal C annula 07/19/24 11:07 O2 Flow Rate 35 07/19/24 11:07 FiO2 50 07/19/24 11:07 BMI result Body Mass Index 24.3 Const: General: No confusion Nutritional Appearance: not obese O rientation/consciousness: No confusion HEENT: Head: Yes atraumatic Eyes: General: appearance normal, both eyes and all related structures S clerae: sclerae normal EOM: EOMs intact bilaterally Neck: Neck: Yes supple Lymphatic: no lymphadenopathy noted Chest: Chest palpation & inspection: normal inspection of the chest Resp: Effort & Inspection: normal respiratory effort, not labored and not tachypneic Auscultation: no rales, no wheezes and diminished lung sounds Cardio: Rate: regular rate Rhythm: regular rhythm Heart sounds: no gallops, no murmurs and no rubs Skin: General skin exam: other ( warm) Neuro: General: No confusion Extrem: General: No clubbing, No cyanosis and No edema Procedures Date of Service Date of Service: 07/19/24 Assessment and Plan Assessment and plan (1) Acute respiratory failure with hypoxia: Status: Acute (2) Pneumonia: Status: Acute (3) Pneumonitis: Status: Acute (4) Pulmonary nodules/lesions, multiple: Problem details: CT imaging is reviewed. Given the possibility of septic emboli versus metastatic disease, patient is transferred to the emergency department for CTA evaluation and laboratories. Status: Acute Plan consider switching to oxymask to keep pox>87% Continue broad spectrum abx continue high dose solumedrol, decrease tomorrow OOB ISS Guarded, poor prognosis Time Spent With Patient Time: Total time managing care of this patient today ____ minutes. Progress Note: Quality Stroke Does the patient have a stroke diagnosis?: No
[2024-07-19] MEDS: Acetaminophen 325 MG TABLET 650 MG PO (15:25)
[2024-07-19] MEDS: Milk of Magnesia 30 ML ORAL.SUSP PO (15:25)
[2024-07-19] MEDS: bisacodyL 10 MG SUPP.RECT PR (15:26)
--- NOTE | 2024-07-19 15:35 | PC.RT ---
Pt taken off HFNC and placed on allred NC. Pt on 6L SATs 94-96%. Pt comfortable at this time, will continue to titrate.
[2024-07-19] MEDS: vancomycin HCL 1,500 MG in 0.9 % Sodium Chloride 500 ML 333.33 MG IV (19:55)
[2024-07-19] MEDS: Simethicone 80 MG TAB.CHEW PO (22:01)
[2024-07-20] VITALS (13 sets, daily range): BP systolic 113–139; BP diastolic 69–82; PULSE 97–114; RESP 18–28; TEMP 36.1–36.8; O2SAT 93–99
[2024-07-20] MEDS: cefEPime HCl/D5W 2 GM/50 ML PIGGYBACK IV ×3 (00:16→16:26)
[2024-07-20] MEDS: methylPREDNISolone Sod Succ 125 MG/2 ML VIAL IVPUSH (05:34)
[2024-07-20 06:51] LABS: Hematocrit 36.3 % (42.0-52.0); Hemoglobin 12.2 g/dl (14.0-18.0); Mean Corpuscular HGB Conc 33.6 g/dl (31.0-36.0); Mean Corpuscular Hemoglobin 29.4 pg (27.0-33.0); Mean Corpuscular Volume 87.5 fL (80.0-98.0); Mean Platelet Volume 10.5 fL (9.4-12.4); NRBC Pct Auto 0.1 /100WBC (0.0-0.2); Platelet Count 279 X10*3/uL (160-400); Red Blood Count 4.15 X10*6/uL (4.60-5.80); Red Cell Distribution Width 14.7 % (11.0-16.0); White Blood Count 18.9 X10*3/uL (4.8-10.8)
[2024-07-20 07:06] LABS: Vancomycin Random 7.9 mcg/mL (15-20)
[2024-07-20 07:07] LABS: Alanine Aminotransferase 61 U/L (0-40); Albumin Level 3.2 g/dL (3.5-5.0); Alkaline Phosphatase 101 U/L (39-117); Anion Gap 12 (12-20); Aspartate Amino Transferase 58 U/L (5-37); Bilirubin Total 0.4 mg/dL (0.0-1.0); Blood Urea Nitrogen 27 mg/dL (9-16); Calcium 8.1 mg/dL (8.4-10.2); Carbon Dioxide 22 mmol/L (22-29); Chloride 106 mmol/L (96-108); Estimated Glomerular Filt Rate > 60; Glucose Random 198 mg/dL (60-115); Potassium 4.2 mmol/L (3.3-5.1); Sodium 136 mmol/L (135-145); Total Protein 6.1 g/dL (6.5-8.0)
--- NOTE | 2024-07-20 07:12 | HE.PHANOTE ---
CHRISTIAN Changing dose back to 1250g Q8H per subtherapeutic trough. Predicted AUC 540, predicted trough 13.6. Next trough to be drawn 07/21 @0600.
[2024-07-20] MEDS: Albuterol/Iprat 2.5/0.5MG 3 ML AMPUL.NEB INHALE ×4 (07:40→19:49)
--- NOTE | 2024-07-20 08:55 | MHC.CM.PN ---
Per [employer] Worker [employer]'s request, CM spoke with /HCP/Jayde @ [phone] and informed her that Patient is interested in having a Hospice Informational; is in agreement with this plan and a referral has been made to [facility].CM will follow.
[2024-07-20] MEDS: 0.9 % Sodium Chloride Flush 3 ML SYRINGE IVFLUSH ×3 (09:16→22:08)
[2024-07-20] MEDS: Apixaban 5 MG TABLET PO ×2 (09:16→22:08)
[2024-07-20] MEDS: Sulfamethox/Trimeth 800/160 TABLET 2 TAB PO ×3 (09:16→22:08)
[2024-07-20] MEDS: vancomycin HCL 1,250 MG in 0.9 % Sodium Chloride 250 ML 166.67 MG IV ×2 (09:16→16:26)
--- NOTE | 2024-07-20 11:25 | P.PNIM_ITS ---
Subjective Subjective Date of Service: 07/20/24 Interval History: seen and examined emotional this AM -- had goals of care discussion with Dr. Johns from pulmonary -- pt open to hospice informational reports feeling better but still hypoxic with min exertion Review of Systems Negative except HPI/interval history. Physical Exam 2 Vital Signs: Vital Signs: Last Vital Signs Temp 97.3 F 07/20/24 11:04 Pulse 108 H 07/20/24 11:04 Resp 20 07/20/24 11:04 BP 131/76 07/20/24 11:04 Pulse Ox 93 07/20/24 11:04 O2 Del Method Nasal Cannula 07/20/24 11:04 O2 Flow Rate 7 07/20/24 11:04 FiO2 50 07/19/24 15:07 BMI result Body Mass Index 24.3 Const: Other: General - no acute distress, appears comfortable Cardiovascular - regular rate and rhythm, S1-S2 Lungs - comfortable at rest on on 7-10L allred; wheezing today Abdomen - soft, nontender, no rebound or guarding Extremities - no edema bilaterally Neuro - awake and alert, no focal deficits Objective Data Active Medications Acetaminophen (Acetaminophen 325 Mg Tablet) 650 mg PO Q6H PRN PRN Reason: Pain, Mild 1-3,fever,headache Last Admin: 07/19/24 15:25 Dose: 650 mg Documented By: GIGI Albuterol/Ipratropium (Albuterol/Iprat 2.5/0.5mg 3 Ml Ampul.Neb) 3 ml INHALE Q4H PRN PRN Reason: Wheezing Last Admin: 07/17/24 01:40 Dose: 3 ml Documented By: ANGELO Albuterol/Ipratropium (Albuterol/Iprat 2.5/0.5mg 3 Ml Ampul.Neb) 3 ml INHALE RQ4H WHILE AWAKE [facility] Last Admin: 07/20/24 07:40 Dose: 3 ml Documented By: DANYEL Apixaban (Apixaban 5 Mg Tablet) 5 mg PO BID [facility] Last Admin: 07/20/24 09:16 Dose: 5 mg Documented By: SOLITARIO Calcium Carbonate (Calcium Carbonate 750 Mg Tab.Chew) 750 mg PO Q4H PRN PRN Reason: Heartburn Docusate Sodium (Docusate Sodium 100 Mg Capsule) 100 mg PO BEDTIME PRN PRN Reason: Constipation Last Admin: 07/18/24 08:28 Dose: 100 mg Documented By: WILLIAM Guaifenesin/Codeine Phosphate (Guaifen/Codeine Sf 200/20/10ml 10 Ml Liquid) 10 ml PO Q4H PRN PRN Reason: Cough Last Admin: 07/18/24 20:42 Dose: 10 ml Documented By: GIGI Cefepime HCl (Maxipime) 2 gm in 50 mls @ 100 mls/hr IV Q8H [facility] Last Infusion: 07/20/24 09:45 Dose: Infused Documented By: SOLITARIO Vancomycin HCl 1,250 mg/ (Sodium Chloride) 250 mls @ 166.667 mls/hr IV Q8H [facility] Last Infusion: 07/20/24 10:46 Dose: Infused Documented By: SOLITARIO Levalbuterol HCl (Levalbuterol Hcl 1.25 Mg/3 Ml Vial.Neb) 1.25 mg INHALE Q3H PRN PRN Reason: Wheezing Magnesium Hydroxide (Milk Of Magnesia 30 Ml Oral.Susp) 30 ml PO DAILY PRN PRN Reason: Constipation Last Admin: 07/19/24 15:25 Dose: 30 ml Documented By: GIGI Melatonin (Melatonin 3 Mg Tablet) 6 mg PO BEDTIME PRN PRN Reason: Insomnia Methylprednisolone Sodium Succinate (Methylprednisolone Sod Succ 125 Mg/2 Ml Vial) 60 mg IVPUSH Q8H [place] Ondansetron HCl (Ondansetron Hcl 4 Mg/2 Ml Vial) 4 mg IVPUSH Q8H PRN PRN Reason: Nausea and Vomiting Pharmacy Consult (Consult Rx Vancomycin Dosing) 1 each MISCELLANE DAILY PRN PRN Reason: Consult order Polyethylene Glycol (Polyethylene Glycol 3350 17 Gm Powd.Pack) 17 gm PO DAILY PRN PRN Reason: Constipation Simethicone (Simethicone 80 Mg Tab.Chew) 80 mg PO QIDWMHS PRN PRN Reason: Gas Last Admin: 07/19/24 22:01 Dose: 80 mg Documented By: JUDI Sodium Chloride (0.9 % Sodium Chloride Flush 3 Ml Syringe) 3 ml IVFLUSH QSHIFT [facility] Last Admin: 07/20/24 09:16 Dose: 3 ml Documented By: SOLITARIO Trimethoprim/Sulfamethoxazole (Sulfamethox/Trimeth 800/160 Tablet) 2 tab PO TID [place] Last Admin: 07/20/24 09:16 Dose: 2 tab Documented By: SOLITARIO Labs 07/20/24 06:20 07/20/24 06:21 Labs: Laboratory Results - last 24 hr 07/19/24 07/20/24 07/20/24 11:51 06:20 06:21 MCV 87.5 MCH 29.4 MCHC 33.6 RDW 14.7 Plt Count 279 D MPV 10.5 Absolute Nucleated RBC 0.020 H Nucleated RBC % (auto) 0.1 Anion Gap 12 Estim Creat Clear Calc Cancelled 123.0 Estimated GFR Cancelled > 60 Random Glucose 198 H Calcium 8.1 L Total Bilirubin 0.4 AST 58 H ALT 61 H Alkaline Phosphatase 101 Total Protein 6.1 L Albumin 3.2 L Random Vancomycin 19.1 7.9 L Assessment and Plan (1) Acute respiratory failure with hypoxia: Status: Acute (2) Sepsis: Status: Acute Plan 59-year-old male with a past medical history significant for metastatic colon cancer to the lung who presented to the emergency room with diarrhea, body aches, fevers and shortness of breath which began after he started a new chemotherapeutic regimen. His workup in the emergency room including CT scan and blood work was consistent with sepsis and acute respiratory failure with hypoxia likely due to superimposed infection and underlying cancer. Acute respiratory failure with hypoxia and sepsis Due to pneumonia and underlying known metastatic cancer, cannot rule out pneumonitis Weaned down to allred 7-10L Continue cefepime and vancomycin both day #5 today + bactrim - day #4 today for pcp and atypical coverage Decrease to 60mg q 8h Pulm input appreciated Hospice informational today Diarrhea followed by constipation Likely due to new chemotherapeutic agent Now resolved and more constipated bowel regiment Hyponatremia Improving with fluids repeat labs tomorrow History of pulmonary embolism On Eliquis 5 b.i.d. (initialy on 2.5mg BID due to interaction with cancer meds -- d/w Dr. Cox on 07/17 and changed to 5mg bid) Discussed with the patient, briefly, regarding goals of care. At this time he remains full code DVT prophylaxis, Eliquis Quality Stroke Does the patient have a stroke diagnosis?: No VTE Prior VTE?: No VTE Risk Level:: Medical - moderate - high VTE Device Contraindication: Treatment Not Indicated VTE Drug Contraindication: N/A - Med Ordered
--- NOTE | 2024-07-20 11:53 | MHC.CM.PN ---
Hospice Informational with [facility] is scheduled for noon today, with Patient and his . CM will follow.
[2024-07-20] MEDS: LORazepam 0.5 MG TABLET 0.25 MG PO (12:36)
[2024-07-20] MEDS: methylPREDNISolone Sod Succ 125 MG/2 ML VIAL 60 MG IVPUSH ×2 (12:37→22:07)
--- NOTE | 2024-07-20 12:39 | MHC.CM.PN ---
Per /HCP/Jayde's request, CM called the [facility] @ [phone] and spoke with Calista Zhu regarding an attempt to get Patient's Son/Jaime Dumas home to be with his Father and family as Patient likely transitions into Hospice care (he is deployed in the [employer] at [facility] [employer] in [place]). CM has given the case # ([id number] and Calista's contact information).WENDIE is discussing the possibility of GIP while [facility] authorization is attempted to be obtained. CM will follow.
--- NOTE | 2024-07-20 12:41 | PM.HEMONCPN ---
Medical Summary - Medical Summary Date of Service: 07/20/24 Chief complaint: Shortness of breath, weakness Primary Care Provider: Jr Quigley DO Medical Summary: Diagnosis: Metastatic colon cancer/sigmoid colon primary 12/2023 He developed symptoms of cough and shortness of breath around September 2023. He also noticed weight loss of over 40 lb secondary to loss of appetite in the last 6 months. Patient states that he has had worsening cough for which he was prescribed multiple rounds of antibiotics when he presented to walk-in centers. A chest x-ray in 11/05/2023 was abnormal, follow-up CT chest performed 12/02/2023 revealed innumerable pulmonary masses scattered throughout the lungs ranging in size from few mm to 2 cm in the left lower lobe. Marked bronchial wall thickening, normal mediastinum and no lymphadenopathy. He had absolutely no GI symptoms CT abdomen/pelvis shows no abnormalities of colon or lymphadenopathy in the abdomen. PET-CT performed at [facility] on 01/13/2024 showed multiple extensive abnormal FDG activity throughout bilateral lungs, a larger nodule in the left lung base measures 3 cm with SUV 4.73. Two areas of focal abnormal activity in the sigmoid colon with SUV 27 and intraluminal mass measuring 2.8 x 3.5 cm, 2nd lesion slightly inferior measuring 1.9 cm with SUV 10.41. Lytic lesion in left iliac bone with SUV 8.7, moderate metabolic activity in the right mid to distal femur corresponding to lytic lesion. Multiple bony metastatic lesions in the left scapula right femur and T8 vertebra. Initially, we discussed performing sigmoidoscopy/colonoscopy for additional tissue biopsy in case we did not have enough for NGS testing. However, all the molecular studies could be performed on lung biopsy specimen, therefore colonoscopy is being deferred. He started palliative chemotherapy with FOLFOX/Avastin in the first-line setting from 01/2024 along with zoledronic acid for bone metastasis. X-ray right femur revealed 2.4 cm lucency in the mid posterior femoral shaft. There is diffuse long segment sclerotic appearing periosteal/cortical thickening extending to subtrochanteric region. No definite cortical disruption identified. Interval History Interval history: Silverio Dumas is a 59 year old male who was diagnosed in November of this year with metastatic colorectal cancer. He has been receiving palliative chemotherapy, he is currently on second-line treatment with at aggressive with cetuximab. Unfortunately he progressed on first-line chemotherapy with FOLFOX/Avastin after 6 months of treatment. Patient's called yesterday saying that patient has been feeling extremely weak for last 3-4 days. He had developed diarrhea, poor appetite and was feeling lethargic last 2 days. They did not notice any fever or chills. No hematochezia or melena. Unfortunately, patient continued to decline. He he is on high-flow oxygen in spite of treatment with antibiotics and steroids. Patient's family was at the bedside. They are waiting to take him on hospice services. Review of Systems - Neurologic Denies confusion, Denies headache(s) [facility] Medical History: Medical History (Last Reviewed 07/17/24 @ 01:27 by Lillian Leal RN) Asthma Colon cancer metastasized to lung Pulmonary nodules/lesions, multiple Surgical History: Surgical History (Last Reviewed 07/17/24 @ 01:27 by Lillian Leal RN) History of lung biopsy Onset Date: ~12/2023 Social History: Social History (Last Reviewed 07/17/24 @ 01:27 by Lillian Leal RN) Living Situation History: Household Members: Spouse Housing: House Do you presently have visiting nurse or other home services: No Tobacco History: Patient Tobacco Use Status: Never used Tobacco Advance Directives: Advance Directives Date on File: 01/06/24 Occupation Assessmet: service: Yes Sex/Gender Assessment: Gender identity: Male Home Medications and Allergies Current Medications: Current Medications Acetaminophen (Acetaminophen 325 Mg Tablet) 650 mg PO Q6H PRN PRN Reason: Pain, Mild 1-3,fever,headache Last Admin: 07/19/24 15:25 Dose: 650 mg Albuterol/Ipratropium (Albuterol/Iprat 2.5/0.5mg 3 Ml Ampul.Neb) 3 ml INHALE Q4H PRN PRN Reason: Wheezing Last Admin: 07/17/24 01:40 Dose: 3 ml Albuterol/Ipratropium (Albuterol/Iprat 2.5/0.5mg 3 Ml Ampul.Neb) 3 ml INHALE RQ4H WHILE AWAKE [facility] Last Admin: 07/20/24 11:36 Dose: 3 ml Apixaban (Apixaban 5 Mg Tablet) 5 mg PO BID [facility] Last Admin: 07/20/24 09:16 Dose: 5 mg Calcium Carbonate (Calcium Carbonate 750 Mg Tab.Chew) 750 mg PO Q4H PRN PRN Reason: Heartburn Docusate Sodium (Docusate Sodium 100 Mg Capsule) 100 mg PO BEDTIME PRN PRN Reason: Constipation Last Admin: 07/18/24 08:28 Dose: 100 mg Guaifenesin/Codeine Phosphate (Guaifen/Codeine Sf 200/20/10ml 10 Ml Liquid) 10 ml PO Q4H PRN PRN Reason: Cough Last Admin: 07/18/24 20:42 Dose: 10 ml Cefepime HCl (Maxipime) 2 gm in 50 mls @ 100 mls/hr IV Q8H [facility] Last Infusion: 07/20/24 09:45 Dose: Infused Vancomycin HCl 1,250 mg/ (Sodium Chloride) 250 mls @ 166.667 mls/hr IV Q8H [facility] Last Infusion: 07/20/24 10:46 Dose: Infused Levalbuterol HCl (Levalbuterol Hcl 1.25 Mg/3 Ml Vial.Neb) 1.25 mg INHALE Q3H PRN PRN Reason: Wheezing Lorazepam (Lorazepam 0.5 Mg Tablet) 0.25 mg PO Q6H PRN PRN Reason: Anxiety Last Admin: 07/20/24 12:36 Dose: 0.25 mg Magnesium Hydroxide (Milk Of Magnesia 30 Ml Oral.Susp) 30 ml PO DAILY PRN PRN Reason: Constipation Last Admin: 07/19/24 15:25 Dose: 30 ml Melatonin (Melatonin 3 Mg Tablet) 6 mg PO BEDTIME PRN PRN Reason: Insomnia Methylprednisolone Sodium Succinate (Methylprednisolone Sod Succ 125 Mg/2 Ml Vial) 60 mg IVPUSH Q8H [facility] Last Admin: 07/20/24 12:37 Dose: 60 mg Ondansetron HCl (Ondansetron Hcl 4 Mg/2 Ml Vial) 4 mg IVPUSH Q8H PRN PRN Reason: Nausea and Vomiting Pharmacy Consult (Consult Rx Vancomycin Dosing) 1 each MISCELLANE DAILY PRN PRN Reason: Consult order Polyethylene Glycol (Polyethylene Glycol 3350 17 Gm Powd.Pack) 17 gm PO DAILY PRN PRN Reason: Constipation Simethicone (Simethicone 80 Mg Tab.Chew) 80 mg PO QIDWMHS PRN PRN Reason: Gas Last Admin: 01/02/25 22:01 Dose: 80 mg Sodium Chloride (0.9 % Sodium Chloride Flush 3 Ml Syringe) 3 ml IVFLUSH QSHIFT [facility] Last Admin: 07/20/24 09:16 Dose: 3 ml Trimethoprim/Sulfamethoxazole (Sulfamethox/Trimeth 800/160 Tablet) 2 tab PO TID [facility] Last Admin: 07/20/24 09:16 Dose: 2 tab Home Medications ?Medication ?Instructions ?Recorded ?Confirmed ?Type loratadine 10 mg tablet 10 mg PO DAILY 12/23/23 07/16/24 History dextromethorphan polistirex 30 10 ml PO Q12H PRN Cough 01/24/24 07/16/24 History mg/5 mL oral susp ext.release 12hr (Delsym 12 hour) acetaminophen 325 mg tablet 650 mg PO QID PRN Pain 07/16/24 07/16/24 History (Tylenol) apixaban 2.5 mg tablet (Eliquis) 2.5 mg PO BID 07/16/24 07/16/24 History loperamide 2 mg capsule 2 mg PO QID PRN Diarrhea 07/16/24 07/16/24 History Allergies Allergy/AdvReac Type Severity Reaction Status Date / Time shellfish derived Allergy Unknown Verified 07/15/24 20:07 onion AdvReac Unknown Verified 07/16/24 01:05 Exam Vital signs: Vital Signs Temp 97.3 F 07/20/24 11:04 Pulse 114 H 07/20/24 12:39 Resp 21 H 07/20/24 12:39 BP 131/76 07/20/24 11:04 Pulse Ox 98 07/20/24 12:39 O2 Del Method High Flow Nasal Cannula 07/20/24 12:39 O2 Flow Rate 48 07/20/24 12:39 FiO2 60 07/20/24 12:39 Intake & Output 07/19/24 07/20/24 07/20/24 18:59 06:59 18:59 Intake Total 470 / 1140 670 / 1140 300 / 300 Output Total 500 / 1000 500 / 1000 Balance -30 / 140 170 / 140 300 / 300 Urine Output (Average ml/kg/hr) 0.57 0.57 0.57 Intake: Intake, Oral Amount 120 / 240 120 / 240 Intake, IV Amount 350 / 900 550 / 900 300 / 300 cefEPime HCl/D5W 2 gm In 50 ml 100 / 150 50 / 150 50 / 50 @ 100 mls/hr IV Q8H [facility] Rx#: [id number] vancomycin HCL 1,250 mg In 0.9 250 / 250 250 / 250 % Sodium Chloride 250 ml @ 166. 667 mls/hr IV Q8H [facility] Rx#: [id number] vancomycin HCL 1,500 mg In 0.9 500 / 500 % Sodium Chloride 500 ml @ 333. 333 mls/hr IV Q12H [facility] Rx#: [id number] Output: Output, Urine Amount 500 / 1000 500 / 1000 Other: Number of Unmeasured Voids 1 3 Number of Bowel Movements 2 Urine Urinal Urinal Urine Color Yellow Tea Last Bowel Movement 07/15/24 08/15/24 Stool Bedside Commode Stool Amount Small Stool Color Brown Stool Consistency Soft Weight 72.575 kg BMI result Body Mass Index 24.3 - Constitutional Present: moderate distress, chronically ill appearing - Routine Respiratory Exam Present: accessory muscle use Data - Labs CBC & Chem 7: 07/20/24 06:20 07/20/24 06:21 Labs: Laboratory Last Values WBC 18.9 X10*3/uL (4.8-10.8) H 07/20/24 06:20 RBC 4.15 X10*6/uL (4.60-5.80) L 07/20/24 06:20 Hgb 12.2 g/dl (14.0-18.0) L 07/20/24 06:20 Hct 36.3 % (42.0-52.0) L 07/20/24 06:20 MCV 87.5 fL (80.0-98.0) 07/20/24 06:20 MCH 29.4 pg (27.0-33.0) 07/20/24 06:20 MCHC 33.6 g/dl (31.0-36.0) 07/20/24 06:20 RDW 14.7 % (11.0-16.0) 07/20/24 06:20 Plt Count 279 X10*3/uL (160-400) D 07/20/24 06:20 MPV 10.5 fL (9.4-12.4) 07/20/24 06:20 Immature Gran % (Auto) 0.4 % (0.0-0.4) 07/16/24 04:38 Neut % (Auto) 85.1 % (45-73) H 07/16/24 04:38 Lymph % (Auto) 4.7 % (20-40) L 07/16/24 04:38 Norton % (Auto) 9.3 % (2-11) 07/16/24 04:38 Eos % (Auto) 0.2 % (0-4) 07/16/24 04:38 Baso % (Auto) 0.3 % (0-2) 07/16/24 04:38 Lymph # (Auto) 0.6 X10*3/uL (1.2-4.9) L 07/16/24 04:38 Norton # (Auto) 1.2 X10*3/uL (0.1-1.2) 07/16/24 04:38 Eos # (Auto) 0.0 X10*3/uL (0.0-0.4) 07/16/24 04:38 Baso # (Auto) 0.0 X10*3/uL (0.0-0.2) 07/16/24 04:38 Abs Immat Gran (auto) 0.05 X10*3/uL (0.00-0.03) H 07/16/24 04:38 Absolute Neuts (auto) 10.6 x10*3/uL (2.0-8.3) H 07/16/24 04:38 Absolute Nucleated RBC 0.020 X10*3/uL (0.0-0.012) H 07/20/24 06:20 Nucleated RBC % (auto) 0.1 /100WBC (0.0-0.2) 07/20/24 06:20 Smear Tech's Comments VERIFIED 07/15/24 20:45 ESR 84 MM/HR (0-15) H 07/17/24 16:24 PT 16.5 SEC (10.9-12.4) H 07/15/24 20:45 INR 1.4 (0.9-1.1) H 07/15/24 20:45 VBG pH 7.50 (7.32-7.43) H 07/15/24 20:51 VBG pCO2 31 mmHg 07/15/24 20:51 VBG pO2 87 mmHg 07/15/24 20:51 VBG HCO3 24 mmol/L (22-26) 07/15/24 20:51 VBG O2 Saturation 98.0 % 07/15/24 20:51 VBG Base Excess 2.5 mmol/L 07/15/24 20:51 Sodium 136 mmol/L (135-145) 07/20/24 06:21 Potassium 4.2 mmol/L (3.3-5.1) 07/20/24 06:21 Chloride 106 mmol/L (96-108) 07/20/24 06:21 Carbon Dioxide 22 mmol/L (22-29) 07/20/24 06:21 Anion Gap 12 (12-20) 07/20/24 06:21 BUN 27 mg/dL (9-16) H 07/20/24 06:21 Creatinine 0.61 mg/dL (0.5-1.4) 07/20/24 06:21 Estim Creat Clear Calc 123.0 07/20/24 06:21 Estimated GFR > 60 07/20/24 06:21 Random Glucose 198 mg/dL (60-115) H 07/20/24 06:21 Lactic Acid 1.7 mmol/L (0.5-2.0) 07/15/24 20:46 Calcium 8.1 mg/dL (8.4-10.2) L 07/20/24 06:21 Magnesium 2.1 mg/dL (1.6-2.6) 07/15/24 20:45 Total Bilirubin 0.4 mg/dL (0.0-1.0) 07/20/24 06:21 AST 58 U/L (5-37) H 07/20/24 06:21 ALT 61 U/L (0-40) H 07/20/24 06:21 Alkaline Phosphatase 101 U/L (39-117) 07/20/24 06:21 Lactate Dehydrogenase 298 U/L (118-273) H 07/17/24 16:24 Total Creatine Kinase 36 U/L (38-174) L 07/15/24 20:45 B-Natriuretic Peptide 33 pg/mL (<100) 07/15/24 20:45 Total Protein 6.1 g/dL (6.5-8.0) L 07/20/24 06:21 Albumin 3.2 g/dL (3.5-5.0) L 07/20/24 06:21 Lipase 16 U/L (8-78) 07/15/24 20:45 Procalcitonin 0.19 ng/mL 07/17/24 16:24 Urine Color Yellow 07/15/24 23:20 Urine Appearance Clear 07/15/24 23:20 Urine pH 6.0 (5.0-9.0) 07/15/24 23:20 Ur Specific Caspian 1.015 (1.005-1.025) 07/15/24 23:20 Urine Protein 30 (1+) mg/dL (Neg-Trace) H 07/15/24 23:20 Urine Glucose (UA) Negative mg/dL (Negative) 07/15/24 23:20 Urine Ketones Negative mg/dL (Negative) 07/15/24 23:20 Urine Blood Negative (Negative) 07/15/24 23:20 Urine Nitrite Negative (Negative) 07/15/24 23:20 Ur Leukocyte Esterase Negative (Negative) 07/15/24 23:20 Urine RBC 0-2 /HPF (0-2) 07/15/24 23:20 Urine WBC 0-5 /HPF (0-5) 07/15/24 23:20 Ur Squamous Epith Cells 6-10 /HPF (0-2) 07/15/24 23:20 Urine Bacteria None Seen (None Seen) 07/15/24 23:20 Hyaline Casts 0-2 /LPF (0-2) 07/15/24 23:20 Random Vancomycin 7.9 mcg/mL (15-20) L 07/20/24 06:21 Respiratory Panel Jason See Note 07/17/24 14:12 Adenovirus (Rapid PCR) Not Detected (Not Detect.) 07/17/24 14:12 B.pert (TEM-PCR) Not Detected (Not Detect.) 07/17/24 14:12 B.parapertussis DNA PCR Not Detected (Not Detect.) 07/17/24 14:12 C. pneumoniae DNA (PCR) Not Detected (Not Detect.) 07/17/24 14:12 Coronavirus OC43 (PCR) Not Detected (Not Detect.) 07/17/24 14:12 Coronavirus HKU1 (PCR) Not Detected (Not Detect.) 07/17/24 14:12 Coronavirus 229E (PCR) Not Detected (Not Detect.) 07/17/24 14:12 Coronavirus NL63 (PCR) Not Detected (Not Detect.) 07/17/24 14:12 Human Metapneumovir PCR Not Detected (Not Detect.) 07/17/24 14:12 Influenza A (RT-PCR) Not Detected (Not Detect.) 07/17/24 14:12 Influenza Type A (PCR) NEGATIVE (Negative) 07/15/24 20:44 Influenza B (RT-PCR) Not Detected (Not Detect.) 07/17/24 14:12 Influenza Type B (PCR) NEGATIVE (Negative) 07/15/24 20:44 M. pneumoniae (PCR) Not Detected (Not Detect.) 07/17/24 14:12 Parainfluenza 1 (PCR) Not Detected (Not Detect.) 07/17/24 14:12 Parainfluenza 2 (PCR) Not Detected (Not Detect.) 07/17/24 14:12 Parainfluenza 3 (PCR) Not Detected (Not Detect.) 07/17/24 14:12 Parainfluenza 4 (PCR) Not Detected (Not Detect.) 07/17/24 14:12 RSV (PCR) Not Detected (Not Detect.) 07/17/24 14:12 RSV RNA Qual (PCR) NEGATIVE (Negative) 07/15/24 20:44 Entero/Rhino (PCR) Not Detected (Not Detect.) 07/17/24 14:12 SARS-CoV-2 RNA (RT-PCR) Not Detected (Not Detect.) 07/17/24 14:12 Assessment and Plan Patient Active problem list reviewed?: Yes (1) Colon cancer metastasized to lung Status: Chronic Assessment and plan: 1. This is a 59-year-old male who has been diagnosed with metastatic colorectal cancer diagnosed in 12/05/2023 who is now admitted for progressive weakness along with shortness of breath and diarrhea. Workup in the ER, CT chest/abdomen and pelvis with contrast showed severe airspace disease with known pulmonary carcinomatosis, superimposed edema and pneumonitis also considered. Left scapula osseous metastasis. In the abdomen there was evidence of gastroenteritis, fluid enlargement is time, mild colitis, no bowel obstruction. Redemonstration of multifocal osseous metastasis. He initially received chemotherapy with FOLFOX/Avastin in the first-line setting from 01/2024 to 06/10. Zoledronic acid for bone metastasis. Unfortunately he developed progressive disease based on imaging in May. He started Adagrasib 600 p.o. b.i.d. with cetuximab in the second-line setting from 07/03/2024. Events of last few days noted. Patient has progressive respiratory failure secondary to combination of lymphangitic spread of tumor, probable pneumonia, underlying pulmonary emboli as well as probable pneumonitis. He has not responded to high-dose steroids. Appreciate recommendations from Pulmonary and hospitalist team. He has been evaluated by hospice care, unfortunately because of high oxygen requirements, he is not able to go home. I met with patient, his and 3 children at the bedside. They are all in agreement with above recommendation. Patient understands that prognosis is very poor and is eminent. - Time Spent With Patient Time Spent with Patient (in minutes): 10
--- NOTE | 2024-07-20 12:44 | P.PNPL_ITS ---
Subjective Subjective Date of Service: 07/20/24 Interval history: Seen and examined. The patient was transitioned to nasal cannula requiring between 7-11 L. still desaturating. Still short of breath. We did talk about the significant comorbidities. My recommendation was to consider going home on hospice whenever we can get his oxygen down to a reasonable level. He is still on high-dose steroids for likely drug-induced pneumonitis on top of his very aggressive metastatic colon cancer to the lungs both with hematogenous spread and lymphangitic carcinomatosis based on the imaging. Patient carries a very poor prognosis. Explained to him that if there is a window of opportunity to get him home on hospice the [facility] a very good option if he does agree to that. Objective Data Labs 07/20/24 06:20 07/20/24 06:21 Labs: Laboratory Results - last 24 hr 07/20/24 07/20/24 06:20 06:21 WBC 18.9 H RBC 4.15 L Hgb 12.2 L Hct 36.3 L MCV 87.5 MCH 29.4 MCHC 33.6 RDW 14.7 Plt Count 279 D MPV 10.5 Absolute Nucleated RBC 0.020 H Nucleated RBC % (auto) 0.1 Sodium 136 Potassium 4.2 Chloride 106 Carbon Dioxide 22 Anion Gap 12 BUN 27 H Creatinine Cancelled 0.61 Estim Creat Clear Calc Cancelled 123.0 Estimated GFR Cancelled > 60 Random Glucose 198 H Calcium 8.1 L Total Bilirubin 0.4 AST 58 H ALT 61 H Alkaline Phosphatase 101 Total Protein 6.1 L Albumin 3.2 L Random Vancomycin 7.9 L Microbiology Microbiology Results: Microbiology 07/15/24 20:46 Blood - Venous Blood Culture - Preliminary No growth after 48 hours. 07/15/24 20:44 Blood - Venous Blood Culture - Preliminary No growth after 48 hours. Review of Systems Constitutional: Denies body ache(s), Denies chills, Reports fatigue, Reports fever(s) and Denies headache(s) Eyes: Denies change in vision Denies headache(s), Denies nasal congestion, Denies nasal discharge and Denies sore throat Cardiovascular: Denies chest pain, Denies rapid heart rate, Denies lightheadedness and Reports dyspnea Respiratory: Denies chest congestion, Reports cough (chronic), Reports dyspnea and Denies wheezing Gastrointestinal: Denies melena, Denies hematochezia, Denies coffee ground emesis, Denies constipation, Reports diarrhea, Reports nausea and Denies vomiting Genitourinary: Denies dysuria, Denies urinary frequency and Denies urinary incontinence Musculoskeletal: Denies myalgias Skin/Breast: Reports rash (on chest since starting new chemo regimen, evaluated by Dr Cox already) Denies confusion and Denies headache(s) Psychiatric: Denies confusion Endocrine: Reports fatigue Hematologic/Lymphatic: Denies easy bleeding Allergic/Immunologic: Denies wheezing Physical Exam 2 Vital Signs: Vital Signs: Last Vital Signs Temp 97.3 F 07/20/24 11:04 Pulse 114 H 07/20/24 12:39 Resp 21 H 07/20/24 12:39 BP 131/76 07/20/24 11:04 Pulse Ox 98 07/20/24 12:39 O2 Del Method High Flow Nasal C annula 07/20/24 12:39 O2 Flow Rate 48 07/20/24 12:39 FiO2 60 07/20/24 12:39 BMI result Body Mass Index 24.3 Const: General: No confusion Nutritional Appearance: not obese O rientation/consciousness: No confusion HEENT: Head: Yes atraumatic Eyes: General: appearance normal, both eyes and all related structures S clerae: sclerae normal EOM: EOMs intact bilaterally Neck: Neck: Yes supple Lymphatic: no lymphadenopathy noted Chest: Chest palpation & inspection: normal inspection of the chest Resp: Effort & Inspection: normal respiratory effort, not labored and not tachypneic Auscultation: no rales, no wheezes and diminished lung sounds Cardio: Rate: regular rate Rhythm: regular rhythm Heart sounds: no gallops, no murmurs and no rubs Skin: General skin exam: other ( warm) Neuro: General: No confusion Extrem: General: No clubbing, No cyanosis and No edema Procedures Date of Service Date of Service: 07/20/24 Assessment and Plan Assessment and plan (1) Acute respiratory failure with hypoxia: Status: Acute (2) Pneumonia: Status: Acute (3) Pneumonitis: Status: Acute (4) Pulmonary nodules/lesions, multiple: Problem details: CT imaging is reviewed. Given the possibility of septic emboli versus metastatic disease, patient is transferred to the emergency department for CTA evaluation and laboratories. Status: Acute Plan transition to oxymask or oximizer pendant to keep pox>86% Continue broad spectrum abx continue high dose solumedrol, decrease OOB ISS Guarded, poor prognosis Would benefit from Hospice if we can get his oxygen requierements to be less than 10L/min Time Spent With Patient Time: Total time managing care of this patient today ____ minutes. Progress Note: Quality Stroke Does the patient have a stroke diagnosis?: No
--- NOTE | 2024-07-20 13:32 | MHC.CM.PN ---
Per [facility], they are reaching out to [facility] to see if they will cover the GIP services.CM will follow.
[2024-07-20] MEDS: ondansetron HCL 4 MG/2 ML VIAL IVPUSH (16:28)
[2024-07-21] VITALS (13 sets, daily range): BP systolic 119–135; BP diastolic 72–85; PULSE 82–108; RESP 16–24; TEMP 36.2–36.9; O2SAT 91–100
[2024-07-21] MEDS: vancomycin HCL 1,250 MG in 0.9 % Sodium Chloride 250 ML 166.67 MG IV ×3 (00:54→16:10)
[2024-07-21] MEDS: cefEPime HCl/D5W 2 GM/50 ML PIGGYBACK IV ×4 (02:22→23:24)
[2024-07-21] MEDS: methylPREDNISolone Sod Succ 125 MG/2 ML VIAL 60 MG IVPUSH ×3 (04:03→22:01)
[2024-07-21] MEDS: ondansetron HCL 4 MG/2 ML VIAL IVPUSH ×2 (04:03→23:25)
[2024-07-21] MEDS: guaiFEN/Codeine SF 200/20/10ML 10 ML LIQUID PO (04:16)
[2024-07-21 07:11] LABS: Creatinine Clr Calc Pharmacy 131.6; Estimated Glomerular Filt Rate > 60
[2024-07-21 07:14] LABS: Vancomycin Random 16.8 mcg/mL (15-20)
[2024-07-21] MEDS: Albuterol/Iprat 2.5/0.5MG 3 ML AMPUL.NEB INHALE ×4 (07:31→19:14)
--- NOTE | 2024-07-21 07:40 | HE.PHANOTE ---
VANCO DOSE ADJUSTMENT BASED ON SCR AND TROUGH OF 16.8 DOSE CONTINUED AT 1250 Q8H. NEXT LEVEL 07/22 @ 0600
[2024-07-21] MEDS: Milk of Magnesia 30 ML ORAL.SUSP PO (09:23)
[2024-07-21] MEDS: Sulfamethox/Trimeth 800/160 TABLET 2 TAB PO ×2 (09:23→14:19)
[2024-07-21] MEDS: Apixaban 5 MG TABLET PO ×2 (09:23→23:24)
[2024-07-21] MEDS: 0.9 % Sodium Chloride Flush 3 ML SYRINGE IVFLUSH ×2 (09:24→14:21)
--- NOTE | 2024-07-21 09:42 | HO.PM.IMPN ---
Subjective Subjective Date of Service: 07/21/24 Interval History: seen and examined reports feeling better but still hypoxic with min exertion Review of Systems Negative except HPI/interval history. Physical Exam Vital Signs: Vital Signs: Last Vital Signs Temp 98.5 F 07/21/24 08:00 Pulse 105 H 07/21/24 08:00 Resp 20 07/21/24 08:00 BP 129/77 07/21/24 08:00 Pulse Ox 100 07/21/24 08:00 O2 Del Method High Flow Nasal C annula 07/21/24 08:00 O2 Flow Rate 7 07/21/24 08:00 FiO2 60 07/20/24 12:39 BMI result Body Mass Index 24.3 Appearing in no acute distress lung sounds diminished heart regular rate rhythm, clear S1, S2 positive bowel sounds, abdomen is soft, nontender neuro patient is alert x3, no focal deficits Objective Data Active Medications Acetaminophen (Acetaminophen 325 Mg Tablet) 650 mg PO Q6H PRN PRN Reason: Pain, Mild 1-3,fever,headache Last Admin: 07/19/24 15:25 Dose: 650 mg Documented By: GIGI Albuterol/Ipratropium (Albuterol/Iprat 2.5/0.5mg 3 Ml Ampul.Neb) 3 ml INHALE Q4H PRN PRN Reason: Wheezing Last Admin: 07/17/24 01:40 Dose: 3 ml Documented By: ANGELO Albuterol/Ipratropium (Albuterol/Iprat 2.5/0.5mg 3 Ml Ampul.Neb) 3 ml INHALE RQ4H WHILE AWAKE [facility] Last Admin: 07/21/24 07:31 Dose: 3 ml Documented By: DANYEL Comments: scanner not working Apixaban (Apixaban 5 Mg Tablet) 5 mg PO BID [facility] Last Admin: 07/21/24 09:23 Dose: 5 mg Documented By: SOLITARIO Calcium Carbonate (Calcium Carbonate 750 Mg Tab.Chew) 750 mg PO Q4H PRN PRN Reason: Heartburn Docusate Sodium (Docusate Sodium 100 Mg Capsule) 100 mg PO BEDTIME PRN PRN Reason: Constipation Last Admin: 07/18/24 08:28 Dose: 100 mg Documented By: WILLIAM Guaifenesin/Codeine Phosphate (Guaifen/Codeine Sf 200/20/10ml 10 Ml Liquid) 10 ml PO Q4H PRN PRN Reason: Cough Last Admin: 07/21/24 04:16 Dose: 10 ml Documented By: JARRETT Comments: requested for persistent cough Cefepime HCl (Maxipime) 2 gm in 50 mls @ 100 mls/hr IV Q8H [facility] Last Admin: 07/21/24 09:24 Dose: 100 mls/hr Documented By: SOLITARIO Vancomycin HCl 1,250 mg/ (Sodium Chloride) 250 mls @ 166.667 mls/hr IV Q8H [facility] Last Admin: 07/21/24 09:23 Dose: 166.67 mls/hr Documented By: SOLITARIO Levalbuterol HCl (Levalbuterol Hcl 1.25 Mg/3 Ml Vial.Neb) 1.25 mg INHALE Q3H PRN PRN Reason: Wheezing Lorazepam (Lorazepam 0.5 Mg Tablet) 0.5 mg PO Q6H PRN PRN Reason: Anxiety Magnesium Hydroxide (Milk Of Magnesia 30 Ml Oral.Susp) 30 ml PO DAILY PRN PRN Reason: Constipation Last Admin: 07/21/24 09:23 Dose: 30 ml Documented By: SOLITARIO Melatonin (Melatonin 3 Mg Tablet) 6 mg PO BEDTIME PRN PRN Reason: Insomnia Methylprednisolone Sodium Succinate (Methylprednisolone Sod Succ 125 Mg/2 Ml Vial) 60 mg IVPUSH Q8H [facility] Last Admin: 07/21/24 04:03 Dose: 60 mg Documented By: JARRETT Morphine Sulfate (Morphine Sulfate 2 Mg/Ml Cartridge) 2 mg IVPUSH Q4H PRN; Protocol PRN Reason: respiratory distress Ondansetron HCl (Ondansetron Hcl 4 Mg/2 Ml Vial) 4 mg IVPUSH Q8H PRN PRN Reason: Nausea and Vomiting Last Admin: 07/21/24 04:03 Dose: 4 mg Documented By: JARRETT Comments: requested for Nausea Pharmacy Consult (Consult Rx Vancomycin Dosing) 1 each MISCELLANE DAILY PRN PRN Reason: Consult order Polyethylene Glycol (Polyethylene Glycol 3350 17 Gm Powd.Pack) 17 gm PO DAILY PRN PRN Reason: Constipation Simethicone (Simethicone 80 Mg Tab.Chew) 80 mg PO QIDWMHS PRN PRN Reason: Gas Last Admin: 07/19/24 22:01 Dose: 80 mg Documented By: JUDI Sodium Chloride (0.9 % Sodium Chloride Flush 3 Ml Syringe) 3 ml IVFLUSH QSHIFT [facility] Last Admin: 07/21/24 09:24 Dose: 3 ml Documented By: SOLITARIO Trimethoprim/Sulfamethoxazole (Sulfamethox/Trimeth 800/160 Tablet) 2 tab PO TID [facility] Last Admin: 07/21/24 09:23 Dose: 2 tab Documented By: SOLITARIO Labs 07/20/24 06:20 07/21/24 06:13 Labs: Laboratory Results - last 24 hr 07/21/24 07/21/24 06:13 06:48 Hold Purple Top SEE NOTE Estim Creat Clear Calc 131.6 Estimated GFR > 60 Random Vancomycin 16.8 Microbiology Microbiology Results: Microbiology 07/15/24 20:46 Blood Culture - Final Blood - Venous No growth after 5 days. 07/15/24 20:44 Blood Culture - Final Blood - Venous No growth after 5 days. Assessment and Plan (1) Acute respiratory failure with hypoxia: Status: Acute (2) Sepsis: Status: Acute Plan 59-year-old male with a past medical history significant for metastatic colon cancer to the lung who presented to the emergency room with diarrhea, body aches, fevers and shortness of breath which began after he started a new chemotherapeutic regimen. His workup in the emergency room including CT scan and blood work was consistent with sepsis and acute respiratory failure with hypoxia likely due to superimposed infection and underlying cancer. Acute respiratory failure with hypoxia and sepsis Due to pneumonia and underlying known metastatic cancer, cannot rule out pneumonitis Weaned down to allred 7-10L but now back on high flow 50%, 30L Continue cefepime and vancomycin, bactrim for pcp and atypical coverage solumedrol 60mg q 8h Pulm input appreciated Hospice informational 07/20/24 Diarrhea followed by constipation Likely due to new chemotherapeutic agent Now resolved but more constipated Bowel regimen Hyponatremia. Resolved Improved with fluids History of pulmonary embolism On Eliquis 5 b.i.d. (initialy on 2.5mg BID due to interaction with cancer meds -- d/w Dr. Cox on 07/17 and changed to 5mg bid) Discussed with the patient, briefly, regarding goals of care. At this time he remains full code DVT prophylaxis, Eliqu Quality Stroke Does the patient have a stroke diagnosis?: No VTE Prior VTE?: No VTE Risk Level:: Medical - moderate - high VTE Device Contraindication: Treatment Not Indicated VTE Drug Contraindication: N/A - Med Ordered
[2024-07-21] MEDS: LORazepam 0.5 MG TABLET PO (14:19)
[2024-07-21] MEDS: bisacodyL 10 MG SUPP.RECT PR (14:19)
[2024-07-21] MEDS: Simethicone 80 MG TAB.CHEW PO (22:01)
[2024-07-21] MEDS: Sodium Phosphate,Mono-Dibasic 133 ML ENEMA PR (22:25)
[2024-07-21] MEDS: Docusate Sodium 100 MG CAPSULE PO (23:24)
[2024-07-21] MEDS: Morphine Sulfate 2 MG/ML CARTRIDGE IVPUSH (23:25)
[2024-07-22] VITALS (13 sets, daily range): BP systolic 133–151; BP diastolic 77–93; PULSE 95–110; RESP 16–24; TEMP 36.3–36.8; O2SAT 90–95
[2024-07-22] MEDS: vancomycin HCL 1,250 MG in 0.9 % Sodium Chloride 250 ML 166.67 MG IV (00:24)
[2024-07-22] MEDS: 0.9 % Sodium Chloride Flush 3 ML SYRINGE IVFLUSH ×4 (00:24→23:27)
[2024-07-22] MEDS: Milk of Magnesia 30 ML ORAL.SUSP PO (05:28)
[2024-07-22] MEDS: methylPREDNISolone Sod Succ 125 MG/2 ML VIAL 60 MG IVPUSH ×3 (05:29→21:16)
[2024-07-22 06:39] LABS: Vancomycin Trough 21.8 mcg/mL (10.0-20.0)
[2024-07-22 06:40] LABS: Estimated Glomerular Filt Rate > 60
--- NOTE | 2024-07-22 07:18 | HE.PHANOTE ---
VANCO DOSE ADJUSTMENT TROUGH OF 21.8 5 HOURS AFTER DOSE. WOULD BE IN RANGE IF TRUE TROUGH. DOSE STILL DECREASED TO 1750 Q 12H ITS ON THE HIGHER SIDE
[2024-07-22] MEDS: Albuterol/Iprat 2.5/0.5MG 3 ML AMPUL.NEB INHALE ×4 (07:37→20:46)
[2024-07-22] MEDS: cefEPime HCl/D5W 2 GM/50 ML PIGGYBACK IV ×2 (09:18→15:59)
[2024-07-22] MEDS: polyethylene glycoL 3350 17 GM POWD.PACK PO (09:19)
[2024-07-22] MEDS: Apixaban 5 MG TABLET PO ×2 (09:19→21:16)
[2024-07-22] MEDS: Sulfamethox/Trimeth 800/160 TABLET 2 TAB PO ×3 (09:19→21:16)
[2024-07-22] MEDS: Simethicone 80 MG TAB.CHEW PO (09:23)
--- NOTE | 2024-07-22 11:00 | HO.PM.IMPN ---
Subjective Subjective Date of Service: 07/22/24 Interval History: seen and examined reports feeling better but still hypoxic with min exertion Review of Systems Negative except HPI/interval history. Physical Exam Vital Signs: Vital Signs: Last Vital Signs Temp 98.1 F 07/22/24 07:50 Pulse 95 07/22/24 07:50 Resp 20 07/22/24 07:50 BP 151/87 H 07/22/24 07:50 Pulse Ox 94 07/22/24 07:50 O2 Del Method High Flow Nasal C annula 07/22/24 07:50 O2 Flow Rate 40 07/22/24 07:50 FiO2 50 07/22/24 07:50 BMI result Body Mass Index 24.3 Appearing in no acute distress lung sounds are clear to auscultation heart regular rate rhythm, clear S1, S2 positive bowel sounds, abdomen is soft, nontender neuro patient is alert x3, no focal deficits High flow Objective Data Active Medications Acetaminophen (Acetaminophen 325 Mg Tablet) 650 mg PO Q6H PRN PRN Reason: Pain, Mild 1-3,fever,headache Last Admin: 07/19/24 15:25 Dose: 650 mg Documented By: IGGI Albuterol/Ipratropium (Albuterol/Iprat 2.5/0.5mg 3 Ml Ampul.Neb) 3 ml INHALE Q4H PRN PRN Reason: Wheezing Last Admin: 07/17/24 01:40 Dose: 3 ml Documented By: ANGELO Albuterol/Ipratropium (Albuterol/Iprat 2.5/0.5mg 3 Ml Ampul.Neb) 3 ml INHALE RQ4H WHILE AWAKE [facility] Last Admin: 07/22/24 07:37 Dose: 3 ml Documented By: LAURI Apixaban (Apixaban 5 Mg Tablet) 5 mg PO BID [facility] Last Admin: 07/22/24 09:19 Dose: 5 mg Documented By: SOLITARIO Calcium Carbonate (Calcium Carbonate 750 Mg Tab.Chew) 750 mg PO Q4H PRN PRN Reason: Heartburn Docusate Sodium (Docusate Sodium 100 Mg Capsule) 100 mg PO BEDTIME PRN PRN Reason: Constipation Last Admin: 07/21/24 23:24 Dose: 100 mg Documented By: JARRETT Cefepime HCl (Maxipime) 2 gm in 50 mls @ 100 mls/hr IV Q8H [facility] Last Infusion: 07/22/24 09:48 Dose: Infused Documented By: SOLITARIO Vancomycin HCl 1,000 mg/Vancomycin HCl 750 mg/ Sodium Chloride 535 mls @ 267.5 mls/hr IV Q12H [facility] Levalbuterol HCl (Levalbuterol Hcl 1.25 Mg/3 Ml Vial.Neb) 1.25 mg INHALE Q3H PRN PRN Reason: Wheezing Lorazepam (Lorazepam 0.5 Mg Tablet) 0.5 mg PO Q6H PRN PRN Reason: Anxiety Last Admin: 07/21/24 14:19 Dose: 0.5 mg Documented By: SOLITARIO Magnesium Hydroxide (Milk Of Magnesia 30 Ml Oral.Susp) 30 ml PO DAILY PRN PRN Reason: Constipation Last Admin: 07/22/24 05:28 Dose: 30 ml Documented By: JARRETT Melatonin (Melatonin 3 Mg Tablet) 6 mg PO BEDTIME PRN PRN Reason: Insomnia Methylprednisolone Sodium Succinate (Methylprednisolone Sod Succ 125 Mg/2 Ml Vial) 60 mg IVPUSH Q8H [facility] Last Admin: 07/22/24 05:29 Dose: 60 mg Documented By: JARRETT Morphine Sulfate (Morphine Sulfate 2 Mg/Ml Cartridge) 2 mg IVPUSH Q4H PRN; Protocol PRN Reason: respiratory distress Last Admin: 07/21/24 23:25 Dose: 2 mg Documented By: JARRETT Ondansetron HCl (Ondansetron Hcl 4 Mg/2 Ml Vial) 4 mg IVPUSH Q8H PRN PRN Reason: Nausea and Vomiting Last Admin: 07/21/24 23:25 Dose: 4 mg Documented By: JARRETT Pharmacy Consult (Consult Rx Vancomycin Dosing) 1 each MISCELLANE DAILY PRN PRN Reason: Consult order Polyethylene Glycol (Polyethylene Glycol 3350 17 Gm Powd.Pack) 17 gm PO DAILY PRN PRN Reason: Constipation Last Admin: 07/22/24 09:19 Dose: 17 gm Documented By: SOLITARIO Simethicone (Simethicone 80 Mg Tab.Chew) 80 mg PO QIDWMHS PRN PRN Reason: Gas Last Admin: 07/22/24 09:23 Dose: 80 mg Documented By: SOLITARIO Sodium Chloride (0.9 % Sodium Chloride Flush 3 Ml Syringe) 3 ml IVFLUSH QSHIFT [facility] Last Admin: 07/22/24 09:19 Dose: 3 ml Documented By: SOLITARIO Trimethoprim/Sulfamethoxazole (Sulfamethox/Trimeth 800/160 Tablet) 2 tab PO TID [facility] Last Admin: 07/22/24 09:19 Dose: 2 tab Documented By: SOLITARIO Labs 07/20/24 06:20 07/22/24 05:40 Labs: Laboratory Results - last 24 hr 07/22/24 05:40 Hold Purple Top SEE NOTE Estim Creat Clear Calc 125.0 Estimated GFR > 60 Vancomycin Trough 21.8 H Assessment and Plan (1) Acute respiratory failure with hypoxia: Status: Acute (2) Sepsis: Status: Acute Plan 59-year-old male with a past medical history significant for metastatic colon cancer to the lung who presented to the emergency room with diarrhea, body aches, fevers and shortness of breath which began after he started a new chemotherapeutic regimen. His workup in the emergency room including CT scan and blood work was consistent with sepsis and acute respiratory failure with hypoxia likely due to superimposed infection and underlying cancer. Acute respiratory failure with hypoxia and sepsis Due to pneumonia and underlying known metastatic cancer, cannot rule out pneumonitis on high flow 50%, 30L Continue cefepime and vancomycin, bactrim for pcp and atypical coverage solumedrol 60mg q 8h Pulm input appreciated Hospice informational 07/20/24 Diarrhea followed by constipation Likely due to new chemotherapeutic agent Now resolved but more constipated Bowel regimen Hyponatremia. Resolved Improved with fluids History of pulmonary embolism On Eliquis 5 b.i.d. (initialy on 2.5mg BID due to interaction with cancer meds -- d/w Dr. Cox on 07/17 and changed to 5mg bid) Discussed with the patient, briefly, regarding goals of care. At this time he remains full code DVT prophylaxis, Eliquis Quality Stroke Does the patient have a stroke diagnosis?: No VTE Prior VTE?: No VTE Risk Level:: Medical - moderate - high VTE Device Contraindication: Treatment Not Indicated VTE Drug Contraindication: N/A - Med Ordered
[2024-07-22] MEDS: vancomycin HCL 1,000 MG, vancomycin HCL 750 MG in 0.9 % Sodium Chloride 500 ML 267.5 MG IV ×2 (11:55→23:25)
[2024-07-22] MEDS: bisacodyL 10 MG SUPP.RECT PR (21:16)
[2024-07-22] MEDS: LORazepam 0.5 MG TABLET PO (21:16)
[2024-07-23] VITALS (11 sets, daily range): BP systolic 124–150; BP diastolic 72–89; PULSE 88–103; RESP 20–22; TEMP 36.1–36.5; O2SAT 92–97
[2024-07-23] MEDS: cefEPime HCl/D5W 2 GM/50 ML PIGGYBACK IV ×3 (01:22→16:31)
[2024-07-23] MEDS: methylPREDNISolone Sod Succ 125 MG/2 ML VIAL 60 MG IVPUSH ×3 (03:27→23:01)
[2024-07-23] MEDS: Docusate Sodium 100 MG CAPSULE PO ×2 (06:13→20:39)
[2024-07-23] MEDS: Simethicone 80 MG TAB.CHEW PO ×2 (06:21→20:39)
[2024-07-23 07:04] LABS: Creatinine Clr Calc Pharmacy 138.9; Estimated Glomerular Filt Rate > 60
[2024-07-23] MEDS: Albuterol/Iprat 2.5/0.5MG 3 ML AMPUL.NEB INHALE ×3 (07:13→21:11)
[2024-07-23] MEDS: 0.9 % Sodium Chloride Flush 3 ML SYRINGE IVFLUSH ×2 (09:10→16:31)
[2024-07-23] MEDS: Sulfamethox/Trimeth 800/160 TABLET 2 TAB PO ×3 (09:10→20:38)
[2024-07-23] MEDS: Apixaban 5 MG TABLET PO ×2 (09:10→20:39)
[2024-07-23] MEDS: polyethylene glycoL 3350 17 GM POWD.PACK PO (09:11)
[2024-07-23 09:31] LABS: Hematocrit 37.6 % (42.0-52.0); Hemoglobin 12.4 g/dl (14.0-18.0); Mean Corpuscular Hemoglobin 29.5 pg (27.0-33.0); Mean Corpuscular Volume 89.5 fL (80.0-98.0); Mean Platelet Volume 10.6 fL (9.4-12.4); Platelet Count 243 X10*3/uL (160-400); Red Cell Distribution Width 14.6 % (11.0-16.0); White Blood Count 16.1 X10*3/uL (4.8-10.8)
[2024-07-23 09:48] LABS: Anion Gap 9 (12-20); Blood Urea Nitrogen 27 mg/dL (9-16); Calcium 8.4 mg/dL (8.4-10.2); Carbon Dioxide 24 mmol/L (22-29); Chloride 106 mmol/L (96-108); Creatinine Clr Calc Pharmacy 127.2; Estimated Glomerular Filt Rate > 60; Glucose Random 177 mg/dL (60-115); Potassium 4.8 mmol/L (3.3-5.1); Sodium 134 mmol/L (135-145)
--- NOTE | 2024-07-23 10:17 | MHC.CM.PN ---
Per ROUNDS discussion, Patient remains on high flow O2 and he needs more time to consider Hospice. CM will follow.
--- NOTE | 2024-07-23 10:21 | PC.RT ---
Pt taken off HFNC and placed on 6L [place], SATs 94%, pt comfortable and myles well at this time.
[2024-07-23] MEDS: vancomycin HCL 1,000 MG, vancomycin HCL 750 MG in 0.9 % Sodium Chloride 500 ML 267.5 MG IV (11:30)
--- NOTE | 2024-07-23 12:02 | P.PNIM_ITS ---
Subjective Subjective Date of Service: 07/23/24 Interval History: seen and examined reports feeling better but still hypoxic with min exertion Review of Systems Negative except HPI/interval history. Physical Exam 2 Vital Signs: Vital Signs: Last Vital Signs Temp 97.7 F 07/23/24 11:13 Pulse 93 07/23/24 11:13 Resp 20 07/23/24 11:13 BP 138/82 07/23/24 11:13 Pulse Ox 94 07/23/24 11:13 O2 Del Method High Flow Nasal C annula 07/23/24 11:13 O2 Flow Rate 40 07/23/24 11:13 FiO2 50 07/23/24 11:13 BMI result Body Mass Index 24.3 Appearing in no acute distress lung sounds are clear to auscultation heart regular rate rhythm, clear S1, S2 positive bowel sounds, abdomen is soft, nontender neuro patient is alert x3, no focal deficits Objective Data Active Medications Acetaminophen (Acetaminophen 325 Mg Tablet) 650 mg PO Q6H PRN PRN Reason: Pain, Mild 1-3,fever,headache Last Admin: 07/19/24 15:25 Dose: 650 mg Documented By: GIGI Albuterol/Ipratropium (Albuterol/Iprat 2.5/0.5mg 3 Ml Ampul.Neb) 3 ml INHALE RQ4H WHILE AWAKE [facility] Last Admin: 07/23/24 11:06 Dose: Not Given Documented By: REID Non-Admin Reason: Patient Asleep Apixaban (Apixaban 5 Mg Tablet) 5 mg PO BID [facility] Last Admin: 07/23/24 09:10 Dose: 5 mg Documented By: SOLITARIO Calcium Carbonate (Calcium Carbonate 750 Mg Tab.Chew) 750 mg PO Q4H PRN PRN Reason: Heartburn Docusate Sodium (Docusate Sodium 100 Mg Capsule) 100 mg PO BEDTIME PRN PRN Reason: Constipation Last Admin: 07/23/24 06:13 Dose: 100 mg Documented By: JARRETT Cefepime HCl (Maxipime) 2 gm in 50 mls @ 100 mls/hr IV Q8H [facility] Last Infusion: 07/23/24 09:40 Dose: Infused Documented By: SOLITARIO Vancomycin HCl 1,000 mg/Vancomycin HCl 750 mg/ Sodium Chloride 535 mls @ 267.5 mls/hr IV Q12H [facility] Last Admin: 07/23/24 11:30 Dose: 267.5 mls/hr Documented By: SOLITARIO Levalbuterol HCl (Levalbuterol Hcl 1.25 Mg/3 Ml Vial.Neb) 1.25 mg INHALE Q3H PRN PRN Reason: Wheezing Lorazepam (Lorazepam 0.5 Mg Tablet) 0.5 mg PO Q6H PRN PRN Reason: Anxiety Last Admin: 07/22/24 21:16 Dose: 0.5 mg Documented By: JARRETT Magnesium Hydroxide (Milk Of Magnesia 30 Ml Oral.Susp) 30 ml PO DAILY PRN PRN Reason: Constipation Last Admin: 07/22/24 05:28 Dose: 30 ml Documented By: JARRETT Melatonin (Melatonin 3 Mg Tablet) 6 mg PO BEDTIME PRN PRN Reason: Insomnia Methylprednisolone Sodium Succinate (Methylprednisolone Sod Succ 125 Mg/2 Ml Vial) 60 mg IVPUSH Q8H [facility] Last Admin: 07/23/24 11:29 Dose: 60 mg Documented By: SOLITARIO Morphine Sulfate (Morphine Sulfate 2 Mg/Ml Cartridge) 2 mg IVPUSH Q4H PRN; Protocol PRN Reason: respiratory distress Last Admin: 07/21/24 23:25 Dose: 2 mg Documented By: JARRETT Ondansetron HCl (Ondansetron Hcl 4 Mg/2 Ml Vial) 4 mg IVPUSH Q8H PRN PRN Reason: Nausea and Vomiting Last Admin: 07/21/24 23:25 Dose: 4 mg Documented By: JARRETT Pharmacy Consult (Consult Rx Vancomycin Dosing) 1 each MISCELLANE DAILY PRN PRN Reason: Consult order Polyethylene Glycol (Polyethylene Glycol 3350 17 Gm Powd.Pack) 17 gm PO DAILY PRN PRN Reason: Constipation Last Admin: 07/23/24 09:11 Dose: 17 gm Documented By: SOLITARIO Simethicone (Simethicone 80 Mg Tab.Chew) 80 mg PO QIDWMHS PRN PRN Reason: Gas Last Admin: 07/23/24 06:21 Dose: 80 mg Documented By: JARRETT Sodium Chloride (0.9 % Sodium Chloride Flush 3 Ml [facility]) [facility] Admin: 07/23/24 09:10 Dose: 3 ml Documented By: SOLITARIO Trimethoprim/Sulfamethoxazole (Sulfamethox/Trimeth 800/160 Tablet) 2 tab PO TID [place] Last Admin: 07/23/24 09:10 Dose: 2 tab Documented By: SOLITARIO Labs 07/23/24 09:15 07/23/24 09:15 Labs: Laboratory Results - last 24 hr 07/23/24 07/23/24 06:25 09:15 MCV 89.5 MCH 29.5 MCHC 33.0 RDW 14.6 Plt Count 243 MPV 10.6 Absolute Nucleated RBC 0.000 Nucleated RBC % (auto) 0.0 Anion Gap 9 L Estim Creat Clear Calc 138.9 127.2 Estimated GFR > 60 > 60 Random Glucose 177 H Calcium 8.4 Assessment and Plan (1) Acute respiratory failure with hypoxia: Status: Acute (2) Sepsis: Status: Acute Plan 59-year-old male with a past medical history significant for metastatic colon cancer to the lung who presented to the emergency room with diarrhea, body aches, fevers and shortness of breath which began after he started a new chemotherapeutic regimen. His workup in the emergency room including CT scan and blood work was consistent with sepsis and acute respiratory failure with hypoxia likely due to superimposed infection and underlying cancer. Acute respiratory failure with hypoxia and sepsis Due to pneumonia and underlying known metastatic cancer, cannot rule out pneumonitis off high flow, tx to 6 liters nc, keep o2 sats >88% Continue cefepime and vancomycin, bactrim for pcp and atypical coverage solumedrol 60mg q 12 (wean) Pulm following Hospice informational 07/20/24 Diarrhea followed by constipation Likely due to new chemotherapeutic agent Now resolved but more constipated Bowel regimen Hyponatremia. Resolved Improved with fluids History of pulmonary embolism On Eliquis 5 b.i.d. (initialy on 2.5mg BID due to interaction with cancer meds -- d/w Dr. Cox on 07/17 and changed to 5mg bid) Discussed with the patient, briefly, regarding goals of care. At this time he remains full code DVT prophylaxis, Eliquis DNI Quality Stroke Does the patient have a stroke diagnosis?: No VTE Prior VTE?: No VTE Risk Level:: Medical - moderate - high VTE Device Contraindication: Treatment Not Indicated VTE Drug Contraindication: N/A - Med Ordered
--- NOTE | 2024-07-23 13:07 | MHC.CM.PN ---
CM spoke with /HCP/Jayde after she and Patient spoke at length. Patient and his DO want [facility]. CM has informed CM Director, [employer]/Mari, and [facility].
[2024-07-23] MEDS: LORazepam 0.5 MG TABLET PO (20:38)
[2024-07-23 21:16] LABS: Vancomycin Random 13.6 mcg/mL (15-20)
--- NOTE | 2024-07-23 21:32 | HE.PHANOTE ---
Re: Zeo Stable renal function. Trough returned at 13.6. Dose was changed to 1250mg q8h with predicted AUC 543, predicted trough 13.6. Next trough 07/24 @ 2100.
[2024-07-23] MEDS: vancomycin HCL 1,250 MG in 0.9 % Sodium Chloride 250 ML 166.67 MG IV (23:02)
[2024-07-24] VITALS (9 sets, daily range): BP systolic 137–162; BP diastolic 81–91; PULSE 85–138; RESP 16–22; TEMP 36.1–36.6; O2SAT 90–96
[2024-07-24] MEDS: cefEPime HCl/D5W 2 GM/50 ML PIGGYBACK IV ×3 (00:33→16:28)
[2024-07-24] MEDS: vancomycin HCL 1,250 MG in 0.9 % Sodium Chloride 250 ML 166.67 MG IV ×3 (06:08→23:41)
[2024-07-24] MEDS: Albuterol/Iprat 2.5/0.5MG 3 ML AMPUL.NEB INHALE ×2 (07:24→11:06)
[2024-07-24 07:45] LABS: Creatinine Clr Calc Pharmacy 138.9; Estimated Glomerular Filt Rate > 60
--- NOTE | 2024-07-24 07:45 | PM.DS ---
DS: Providers Provider Date of Service: 07/25/24 Date of admission: 07/16/24 01:39 Date of discharge: 07/25/24 Primary care physician: Jr Quigley DO Consults: 07/16/24 09:46 Consult to Hematology / Oncology Routine Consulting Provider: Elizabeth Cox Reason for consultation: known metastatic ca, now with pneumonia/pneumonitis 07/17/24 10:49 Consult to Pulmonology Routine Consulting Provider: [facility] [place] Pulmonology Services Reason for consultation: resp failure, pnumonia, underlying ca with lung mets, ? high dose steroids DS: Diagnosis Discharge Diagnosis (1) Acute respiratory failure with hypoxia: Status: Acute (2) Sepsis: Status: Acute DS: Summary Hospital Course Hospital Course: History and physical as per admitting provider. Patient is a 59-year-old male with a past medical history significant for metastatic colon cancer who presented to the ED with diarrhea, body aches, fever and shortness of breath. He reports that he was started on a new chemotherapy agent (Adagrasib with cetuximab) for his metastatic colon cancer to the lungs and has been progressively feeling worse. Was told that diarrhea is a very common side effect with this new agent and has been taking Imodium as needed. He has diarrhea about 2 times a day without any blood stool. He also has associated nausea but no vomiting. His most bothersome symptom is the shortness of breath and weakness. He does have a chronic cough and reports that this is nonproductive and has not changed from his baseline, however he is requiring oxygen which she does not usually use. He reports any recent sick contacts. His highest temperature measured at home was 101.6. His oncologist is Dr Cox. 59-year-old man treated for acute respiratory failure with hypoxia secondary to sepsis with likely pneumonitis. Patient has history of underlying metastatic cancer. He was initially placed on high-flow for multiple days, a few attempts to wean down failed but patient was placed on 6 L nasal cannula on 07/23/2024 and has been maintaining sats over 88%. He was treated with IV cefepime, vancomycin and Bactrim for PCP and atypical coverage. Initially started on high dose steroids as per pulmonology, 125 mg Q 8 hours, this was weaned down and patient will be discharged on steroid taper. Patient did have a hospice informational and decided to be discharged home with hospice services. Patient did have some episodes of diarrhea followed by constipation likely secondary to chemotherapeutic agents but constipation did resolve. He was noted to have some hyponatremia but improved with IV fluids. He does have a history of pulmonary embolus and is on Eliquis 5 mg b.i.d., initially has been on 2.5 mg b.i.d. due to interaction with his chemotherapy medications but dose increased as per Oncology. Physical Exam Vital Signs: Vital Signs: Last Vital Signs Temp 97.0 F 07/24/24 07:01 Pulse 85 07/24/24 07:24 Resp 20 07/24/24 07:24 BP 162/84 H 07/24/24 07:01 Pulse Ox 96 07/24/24 07:01 O2 Del Method Nasal Cannula 07/24/24 07:01 O2 Flow Rate 5 07/24/24 07:01 FiO2 50 07/23/24 11:13 BMI result Body Mass Index 24.3 Appearing in no acute distress head is normocephalic atraumatic eyes pupils are PERRLA sclera is anicteric mouth throat mucous membranes are intact and moist neck is supple no lymphadenopathy, no JVD noted lung sounds are clear to auscultation heart regular rate rhythm, clear S1, S2 positive bowel sounds, abdomen is soft, nontender neuro patient is alert x3, no focal deficits DS: Data Data Completed and Pending Labs on day of discharge: Laboratory Results - last 24 hr 07/23/24 07/23/24 07/24/24 09:15 20:50 06:17 WBC 16.1 H RBC 4.20 L Hgb 12.4 L Hct 37.6 L MCV 89.5 MCH 29.5 MCHC 33.0 RDW 14.6 Plt Count 243 MPV 10.6 Absolute Nucleated RBC 0.000 Nucleated RBC % (auto) 0.0 Hold Purple Top SEE NOTE Sodium 134 L Potassium 4.8 Chloride 106 Carbon Dioxide 24 Anion Gap 9 L BUN 27 H Creatinine 0.59 0.54 Estim Creat Clear Calc 127.2 138.9 Estimated GFR > 60 > 60 Random Glucose 177 H Calcium 8.4 Random Vancomycin 13.6 L Discharge Plan Discharge Anticipated Discharge Date/Time: 07/25/24 07:15 Patient Disposition: Hospice - Home Discharge Diagnosis: Acute respiratory failure with hypoxia Pneumonia Sepsis Diarrhea/constipation Hyponatremia Metastatic cancer Referrals: [facility] [Outside] - 1 Week Jr Quigley DO [Primary Care Provider] - 1 Week Discharge Medications: New Eliquis 5 mg Tablet 5 mg PO BID Qty: 60 0RF Continued ondansetron 8 mg Tablet,Disintegrating 8 mg PO Q8H PRN (Reason: Nausea And Vomiting) Qty: 30 3RF dextromethorphan polistirex [Delsym 12 hour] 30 mg/5 mL Suspension,Extended Rel 12 Hr 10 ml PO Q12H PRN (Reason: Cough) amlodipine 10 mg Tablet 10 mg PO DAILY Qty: 90 3RF adagrasib 200 mg Tablet 600 mg PO BID Qty: 180 3RF triamcinolone acetonide 0.1 % Cream 1 appl TOPICAL DAILY Qty: 45 0RF acetaminophen [Tylenol] 325 mg Tablet 650 mg PO QID PRN (Reason: Pain) loperamide [Imodium] 2 mg Capsule 2 mg PO QID PRN (Reason: Diarrhea) albuterol sulfate 90 mcg/actuation HFA aerosol inhaler 2 puff inhalation Q4-6H PRN (Reason: shortness of breath or wheezing) Qty: 8.5 0RF loratadine 10 mg tablet 10 mg PO DAILY Discontinued Eliquis 2.5 mg Tablet 2.5 mg PO BID Diet: Advance to usual diet Activity on Discharge: As tolerated Stand Alone Forms: Patient Portal Discharge page Print Language: Sinhala Care Plan Goals: Home with hospice services Home with oxygen Health Concerns: Acute respiratory failure with hypoxia Pneumonia Sepsis Diarrhea/constipation Hyponatremia Metastatic cancer Plan of Treatment: Follow-up with primary care provider as needed Assessment: See discharge summary
[2024-07-24] MEDS: 0.9 % Sodium Chloride Flush 3 ML SYRINGE IVFLUSH ×3 (08:16→23:41)
[2024-07-24] MEDS: Sulfamethox/Trimeth 800/160 TABLET 2 TAB PO ×3 (08:16→20:46)
[2024-07-24] MEDS: Apixaban 5 MG TABLET PO ×2 (08:16→20:46)
--- NOTE | 2024-07-24 11:13 | P.PNIM_ITS ---
Subjective Subjective Date of Service: 07/24/24 Interval History: seen and examined reports feeling better but still hypoxic with min exertion Review of Systems Negative except HPI/interval history. Physical Exam 2 Vital Signs: Vital Signs: Last Vital Signs Temp 97.0 F 07/24/24 07:01 Pulse 85 07/24/24 11:06 Resp 18 07/24/24 11:06 BP 162/84 H 07/24/24 07:01 Pulse Ox 90 L 07/24/24 08:13 O2 Del Method Nasal Cannula 07/24/24 07:01 O2 Flow Rate 5 07/24/24 07:01 FiO2 50 07/23/24 11:13 BMI result Body Mass Index 24.3 Appearing in no acute distress lung sounds are clear to auscultation heart regular rate rhythm, clear S1, S2 positive bowel sounds, abdomen is soft, nontender neuro patient is alert x3, no focal deficits Objective Data Active Medications Acetaminophen (Acetaminophen 325 Mg Tablet) 650 mg PO Q6H PRN PRN Reason: Pain, Mild 1-3,fever,headache Last Admin: 07/19/24 15:25 Dose: 650 mg Documented By: GIGI Albuterol/Ipratropium (Albuterol/Iprat 2.5/0.5mg 3 Ml Ampul.Neb) 3 ml INHALE RQ4H WHILE AWAKE [facility] Last Admin: 07/24/24 11:06 Dose: 3 ml Documented By: REID Apixaban (Apixaban 5 Mg Tablet) 5 mg PO BID [facility] Last Admin: 07/24/24 08:16 Dose: 5 mg Documented By: DELIA Calcium Carbonate (Calcium Carbonate 750 Mg Tab.Chew) 750 mg PO Q4H PRN PRN Reason: Heartburn Docusate Sodium (Docusate Sodium 100 Mg Capsule) 100 mg PO BEDTIME PRN PRN Reason: Constipation Last Admin: 07/23/24 20:39 Dose: 100 mg Documented By: HOSSEIN Cefepime HCl (Maxipime) 2 gm in 50 mls @ 100 mls/hr IV Q8H [facility] Last Infusion: 07/24/24 09:10 Dose: Infused Documented By: DELIA Vancomycin HCl 1,250 mg/ (Sodium Chloride) 250 mls @ 166.667 mls/hr IV Q8H [facility] Last Infusion: 07/24/24 08:09 Dose: Infused Documented By: DELIA Levalbuterol HCl (Levalbuterol Hcl 1.25 Mg/3 Ml Vial.Neb) 1.25 mg INHALE Q3H PRN PRN Reason: Wheezing Lorazepam (Lorazepam 0.5 Mg Tablet) 0.5 mg PO Q6H PRN PRN Reason: Anxiety Last Admin: 07/23/24 20:38 Dose: 0.5 mg Documented By: HOSSEIN Magnesium Hydroxide (Milk Of Magnesia 30 Ml Oral.Susp) 30 ml PO DAILY PRN PRN Reason: Constipation Last Admin: 07/22/24 05:28 Dose: 30 ml Documented By: JARRETT Melatonin (Melatonin 3 Mg Tablet) 6 mg PO BEDTIME PRN PRN Reason: Insomnia Methylprednisolone Sodium Succinate (Methylprednisolone Sod Succ 125 Mg/2 Ml Vial) 60 mg IVPUSH Q12H [place] Last Admin: 07/23/24 23:01 Dose: 60 mg Documented By: HOSSEIN Morphine Sulfate (Morphine Sulfate 2 Mg/Ml Cartridge) 2 mg IVPUSH Q4H PRN; Protocol PRN Reason: respiratory distress Last Admin: 07/21/24 23:25 Dose: 2 mg Documented By: JARRETT Ondansetron HCl (Ondansetron Hcl 4 Mg/2 Ml Vial) 4 mg IVPUSH Q8H PRN PRN Reason: Nausea and Vomiting Last Admin: 07/21/24 23:25 Dose: 4 mg Documented By: JARRETT Pharmacy Consult (Consult Rx Vancomycin Dosing) 1 each MISCELLANE DAILY PRN PRN Reason: Consult order Polyethylene Glycol (Polyethylene Glycol 3350 17 Gm Powd.Pack) 17 gm PO DAILY PRN PRN Reason: Constipation Last Admin: 07/23/24 09:11 Dose: 17 gm Documented By: SOLITARIO Simethicone (Simethicone 80 Mg Tab.Chew) 80 mg PO QIDWMHS PRN PRN Reason: Gas Last Admin: 07/23/24 20:39 Dose: 80 mg Documented By: HOSSEIN Sodium Chloride (0.9 % Sodium Chloride Flush 3 Ml Syringe) [facility] Last Admin: 07/24/24 08:16 Dose: 3 ml Documented By: DELIA Trimethoprim/Sulfamethoxazole (Sulfamethox/Trimeth 800/160 Tablet) 2 tab PO TID [place] Last Admin: 07/24/24 08:16 Dose: 2 tab Documented By: DELIA Labs 07/23/24 09:15 07/24/24 06:17 Labs: Laboratory Results - last 24 hr 07/23/24 07/24/24 20:50 06:17 Hold Purple Top SEE NOTE Estim Creat Clear Calc 138.9 Estimated GFR > 60 Random Vancomycin 13.6 L Assessment and Plan (1) Acute respiratory failure with hypoxia: Status: Acute (2) Sepsis: Status: Acute Plan 59-year-old male with a past medical history significant for metastatic colon cancer to the lung who presented to the emergency room with diarrhea, body aches, fevers and shortness of breath which began after he started a new chemotherapeutic regimen. His workup in the emergency room including CT scan and blood work was consistent with sepsis and acute respiratory failure with hypoxia likely due to superimposed infection and underlying cancer. Acute respiratory failure with hypoxia and sepsis Due to pneumonia and underlying known metastatic cancer, cannot rule out pneumonitis off high flow, tx to 6 liters nc, keep o2 sats >88% Continue cefepime and vancomycin, bactrim for pcp and atypical coverage solumedrol weaned down to prednisone, plan to for Pred 60 daily and taper by 10mg every 4 days. Pulm following Hospice informational 07/20/24 Diarrhea followed by constipation Likely due to new chemotherapeutic agent Now resolved but more constipated Bowel regimen Hyponatremia. Resolved Improved with fluids History of pulmonary embolism On Eliquis 5 b.i.d. (initialy on 2.5mg BID due to interaction with cancer meds -- d/w Dr. Cox on 07/17 and changed to 5mg bid) Discussed with the patient, briefly, regarding goals of care. At this time he remains full code DVT prophylaxis, Eliquis DNI DISPO plan for dc with hospice when medically clear Quality Stroke Does the patient have a stroke diagnosis?: No VTE Prior VTE?: No VTE Risk Level:: Medical - moderate - high VTE Device Contraindication: Treatment Not Indicated VTE Drug Contraindication: N/A - Med Ordered
--- NOTE | 2024-07-24 11:25 | MHC.CM.PN ---
Goal is for Hospice equipment to be delivered tonight and hope for dc to home with Hospice tomorrow. CM will follow.
[2024-07-24] MEDS: methylPREDNISolone Sod Succ 125 MG/2 ML VIAL 60 MG IVPUSH ×2 (11:37→23:41)
[2024-07-24] MEDS: LORazepam 0.5 MG TABLET PO (11:37)
--- NOTE | 2024-07-24 13:13 | MHC.CM.PN ---
Patient will be dc'd to home tomorrow at noon, via [facility] ambulance, with [facility]. CM spoke with /HCP/Jayde at listed number and she and Patient are in agreement with the dc plan.
[2024-07-24] MEDS: Morphine Sulfate 2 MG/ML CARTRIDGE IVPUSH (19:01)
[2024-07-24] MEDS: Docusate Sodium 100 MG CAPSULE PO (20:46)
[2024-07-24] MEDS: Simethicone 80 MG TAB.CHEW PO (20:46)
[2024-07-24 21:43] LABS: Vancomycin Trough 17.9 mcg/mL (10.0-20.0)
--- NOTE | 2024-07-24 22:12 | HE.PHANOTE ---
RE: VANCO DOSING Trough came back as 17.9 mg/L (predicted 11.5 mg/L). Renal function is stable, WBC is still high, continue with dose of 1250 mg q8h for 2 more doses, next trough is scheduled for 07/25/24 @1300.
[2024-07-25] VITALS: BP 149/86; PULSE 88; RESP 20; TEMP 36.5; O2SAT 94
[2024-07-25] MEDS: cefEPime HCl/D5W 2 GM/50 ML PIGGYBACK IV ×2 (01:11→08:54)
[2024-07-25 04:00] VITALS: BP 163/91; PULSE 93; RESP 20; TEMP 36.1; O2SAT 96
[2024-07-25] MEDS: LORazepam 0.5 MG TABLET PO (04:50)
[2024-07-25] MEDS: vancomycin HCL 1,250 MG in 0.9 % Sodium Chloride 250 ML 166.67 MG IV (06:35)
[2024-07-25 07:42] LABS: Creatinine Clr Calc Pharmacy 141.6; Estimated Glomerular Filt Rate > 60
[2024-07-25 07:48] VITALS: BP 150/80; PULSE 78; RESP 18; TEMP 36.8; O2SAT 95
[2024-07-25] MEDS: predniSONE 20 MG TABLET 60 MG PO (08:46)
[2024-07-25] MEDS: polyethylene glycoL 3350 17 GM POWD.PACK PO (08:46)
[2024-07-25] MEDS: Simethicone 80 MG TAB.CHEW PO (08:46)
[2024-07-25] MEDS: Apixaban 5 MG TABLET PO (08:46)
[2024-07-25] MEDS: Sulfamethox/Trimeth 800/160 TABLET 2 TAB PO (08:46)
[2024-07-25] MEDS: 0.9 % Sodium Chloride Flush 3 ML SYRINGE IVFLUSH (08:54)
--- NOTE | 2024-07-25 11:50 | PM.DS ---
DS: Providers Provider Date of Service: 07/25/24 Date of admission: 07/16/24 01:39 Date of discharge: 07/25/24 Primary care physician: Jr Quigley DO Consults: 07/16/24 09:46 Consult to Hematology / Oncology Routine Consulting Provider: Elizabeth Cox Reason for consultation: known metastatic ca, now with pneumonia/pneumonitis 07/17/24 10:49 Consult to Pulmonology Routine Consulting Provider: [facility] Reason for consultation: resp failure, pnumonia, underlying ca with lung mets, ? high dose steroids DS: Diagnosis Discharge Diagnosis (1) Acute respiratory failure with hypoxia: Status: Acute (2) Sepsis: Status: Acute DS: Summary Hospital Course Hospital Course: History and physical as per admitting provider. Patient is a 59-year-old male with a past medical history significant for metastatic colon cancer who presented to the ED with diarrhea, body aches, fever and shortness of breath. He reports that he was started on a new chemotherapy agent (Adagrasib with cetuximab) for his metastatic colon cancer to the lungs and has been progressively feeling worse. Was told that diarrhea is a very common side effect with this new agent and has been taking Imodium as needed. He has diarrhea about 2 times a day without any blood stool. He also has associated nausea but no vomiting. His most bothersome symptom is the shortness of breath and weakness. He does have a chronic cough and reports that this is nonproductive and has not changed from his baseline, however he is requiring oxygen which she does not usually use. He reports any recent sick contacts. His highest temperature measured at home was 101.6. His oncologist is Dr Cox. 59-year-old man treated for acute respiratory failure with hypoxia secondary to sepsis with likely pneumonitis. Patient has history of underlying metastatic cancer. He was initially placed on high-flow for multiple days, a few attempts to wean down failed but patient was placed on 6 L nasal cannula on 07/23/2024 and has been maintaining sats over 88%. He was treated with IV cefepime, vancomycin and Bactrim for PCP and atypical coverage. Initially started on high dose steroids as per pulmonology, 125 mg Q 8 hours, this was weaned down and patient will be discharged on steroid taper. Patient did have a hospice informational and decided to be discharged home with hospice services. Patient did have some episodes of diarrhea followed by constipation likely secondary to chemotherapeutic agents but constipation did resolve. He was noted to have some hyponatremia but improved with IV fluids. He does have a history of pulmonary embolus and is on Eliquis 5 mg b.i.d., initially has been on 2.5 mg b.i.d. due to interaction with his chemotherapy medications but dose increased as per Oncology. Time Attestation Discharge Coordination Time (in mins): 42 Quality: Safe Use of Opioids Does Pt have an Active Cancer Diagnosis on the Problem List?: No Quality: Stroke Does the patient have a stroke diagnosis?: No Physical Exam Vital Signs: Vital Signs: Last Vital Signs Temp 98.2 F 07/25/24 07:48 Pulse 78 07/25/24 07:48 Resp 18 07/25/24 07:48 BP 150/80 H 07/25/24 07:48 Pulse Ox 95 07/25/24 07:48 O2 Del Method Nasal Cannula 07/25/24 07:48 O2 Flow Rate 5 07/25/24 07:48 FiO2 50 07/23/24 11:13 BMI result Body Mass Index 24.3 Appearing in no acute distress head is normocephalic atraumatic eyes pupils are PERRLA sclera is anicteric mouth throat mucous membranes are intact and moist neck is supple no lymphadenopathy, no JVD noted lung sounds are clear to auscultation heart regular rate rhythm, clear S1, S2 positive bowel sounds, abdomen is soft, nontender neuro patient is alert x3, no focal deficits DS: Data Data Completed and Pending Labs on day of discharge: Laboratory Results - last 24 hr 07/24/24 07/25/24 21:12 06:33 Creatinine 0.53 Estim Creat Clear Calc 141.6 Estimated GFR > 60 Vancomycin Trough 17.9 Discharge Plan Discharge Anticipated Discharge Date/Time: 07/25/24 07:15 Patient Disposition: Hospice - Home Discharge Diagnosis: Acute respiratory failure with hypoxia Pneumonia Sepsis Diarrhea/constipation Hyponatremia Metastatic cancer Referrals: [place] [facility] [Outside] - 1 Week Jr Quigley DO [Primary Care Provider] - 1 Week Discharge Medications: New Eliquis 5 mg Tablet 5 mg PO BID Qty: 60 0RF prednisone 10 mg tablet See Taper PO DIRECTED Qty: 78 0RF Taper: Prednisone 60 mg daily for 3 Days and 0 Hour 50 mg daily for 4 Days and 0 Hour 40 mg daily for 4 Days and 0 Hour 30 mg daily for 4 Days and 0 Hour 20 mg daily for 4 Days 10 mg daily for 4 Days Rx Instructions: see taper instructions albuterol sulfate 2.5 mg /3 mL (0.083 %) solution for nebulization 2.5 mg inhalation Q4H PRN (Reason: shortness of breath or wheezing) Qty: 180 0RF doxycycline hyclate 100 mg tablet 100 mg PO BID Qty: 10 0RF Continued ondansetron 8 mg Tablet,Disintegrating 8 mg PO Q8H PRN (Reason: Nausea And Vomiting) Qty: 30 3RF dextromethorphan polistirex [Delsym 12 hour] 30 mg/5 mL Suspension,Extended Rel 12 Hr 10 ml PO Q12H PRN (Reason: Cough) amlodipine 10 mg Tablet 10 mg PO DAILY Qty: 90 3RF adagrasib 200 mg Tablet 600 mg PO BID Qty: 180 3RF triamcinolone acetonide 0.1 % Cream 1 appl TOPICAL DAILY Qty: 45 0RF acetaminophen [Tylenol] 325 mg Tablet 650 mg PO QID PRN (Reason: Pain) loperamide 2 mg Capsule 2 mg PO QID PRN (Reason: Diarrhea) albuterol sulfate 90 mcg/actuation HFA aerosol inhaler 2 puff inhalation Q4-6H PRN (Reason: shortness of breath or wheezing) Qty: 8.5 0RF loratadine 10 mg tablet 10 mg PO DAILY Discontinued Eliquis 2.5 mg Tablet 2.5 mg PO BID Discharge Orders: Discharge Order (Routine); Ordered 07/25/24 Ordered By: Mari Johns Diet: Advance to usual diet Activity on Discharge: As tolerated Stand Alone Forms: Patient Portal Discharge page Print Language: Tamazight Care Plan Goals: Home with hospice services Home with oxygen Health Concerns: Acute respiratory failure with hypoxia Pneumonia Sepsis Diarrhea/constipation Hyponatremia Metastatic cancer Plan of Treatment: Follow-up with primary care provider as needed Assessment: See discharge summary
[2024-07-25 12:00] VITALS: BP 139/80; PULSE 85; RESP 18; TEMP 36.6; O2SAT 95
== END 2024-07-25 13:06 | disposition hospice, home (50) | DRG 871 ==
LOC: HO.ED 22:58 → HO.EDOVER 07-16 01:47 → HO.IMC 07-16 16:00
PROVIDERS: Family Medicine; Hospitalist; Physician Assistant Medical; Admitting Provider Student in an Organized Health Care Education/Training Program; Emergency Provider Emergency Medicine; PCP Internal Medicine; Visit Provider Nurse Practitioner Acute Care
DX: A41.9 Sepsis, unspecified organism (principal); J18.9 Pneumonia, unspecified organism; J96.01 Acute respiratory failure with hypoxia; C18.7 Malignant neoplasm of sigmoid colon; C78.02 Secondary malignant neoplasm of left lung; C78.01 Secondary malignant neoplasm of right lung; C79.51 Secondary malignant neoplasm of bone; E87.1 Hypo-osmolality and hyponatremia; K52.1 Toxic gastroenteritis and colitis; Z51.5 Encounter for palliative care; K59.00 Constipation, unspecified; T45.1X5A Adverse effect of antineoplastic and immunosuppressive drugs, initial encounter; Z86.711 Personal history of pulmonary embolism; Z20.822 Contact with and (suspected) exposure to COVID-19; Z79.899 Other long term (current) drug therapy
CPT/HCPCS: 0241U; 36415; 71045; 71260; 74177; 80048; 80053; 80202; 81001; 82550; 82565; 82803; 83605; 83615; 83690; 83735; 83880; 84145; 85025; 85027; 85610; 85652; 87040; 87633; 93005; 94640; 97163; 99285; J0692; J1956; J2270; J2405; J2919; J3370; J3371; Q9967

== ENCOUNTER → 2024-07-15 20:10 | Outpatient (BNV) | payer OTHER, SELFPAY | PROVIDERS: Admitting Provider Student in an Organized Health Care Education/Training Program; Emergency Provider Emergency Medicine; PCP Internal Medicine; Visit Provider Internal Medicine Cardiovascular Disease | DX: R00.0 Tachycardia, unspecified (principal); R06.00 Dyspnea, unspecified | CPT/HCPCS: 93010 ==

== ENCOUNTER → 2024-07-15 20:10 | Outpatient (BNV) | payer OTHER, SELFPAY | PROVIDERS: Emergency Provider Emergency Medicine; PCP Internal Medicine; Visit Provider Radiology Neuroradiology | DX: R50.9 Fever, unspecified (principal); R06.02 Shortness of breath; R09.02 Hypoxemia; R19.7 Diarrhea, unspecified | CPT/HCPCS: 71045; 71260; 74177 ==

== ENCOUNTER → 2024-07-16 01:39 | Outpatient (BNV) | payer OTHER, SELFPAY | PROVIDERS: Admitting Provider Student in an Organized Health Care Education/Training Program; Emergency Provider Emergency Medicine; PCP Internal Medicine; Visit Provider Internal Medicine | DX: C18.7 Malignant neoplasm of sigmoid colon (principal); C78.00 Secondary malignant neoplasm of unspecified lung | CPT/HCPCS: 99222 ==

== ENCOUNTER → 2024-07-16 01:39 | Outpatient (BNV) | payer OTHER, SELFPAY | PROVIDERS: Admitting Provider Student in an Organized Health Care Education/Training Program; Emergency Provider Emergency Medicine; PCP Internal Medicine; Visit Provider Physician Assistant | DX: A41.9 Sepsis, unspecified organism (principal); J96.01 Acute respiratory failure with hypoxia; J18.9 Pneumonia, unspecified organism; C18.9 Malignant neoplasm of colon, unspecified; C78.00 Secondary malignant neoplasm of unspecified lung; R19.7 Diarrhea, unspecified; E87.1 Hypo-osmolality and hyponatremia | CPT/HCPCS: 99223; 99499 ==

== ENCOUNTER → 2024-07-16 01:39 | Outpatient (BNV) | payer OTHER, SELFPAY | PROVIDERS: Admitting Provider Student in an Organized Health Care Education/Training Program; Emergency Provider Emergency Medicine; PCP Internal Medicine; Visit Provider Hospitalist | DX: J96.01 Acute respiratory failure with hypoxia (principal); J18.9 Pneumonia, unspecified organism; J98.4 Other disorders of lung; R91.8 Other nonspecific abnormal finding of lung field | CPT/HCPCS: 99223; 99232; 99233 ==